=== PATIENT | female | born 1955 | race Caucasian/White ===

== ENCOUNTER → 2021-09-24 08:51 | Outpatient (CLI) | payer MEDICARE, SELFPAY ==
--- NOTE | 2021-09-24 | DI.MG.S_ITS ---
BILATERAL DIGITAL SCREENING MAMMOGRAM 3D/2D WITH CAD: 09/24/2021 CLINICAL: Routine screening. Personal history of right breast cancer. Comparison is made to exams dated: 11/04/2018 mammogram - [facility], 09/17/2016 mammogram, and 10/18/2014 mammogram - [facility]. There are scattered fibroglandular elements in both breasts. Current study was also evaluated with a Computer Aided Detection (CAD) system. There are benign calcifications in both breasts. There also are benign post operative findings in the right breast. No significant masses, calcifications, or other findings are seen in either breast. There has been no significant interval change. IMPRESSION: BENIGN There is no mammographic evidence of malignancy. A 1 year screening mammogram is recommended. This exam was interpreted at Station ID: [id number]. NOTE: For mammograms, a report in lay terms will be sent to the patient. Approximately 15% of breast malignancies will not be visualized mammographically. In the management of a palpable breast mass, a negative mammogram must not discourage biopsy of a clinically suspicious lesion. Electronically Signed By: Osman Yang acr/penrad:09/24/2021 10:15:22 letter sent: Normal Exam ACR BI-RADS Category 2: Benign Finding(s) 3342F
== END ==
PROVIDERS: Family Provider Family Medicine; PCP Family Medicine; Referring Provider Family Medicine; Visit Provider Family Medicine
DX: Z12.31 Encounter for screening mammogram for malignant neoplasm of breast (principal); Z85.3 Personal history of malignant neoplasm of breast
CPT/HCPCS: 77063; 77067

== ENCOUNTER 2021-11-21 13:57 | Observation (INO) | payer MEDICARE, SELFPAY ==
[2021-11-21] VITALS (7 sets, daily range): BP systolic 148–181; BP diastolic 49–72; PULSE 69–79; RESP 13–19; TEMP 36.9–37.1; O2SAT 94–100; BMI 23.3
--- NOTE | 2021-11-21 14:22 | DI.CT.S_ITS ---
PROCEDURE: CT HEAD/BRAIN WO CON INDICATIONS: neuro symptoms, dizzy, diplopia, gaze disturbance, NOT TPA TECHNIQUE: Noncontrast 4.5 mm thick angled axial sections acquired from the foramen magnum to the vertex, with coronal and sagittal reformats. For radiation dose reduction, the following was used: automated exposure control, adjustment of mA and/or kV according to patient size. COMPARISON: [facility], CT, CT ANGIO HEAD AND NECK, 11/21/2021, 14:33. FINDINGS: Image quality: There is artifact associated with the metallic hardware. Mild streak artifact can be seen through the skull base. CSF spaces: Basal cisterns are patent. No extra-axial fluid collections. The ventricles are symmetric in size and shape. Brain: Coils are seen along the left aspect of the left aspect of the anterior communicating artery. No intracranial bleeds or masses. There is cerebral volume loss for age, with resultant ventricular and sulcal prominence. There are periventricular and deep white matter chronic small vessel ischemic changes. There is intracranial internal carotid artery atherosclerosis. Skull and face: Calvarium and visualized facial bones appear intact, without suspicious lesions. Sinuses: Visualized sinuses and mastoids are clear. IMPRESSION: No acute intracranial hemorrhage is seen. No acute intracranial process is seen. Coils are seen along region of the left aspect of the anterior communicating artery. Note: Case discussed by telephone with Dr. Jain at 2:05 p.m. [place] time on November 21, 2021. Dictated by: Eduardo Sue M.D. on 11/21/2021 at 14:02 Approved by: Eduardo Sue M.D. on 11/21/2021 at 14:11
--- NOTE | 2021-11-21 14:23 | DI.CT.S_ITS ---
PROCEDURE: CT ANGIO HEAD AND NECK INDICATIONS: stroke symptoms TECHNIQUE: Noncontrast images were performed earlier in the day and not repeated. After the administration of intravenous contrast, 1 mm thick sections acquired from the aortic arch through the [place]. Post-contrast 4.5 mm thick sections then re-acquired from the foramen magnum to the vertex. 3-dimensional yaffxme-jfeqnfsro-xtqiobbimc (MIP) and/or volume rendering reformats were acquired of the central intracranial vasculature and neck separately. COMPARISON: [facility], CT, CT HEAD/BRAIN WO CON, 11/21/2021, 14:33. FINDINGS: Image quality: Excellent. BRAIN: CSF spaces: Ventricles are normal in size and shape. Basal cisterns are patent. No extra-axial fluid collections. Brain: No midline shift. No intracranial bleeds or masses. [place]-white matter interface appears intact. Skull and face: Calvarium and facial bones appear intact, without suspicious lesions. Orbits appear normal. Sinuses: Sinuses and mastoids are clear. HEAD CT ANGIOGRAPHY: Anterior circulation: Intracranial internal carotid arteries are normal in size and flow. There is a hypoplastic right A1 segment, with a corresponding robust left A1 segment. This is considered to be a normal developmental variant of the [place], of typically no clinical consequence. The flow within the paired anterior cerebral arteries is otherwise normal and symmetric. The flow within the middle cerebral arteries is normal and symmetric. The anterior communicating artery is seen. Coils are seen along the left aspect of the anterior communicating artery. No recurrent aneurysm can be seen. No new aneurysms are seen. Posterior circulation: Visualized portions of the vertebral arteries demonstrate normal caliber, and join to form a normal appearing basilar artery. Flow within the posterior cerebral arteries is normal and symmetric. No aneurysms are seen. NECK CT ANGIOGRAPHY: Carotid system: The great vessels demonstrate a conventional anatomy as they arise from the aortic arch. The origins of the common carotid arteries appear patent. The common carotid arteries demonstrate normal caliber and courses. Prominent atherosclerotic calcification can be seen throughout. Prominent focal calcification can be seen involving the carotid bifurcation regions, with 80-90% narrowing on the left and 70 80% narrowing on the right. The more distal internal carotid arteries demonstrate normal course and caliber. Posterior circulation: The origins of the vertebral arteries both appear widely patent. The more superior extracranial portions of both vertebral arteries also demonstrate normal courses and calibers. They join to form a normal appearing basilar artery. Soft tissues: Visualized neck soft tissues demonstrate no suspicious abnormalities. Likely scarring can be seen at the lung apices. Bones: No suspicious bony lesions. Visualized cervical spine appears normally aligned. At least moderate cervical spine degenerative change can be seen. IMPRESSION: Dense atherosclerotic calcification with significant narrowing can be seen involving the proximal internal carotid arteries, with 80-90% narrowing on the left and 70-80% narrowing on the right. Vascular surgery/interventional radiology consultation is recommended. 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 No new aneurysm is detected. 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 Note: Case discussed by telephone with Dr. Jain at 2:05 p.m. [place] time on November 21, 2021. Any quantitative measurements of stenosis were performed using NASCET criteria. Dictated by: Eduardo Sue M.D. on 11/21/2021 at 14:11 Approved by: Eduardo Sue M.D. on 11/21/2021 at 14:14
--- NOTE | 2021-11-21 14:33 | ED.NEUROSD ---
HPI - Neuro Symptoms/Deficit General Chief Complaint: Neuro Symptoms/Deficit Stated Complaint: Needs neurological exam- sent from [facility] Time Seen by Provider: 11/21/21 14:03 Source: patient Mode of arrival: Wheelchair History of Present Illness HPI Narrative: 65F nonsmoker with history of hypertension and hyperlipidemia presents with family from her primary care provider's office for neurologic symptoms upon waking today. She went to bed in her normal state of health and woke up at 8 3 this morning and noticed that her right eye was not working correctly and she sees double. She has a history of PTSD and relates her chronic gait disturbance to this but states she is much more dizzy and having more difficulty ambulating than normal. She states this is more than just double vision. She denies any recent trauma or head injury. She has no neck pain. She denies fever or chills. She denies any other obvious focal neurologic symptoms such as numbness, tingling or weakness. She had an aneurysm clipped years ago. On Anticoagulants: No Related Data Previous Rx's Medication Instructions Recorded ibuprofen 600 mg tablet 600 mg PO Q6HP PRN #60 tab 12/17/16 losartan 50 mg tablet (Cozaar) 50 mg PO Q DAY #90 tab 12/23/16 sertraline 100 mg tablet 100 mg PO QDAY #90 tab 02/11/17 propranolol 10 mg tablet 10 mg PO BID #180 tab 02/26/17 atorvastatin 40 mg tablet (Lipitor) 40 mg PO HS #90 tab 03/05/17 omeprazole 20 mg tablet,delayed 20 mg PO QDAY #90 tab 03/19/17 release ibandronate 150 mg tablet (Boniva) 150 mg PO Q MONTH #6 tab 04/03/17 alprazolam 0.25 mg tablet 0.25 mg PO QDAYP PRN #28 tab 04/07/17 prednisone 20 mg tablet 20 mg PO QDAY #10 tab 04/11/17 prednisone 5 mg tablets in a dose 0 PO QDAY #28 tab 04/21/17 pack spironolactone 25 mg tablet 0 PO SEE INSTRUCTIONS #120 tab 06/20/17 Allergies Allergy/AdvReac Type Severity Reaction Status Date / Time meperidine [MEPERIDINE] Allergy Mild RASH Verified 11/21/21 14:16 lisinopril [LISINOPRIL] AdvReac Mild ough Verified 11/21/21 14:16 Review of Systems Review of Systems Narrative: GENERAL: Denies chills, fatigue, malaise, fever, sweats. HEENT: Denies sinus pain, ear pain, sore throat, difficulty swallowing, dizziness. RESPIRATORY: Denies dyspnea, cough, wheezing, hemoptysis, sputum. CARDIOVASCULAR: Denies chest pain, palpitations, orthopnea, edema, GASTROINTESTINAL: Denies nausea, vomiting, abdominal pain, diarrhea, constipation, melena. : Denies dysuria, frequency, incontinence, hematuria, urinary retention. MUSCULOSKELETAL: denies weakness, joint pain, or bony pain SKIN: Denies rash, skin lesions, or other NEUROLOGIC: See HPI PSYCHIATRIC: No concerning psychosocial issues. 12 point review of systems is negative except for those stated above Hematologic/Lymphatic On Anticoagulants: No Patient History Social History Smoking Status: Unknown if ever smoked Smoking Status: Unknown if ever smoked alcohol intake frequency: holidays/special occasions only Substance Use Type: does not use Exam Narrative Exam Narrative: GENERAL: [65 year old patient appears stated age. Well-developed patient, in mild distress. HEAD: Atraumatic. Normocephalic. EYES: Pupils equal round and reactive. Extraocular motions intact. Patient has ptosis of the right upper lid, patient unable toscleral icterus. No injection or drainage. ENT: Nose without bleeding, purulent drainage. Throat without erythema, tonsillar hypertrophy or exudate. Airway patent. NECK: Trachea midline. Non tender CARDIOVASCULAR: Regular rate and rhythm without murmurs, gallops, or rubs. RESPIRATORY: Clear to auscultation. Breath sounds equal bilaterally. No wheezes, rales, or rhonchi. GASTROINTESTINAL: Abdomen soft, non-tender, nondistended. EXTREMITIES: No edema or joint tenderness. BACK: Nontender without deformity or crepitance. No flank tenderness. NEURO: AOx3. SKIN: No rash or erythema of visible areas Initial Vital Signs Initial Vital Signs: Vital Signs Temperature 98.7 F 11/21/21 14:10 Pulse Rate 79 11/21/21 14:10 Respiratory Rate 14 11/21/21 14:10 Blood Pressure 181/72 H 11/21/21 14:10 Pulse Oximetry 99 11/21/21 14:10 Scores NIH Stroke Scale Level of Conciousness: Alert, keenly responsive Ask month/age: Answers both questions correctly. Open/close eyes, close hand: Performs both tasks correctly Best gaze horizontal: Forced deviation or total gaze paresis not overcome Visual judd: No visual loss Facial palsy: Normal symetrical movement Left arm drift: No drift for full 10 sec Right arm drift: No drift for full 10 sec Left leg drift: No drift for full 5 sec Right leg drift: No drift for full 5 sec Limb ataxia: Absent Sensory on face/arms/legs: Normal, no sensory loss Best language: No aphasia, normal Dysarthria: Normal Extinction or inattention: No abnormality Total NIH Stroke scale score: 2 Course Orders Ordered: ED Orders 11/21/21 14:22 CT head/brain wo con Stat EKG-12 Lead Stat 11/21/21 14:23 CT angio head and neck Stat 11/21/21 14:30 Urine Drug Screen, Rapid Stat Urine Microscopic Stat 11/21/21 14:40 COVID19 -Nasal swab/Pre-Proc Stat 11/21/21 15:15 CRP [C-Reactive Protein Quant] Stat Complete Blood Count AUTO DIFF Stat Comprehensive Metabolic Panel Stat ESR [Erythrocyte Sedimentation Rate] Stat Troponin & CK Cardiac Panel Stat Sodium Chloride (Normal Saline 0.9%) 1,000 mls @ 150 mls/hr IV CONT CORNEL Last Admin: 11/21/21 14:45 Dose: 150 mls/hr Documented by: ADELSO Discontinued Medications Aspirin (Aspirin 81 Mg Chew Tab) 324 mg PO NOW ONE Stop: 11/21/21 15:37 Last Admin: 11/21/21 15:41 Dose: 324 mg Documented by: ADELSO Consultations Consultation #1: discussed with Telestroke, no indication for any intervention. Appropriate for admission here with typical stroke evaluation. Consultation #2: hospitalist happy to accept Vital Signs Vital signs: Vital Signs - 8 hr 11/21/21 14:10 11/21/21 14:13 11/21/21 14:14 Temperature 98.7 F Pulse Rate 79 69 Respiratory Rate 14 Blood Pressure 181/72 H 181/72 H Pulse Oximetry 99 94 99 11/21/21 14:30 11/21/21 15:00 Temperature Pulse Rate 71 76 Respiratory Rate 19 13 Blood Pressure Pulse Oximetry 100 100 MDM - Neuro Symptoms/Deficit Lab Data Result diagrams: 11/21/21 15:15 11/21/21 15:15 Labs: Lab Results 11/21/21 11/21/21 11/21/21 Range/Units 14:30 14:30 14:40 WBC (4.5-11.0) X10^3/uL RBC (4.0-5.2) X10^6/uL Hgb (12.0-16.0) g/dL Hct (36-46) % MCV (80-100) fL MCH (26-34) PG MCHC (30-36) % RDW (11.6-14.8) % Plt Count (150-400) X10^3/uL Neut % (Auto) (50-75) % Lymph % (Auto) (25-40) % [place] % (Auto) (3-14) % Eos % (Auto) (2-4) % Baso % (Auto) (0-2) % Neut # (Auto) (3531-2178) /uL Lymph # (Auto) (7450-1123) /uL [place] # (Auto) (0-900) /uL Eos # (Auto) (0-450) /uL Baso # (Auto) (0-100) /uL Sodium (137-145) mmol/L Potassium (3.4-5.1) mmol/L Chloride (98-107) mmol/L Carbon Dioxide (22-32) mmol/L BUN (7-17) mg/dL Creatinine (0.52-1.04) mg/dL Estimated GFR (>60) mL/min BUN/Creatinine Ratio (6-22) Glucose (80-110) mg/dL Calcium (8.4-10.2) mg/dL Total Bilirubin (0.2-1.3) mg/dL AST (14-36) IU/L ALT (<35) IU/L Alkaline Phosphatase (38-126) U/L Total Creatine Kinase (30-135) U/L CK-MB (CK-2) CK-MB (CK-2) Rel Index Troponin I (0.01-0.034) ng/mL C-Reactive Protein (<1.0) mg/dL Total Protein (6.3-8.2) g/dL Albumin (3.5-5.0) g/dL Globulin (1.7-4.1) g/dL Albumin/Globulin Ratio (1.0-2.8) Urine RBC None seen (0-5/HPF) Urine WBC 1-5/hpf (0-5/HPF) Ur Squamous Epith Cells >30 /hpf H (0-5/HPF) Urine Bacteria Many (>30) H (None) Ur Culture Indicated? Cult not indicated U Opiates 300ng/mL cut Negative (Negative) Ur Oxycodone Screen Negative (Negative) Urine Methadone Screen Negative (Negative) Ur Barbiturates Screen Negative (Negative) U Tricyclic Antidepress Negative (Negative) Ur Phencyclidine Scrn Negative (Negative) Ur Amphetamines Screen Negative (Negative) U Methamphetamines Scrn Negative (Negative) Ur MDMA Scrn (Ecstasy) Negative (Negative) U Benzodiazepines Scrn Negative (Negative) Urine Cocaine Screen Negative (Negative) U Marijuana (THC) Screen Negative (Negative) SARS-CoV-2 (PCR) Negative (Negative) 11/21/21 11/21/21 11/21/21 Range/Units 15:15 15:15 15:15 WBC 4.9 (4.5-11.0) X10^3/uL RBC 2.73 L (4.0-5.2) X10^6/uL Hgb 9.5 L (12.0-16.0) g/dL Hct 27.8 L (36-46) % MCV 101.8 H (80-100) fL MCH 34.7 H (26-34) PG MCHC 34.1 (30-36) % RDW 12.3 (11.6-14.8) % Plt Count 181 (150-400) X10^3/uL Neut % (Auto) 78.0 H (50-75) % Lymph % (Auto) 10.9 L (25-40) % [place] % (Auto) 8.7 (3-14) % Eos % (Auto) 1.9 L (2-4) % Baso % (Auto) 0.5 (0-2) % Neut # (Auto) 3800 (9508-7680) /uL Lymph # (Auto) 500 L (0284-2421) /uL [place] # (Auto) 400 (0-900) /uL Eos # (Auto) 100 (0-450) /uL Baso # (Auto) 0 (0-100) /uL Sodium 131 L (137-145) mmol/L Potassium 5.4 H (3.4-5.1) mmol/L Chloride 98 (98-107) mmol/L Carbon Dioxide 24 (22-32) mmol/L BUN 34 H (7-17) mg/dL Creatinine 1.50 H (0.52-1.04) mg/dL Estimated GFR 34.6 L (>60) mL/min BUN/Creatinine Ratio 22.7 H (6-22) Glucose 113 H (80-110) mg/dL Calcium 9.9 (8.4-10.2) mg/dL Total Bilirubin 0.4 (0.2-1.3) mg/dL AST 35 (14-36) IU/L ALT 17 (<35) IU/L Alkaline Phosphatase 102 (38-126) U/L Total Creatine Kinase 62 (30-135) U/L CK-MB (CK-2) TNP CK-MB (CK-2) Rel Index TNP Troponin I < 0.012 (0.01-0.034) ng/mL C-Reactive Protein < 0.5 (<1.0) mg/dL Total Protein 7.7 (6.3-8.2) g/dL Albumin 4.6 (3.5-5.0) g/dL Globulin 3.1 (1.7-4.1) g/dL Albumin/Globulin Ratio 1.5 (1.0-2.8) Urine RBC (0-5/HPF) Urine WBC (0-5/HPF) Ur Squamous Epith Cells (0-5/HPF) Urine Bacteria (None) Ur Culture Indicated? U Opiates 300ng/mL cut (Negative) Ur Oxycodone Screen (Negative) Urine Methadone Screen (Negative) Ur Barbiturates Screen (Negative) U Tricyclic Antidepress (Negative) Ur Phencyclidine Scrn (Negative) Ur Amphetamines Screen (Negative) U Methamphetamines Scrn (Negative) Ur MDMA Scrn (Ecstasy) (Negative) U Benzodiazepines Scrn (Negative) Urine Cocaine Screen (Negative) U Marijuana (THC) Screen (Negative) SARS-CoV-2 (PCR) (Negative) Point of Care Testing Glucose POC 106 Urine Dip Bedside Urine Glucose Negative Bedside Urine Bilirubin - Negative Bedside Urine Ketone - Negative Urine Specific [place] 1.020 Bedside Urine Occult Blood - Negative Bedside Urine pH 5.5 Bedside Urine Protein - Negative Bedside Urine Urobilinogen - Negative Bedside Urine Nitrite - Negative Bedside Urine Leukocytes +/- [address] scan - head: Radiologist's Impression: [address] [address] [address] Scan Report Signed Patient: Jackie Wayne MR#: [id number] : 1955 Acct:[id number] Age/Sex: 65 / F Date of Service: 11/21/21 Loc: ED Accession Number: [id number] ?? Procedure: CT head/brain wo con Ordering Provider: Crispin Jain D.O. PROCEDURE:? CT HEAD/BRAIN WO CON ? INDICATIONS:? neuro symptoms, dizzy, diplopia, gaze disturbance, NOT TPA ? TECHNIQUE:? Noncontrast 4.5 mm thick angled axial sections acquired from the foramen magnum to the vertex, with coronal and sagittal reformats.? For radiation dose reduction, the following was used:? automated exposure control, adjustment of mA and/or kV according to patient size.? ? COMPARISON:? [facility], CT, CT ANGIO HEAD AND NECK, 11/21/2021, 14:33. ? FINDINGS:? Image quality:? There is artifact associated with the metallic hardware. ? Mild streak artifact can be seen through the skull base. ? CSF spaces:? Basal cisterns are patent.? No extra-axial fluid collections.? The ventricles are symmetric in size and shape.? ? Brain:? Coils are seen along the left aspect of the left aspect of the anterior communicating artery. ? No intracranial bleeds or masses.? There is cerebral volume loss for age, with resultant ventricular and sulcal prominence.? There are periventricular and deep white matter chronic small vessel ischemic changes.? There is intracranial internal carotid artery atherosclerosis.? ? Skull and face:? Calvarium and visualized facial bones appear intact, without suspicious lesions.? ? Sinuses:? Visualized sinuses and mastoids are clear.? ? ? IMPRESSION:? No acute intracranial hemorrhage is seen.? ? No acute intracranial process is seen.? ? Coils are seen along region of the left aspect of the anterior communicating artery. ? ? Note: Case discussed by telephone with Dr. Jain at 2:05 p.m. [place] time on November 21, 2021.? ? ? Dictated by: Eduardo Sue M.D. on 11/21/2021 at 14:02 ? ? Approved by: Eduardo Sue M.D. on 11/21/2021 at 14:11 ? Launch?Image [address] [address] [address] Scan Report Signed Patient: Jackie Wayne MR#: [id number] : 1955 Acct:[id number] Age/Sex: 65 / F Date of Service: 11/21/21 Loc: ED Accession Number: [id number] ?? Procedure: CT angio head and neck Ordering Provider: Crispin Jain D.O. PROCEDURE:? CT ANGIO HEAD AND NECK ? INDICATIONS:? stroke symptoms ? TECHNIQUE:? Noncontrast images were performed earlier in the day and not repeated.? ? After the administration of intravenous contrast, 1 mm thick sections acquired from the aortic arch through the [place] of [place].? Post-contrast 4.5 mm thick sections then re-acquired from the foramen magnum to the vertex.? 3-dimensional vqgjpco-lvzzhweoh-whzaclzxrs (MIP) and/or volume rendering reformats were acquired of the central intracranial vasculature and neck separately. ? COMPARISON:? [facility], CT, CT HEAD/BRAIN WO CON, 11/21/2021, 14:33. ? FINDINGS:? Image quality:? Excellent.? ? BRAIN:? CSF spaces:? Ventricles are normal in size and shape.? Basal cisterns are patent.? No extra-axial fluid collections.? ? Brain:? No midline shift.? No intracranial bleeds or masses.? Ramsey-white matter interface appears intact.? ? Skull and face:? Calvarium and facial bones appear intact, without suspicious lesions.? Orbits appear normal.? ? Sinuses:? Sinuses and mastoids are clear.? ? HEAD CT ANGIOGRAPHY:? Anterior circulation:? Intracranial internal carotid arteries are normal in size and flow. There is a hypoplastic right A1 segment, with a corresponding robust left A1 segment.? This is considered to be a normal developmental variant of the [place], of typically no clinical consequence.? ? The flow within the paired anterior cerebral arteries is otherwise normal and symmetric.? The flow within the middle cerebral arteries is normal and symmetric.? The anterior communicating artery is seen.? Coils are seen along the left aspect of the anterior communicating artery.? No recurrent aneurysm can be seen.? No new aneurysms are seen.? ? Posterior circulation:? Visualized portions of the vertebral arteries demonstrate normal caliber, and join to form a normal appearing basilar artery.? Flow within the posterior cerebral arteries is normal and symmetric.? No aneurysms are seen.? ? NECK CT ANGIOGRAPHY:? Carotid system:? The great vessels demonstrate a conventional anatomy as they arise from the aortic arch.? The origins of the common carotid arteries appear patent.? The common carotid arteries demonstrate normal caliber and courses.? ? Prominent atherosclerotic calcification can be seen throughout.? Prominent focal calcification can be seen involving the carotid bifurcation regions, with 80-90% narrowing on the left and 70 80% narrowing on the right. The more distal internal carotid arteries demonstrate normal course and caliber.? ? Posterior circulation:? The origins of the vertebral arteries both appear widely patent.? The more superior extracranial portions of both vertebral arteries also demonstrate normal courses and calibers.? They join to form a normal appearing basilar artery.? ? Soft tissues:? Visualized neck soft tissues demonstrate no suspicious abnormalities.? Likely scarring can be seen at the lung apices. ? Bones:? No suspicious bony lesions.? Visualized cervical spine appears normally aligned.? At least moderate cervical spine degenerative change can be seen. ? ? IMPRESSION:? Dense atherosclerotic calcification with significant narrowing can be seen involving the proximal internal carotid arteries, with 80-90% narrowing on the left and 70-80% narrowing on the right. ? Vascular surgery/interventional radiology consultation is recommended. ? 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 ? No new aneurysm is detected. ? 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 ? Note: Case discussed by telephone with Dr. Jain at 2:05 p.m. [place] time on November 21, 2021. ? ? Any quantitative measurements of stenosis were performed using NASCET criteria.? ? ? Dictated by: Eduardo Sue M.D. on 11/21/2021 at 14:11 ? ? Approved by: Eduardo Sue M.D. on 11/21/2021 at 14:14 ? MDM Narrative Medical decision making narrative: #[id number]: Stroke & Stroke Rehabilitation: Thrombolytic Therapy [] The patient, who arrived at the hospital within 2 hours of time last known well, was diagnosed with subacute or acute ischemic stroke. IV t-PA was initiated within 3 hours of time last known well. [SATISFIES MIPS PERFORMANCE] [] The patient was diagnosed with subacute or acute ischemic stroke. IV t-PA was not initiated within 3 hours of last known well due to [select]: [MIPS PERFORMANCE EXCEPTION/EXCLUSION] [x] Patient arrived more than 2 hours after last known well time, or the time last known well is unknown, no indication for TPA [] Patient has a medical contra-indication or reason for not administering [] (ex. neurologist does not believe t-PA is appropriate, active internal bleeding, serious head trauma, acute current or history of intracranial hemorrhage, uncontrollable hypertension, seizure at onset of stroke, CVA in last 3 months, Intracranial or intraspinal surgery in last 3 months, bleeding disorder, thrombocytopenia < 100,000, early radiographic ischemic changes on head CT, INR > 1.7, intracranial neoplasm, AVM, or aneurysm, patient in stroke trial, patient admitted for elective carotid intervention) []Patient or family declined IV t-PA [] The patient, who arrived at the hospital within 2 hours of time last known well, was diagnosed with subacute or acute ischemic stroke. IV t-PA was not initiated within 3 hours of time last known well. [DOES NOT SATISFY MIPS PERFORMANCE] Discharge Plan Departure Patient Disposition: Admitted as Observation Clinical Impression: Stroke, Cranial nerve III palsy Admit Date/Time: 11/21/21 15:43 Admit Provider: Davey Hoffman
[2021-11-21 14:41] LABS: UR Morphine/Opiate cutoff 300 Negative (Negative); Ur Creatinine Normal (Normal); Ur Specific Gravity Normal (Normal); Urine Amphetamines Negative (Negative); Urine Barbiturates Negative (Negative); Urine Benzodiazepines Negative (Negative); Urine Cocaine Negative (Negative); Urine MDMA Negative (Negative); Urine Methadone Negative (Negative); Urine Methamphetamines Negative (Negative); Urine Oxycodone Negative (Negative); Urine Phencyclidine Negative (Negative); Urine Tetrahydrocannabinol Negative (Negative); Urine Tricyclic Antidepressant Negative (Negative); Urine pH Normal (Normal)
[2021-11-21] MEDS: SODIUM CHLORIDE 0.9% 1,000 ML 150 ML IV (14:45)
[2021-11-21 14:48] LABS: Bacteria Urine Many (>30); Culture Indicated Urine Cult Not Indicated; RBC Urine None Seen (0-5/HPF); Squamous Epithelial Cell Urine >30 /HPF (0-5/HPF); WBC Urine 1-5/HPF (0-5/HPF)
[2021-11-21 15:25] LABS: COVID19 -Nasal RAPID Negative (Negative)
[2021-11-21 15:30] LABS: Alanine Aminotransferase 17 IU/L (<35); Albumin 4.6 g/dL (3.5-5.0); Albumin Globulin Ratio 1.5 (1.0-2.8); Alkaline Phosphatase 102 U/L (38-126); Aspartate Aminotransferase 35 IU/L (14-36); BUN Creatinine Ratio 22.7 (6-22); Bilirubin Total 0.4 mg/dL (0.2-1.3); Blood Urea Nitrogen 34 mg/dL (7-17); Calcium 9.9 mg/dL (8.4-10.2); Carbon Dioxide 24 mmol/L (22-32); Chloride 98 mmol/L (98-107); Creatine Kinase 62 U/L (30-135); Estimated Glomerular Filt Rate 34.6 mL/min (>60); Globulin 3.1 g/dL (1.7-4.1); Glucose 113 mg/dL (80-110); HEMOLYSIS < 15 (0-50); Sodium 131 mmol/L (137-145); Total Protein 7.7 g/dL (6.3-8.2)
[2021-11-21 15:31] LABS: Potassium 5.4 mmol/L (3.4-5.1)
--- NOTE | 2021-11-21 15:34 | PC.NURSE ---
Pt's R-eye has gaze palsy, noted in NIH exam, Dr. Xie at bedside. NIH score 1.
[2021-11-21 15:41] LABS: Troponin I < 0.012 ng/mL (0.01-0.034)
[2021-11-21] MEDS: ASPIRIN 81 MG CHEW TAB 324 MG PO (15:41)
[2021-11-21 15:43] LABS: Add Manual Diff / Slide Review NO; Basophils Absolute Auto 0 /uL (0-100); Basophils Percent Auto 0.5 % (0-2); Eosinophils Absolute Auto 100 /uL (0-450); Eosinophils Percent Auto 1.9 % (2-4); Hematocrit 27.8 % (36-46); Hemoglobin 9.5 g/dL (12.0-16.0); Lymphocytes Absolute Auto 500 /uL (1100-4500); Lymphocytes Percent Auto 10.9 % (25-40); Mean Corpuscular HGB Conc 34.1 % (30-36); Mean Corpuscular Hemoglobin 34.7 PG (26-34); Mean Corpuscular Volume 101.8 fL (80-100); Monocytes Absolute Auto 400 /uL (0-900); Monocytes Percent Auto 8.7 % (3-14); Neutrophils Absolute Auto 3800 /uL (1500-7000); Platelet Count 181 X10^3/uL (150-400); Red Blood Cell Count 2.73 X10^6/uL (4.0-5.2); Red Cell Distribution Width 12.3 % (11.6-14.8); White Blood Cell Count 4.9 X10^3/uL (4.5-11.0)
--- NOTE | 2021-11-21 15:44 | PC.NURSE ---
Pt states she went to bed last night at 9pm, awoke at 0830 and while in bed she could tell something was not right. She states her right eye is fuzzy and doesn't look right. NIH stroke scale = 1 for gaze palsy.
[2021-11-21 15:45] LABS: C-Reactive Protein Quant < 0.5 mg/dL (<1.0)
[2021-11-21 16:08] LABS: Erythrocyte Sedimentation Rate 28 MM/HR (0-20)
--- NOTE | 2021-11-21 18:59 | PC.NURSE ---
Addendum entered by Erica Doran R.N. 11/21/21 19:03: NIH stroke scale a 1. Patient is comfortable. Original Note: Assess- Patient admitted for r/0 cva. She has some vision issues to the r.eye. She is having a hard time tracking to the left when putting finger in front of her nose and shifting each way. She has a symmetrical smile, is able to read words, and lift both her arms and legs. She denies pain. in talking to patient.
--- NOTE | 2021-11-21 19:02 | P.HP_ITS ---
History of Present Illness History of Present Illness Date Patient Seen: 11/21/21 Time Patient Seen: 19:02 Chief complaint: Needs neurological exam- sent from [facility] Narrative: This is a 65-year-old female with a past medical history of left-sided cerebral aneurysm status post coiling approximately 8 years ago, hypertension, PTSD who initially presented to her primary care provider on [place] this morning for new onset of blurry vision this morning, as well as an inability to move her right eye medially. She woke up with this phenomenon this morning with last known normal before she went to sleep. She Denies any recent headache, numbness, tingling. She has noticed some memory issues over the past couple of years as well as some worsening in balance as well over this time but she has been much less active. She also states that she has intentionally lost about 40 lb over the past 2 years. She denies any dark stools, hematemesis, or coffee-ground emesis. She denies any recent fever, chills, slurred speech, or facial droop. In the emergency room, the patient was mildly hypertensive, but the remainder of her vital signs were unremarkable. She had a CT noncontrast of her head which did not show any bleeding and a CT angiogram of her head and neck which did show bilateral carotid stenosis which will require outpatient follow-up, as well as her prior left-sided aneurysm coils but no new aneurysm was able to be identified. Given her prior brain coils, patient is unable to undergo an MRI unless further records can be found according to radiology department. Laboratory evaluation was notable for a mild anemia with a hemoglobin of 9.5, MCV is elevated at 101.8. ESR is just above normal at 28. She had a mild elevation in her creatinine at 1.5, sodium was 131 and potassium was 5.4. The remainder of her chemistries were unremarkable. Troponin was negative. CRP was negative. Urinalysis was contaminated but minimal WBCs were seen. Urine drug screen was negative. COVID-19 testing was negative. Patient was admitted for further management of isolated cranial nerve 3 palsy, likely secondary to acute ischemia. Patient History Medical History (Updated 11/21/21 @ 19:35 by Davey Hoffman DO) Cerebral aneurysm Malignant neoplasm of breast (female), unspecified site (06/25/02) Unspecified essential hypertension (06/25/02) Surgical History (Updated 11/21/21 @ 19:35 by Davey Hoffman DO) H/O bilateral oophorectomy History of lumpectomy of right breast S/P coil embolization of cerebral aneurysm Family & Social History Family History (Updated 11/21/21 @ 19:03 by Davey Hoffman DO) Brother Cancer Mother Cerebral aneurysm Social History: household members spouse Prior Living Arrangements House Safety & Behavioral: Feels Safe in Current Yes Environment Been Physically Hurt or No Threatened By a Person Suicidal Ideation Description None Suicide Plan Description No Plan Tobacco & Substance use: Smoking Status Never smoker alcohol intake current alcohol intake frequency 0-2 drinks per day Substance Use Type does not use Meds Home Medications and Allergies Home Medications Medication Instructions Recorded Confirmed Type ibuprofen 600 mg tablet 600 mg PO Q6HP PRN #60 tab 12/17/16 11/21/21 Rx losartan 50 mg tablet (Cozaar) 50 mg PO Q DAY #90 tab 12/23/16 11/21/21 Rx sertraline 100 mg tablet 100 mg PO QDAY #90 tab 02/11/17 11/21/21 Rx propranolol 10 mg tablet 10 mg PO BID #180 tab 02/26/17 11/21/21 Rx atorvastatin 40 mg tablet (Lipitor) 40 mg PO HS #90 tab 03/05/17 11/21/21 Rx omeprazole 20 mg tablet,delayed 20 mg PO QDAY #90 tab 03/19/17 11/21/21 Rx release alprazolam 0.25 mg tablet 0.25 mg PO QDAYP PRN #28 tab 04/07/17 11/21/21 Rx spironolactone 25 mg tablet 0 PO SEE INSTRUCTIONS #120 tab 06/20/17 Rx Allergies Allergy/AdvReac Type Severity Reaction Status Date / Time meperidine [MEPERIDINE] Allergy Mild RASH Verified 11/21/21 14:16 lisinopril [LISINOPRIL] AdvReac Mild ough Verified 11/21/21 14:16 Review of Systems Review of Systems Narrative: All other systems reviewed with the patient and are negative unless otherwise stated. Exam Vital Signs (past 8 hours): - 11/21/21 14:10 11/21/21 14:13 11/21/21 14:14 Temperature 98.7 F Pulse Rate 79 69 Respiratory Rate 14 Blood Pressure 181/72 H 181/72 H Pulse Oximetry 99 94 99 02/09/22 14:30 11/21/21 15:00 Temperature Pulse Rate 71 76 Respiratory Rate 19 13 Blood Pressure Pulse Oximetry 100 100 Oxygen Delivery Method Room Air Narrative Exam Narrative: GENERAL APPEARANCE: Well developed, well nourished, in no acute distress. SKIN: Inspection of the skin reveals no rashes, ulcerations or petechiae. HEENT: Normocephalic atraumatic, extraocular muscles are intact, oropharynx is clear and mucous membranes are moist, neck is supple without adenopathy NECK: Supple and symmetric. There was no thyroid enlargement, and no tenderness, or masses were felt. CHEST: Normal AP diameter and normal contour without any kyphoscoliosis. LUNGS: Auscultation of the lungs revealed no wheezes, rhonchi, or rales. CARDIOVASCULAR: There was a regular rate and rhythm without any murmurs, gallops, rubs. Peripheral pulses were 2+ and symmetric. ABDOMEN: Soft and nontender with normal bowel sounds. No ascites was noted. MUSCULOSKELETAL: There was no tenderness or effusions noted. Muscle strength and tone were normal. EXTREMITIES: No cyanosis, clubbing or edema. NEUROLOGIC: Alert and oriented x 3. Normal affect. Isolated CN 3 palsy on the R, PERRLA (pupilar sparing), normal strength and sensation bilateral extremities. Possible slight ataxia but heel to chaparro equal bilaterally. Gait not assessed. Objective ECG Impression: NSR with significant artifact but no overt signs of ischemia. Labs Result Diagrams: 11/21/21 15:15 11/21/21 15:15 Labs: Laboratory Results - last 24 hr 11/21/21 11/21/21 11/21/21 14:30 14:30 14:40 WBC RBC Hgb Hct MCV MCH MCHC RDW Plt Count Neut % (Auto) Lymph % (Auto) Calloway % (Auto) Eos % (Auto) Baso % (Auto) Neut # (Auto) Lymph # (Auto) Calloway # (Auto) Eos # (Auto) Baso # (Auto) ESR Sodium Potassium Chloride Carbon Dioxide BUN Creatinine Estimated GFR BUN/Creatinine Ratio Glucose Calcium Total Bilirubin AST ALT Alkaline Phosphatase Total Creatine Kinase CK-MB (CK-2) CK-MB (CK-2) Rel Index Troponin I C-Reactive Protein Total Protein Albumin Globulin Albumin/Globulin Ratio Urine RBC None seen Urine WBC 1-5/hpf Ur Squamous Epith Cells >30 /hpf H Urine Bacteria Many (>30) H Ur Culture Indicated? Cult not indicated U Opiates 300ng/mL cut Negative Ur Oxycodone Screen Negative Urine Methadone Screen Negative Ur Barbiturates Screen Negative U Tricyclic Antidepress Negative Ur Phencyclidine Scrn Negative Ur Amphetamines Screen Negative U Methamphetamines Scrn Negative Ur MDMA Scrn (Ecstasy) Negative U Benzodiazepines Scrn Negative Urine Cocaine Screen Negative U Marijuana (THC) Screen Negative SARS-CoV-2 (PCR) Negative 11/21/21 11/21/21 11/21/21 15:15 15:15 15:15 WBC 4.9 RBC 2.73 L Hgb 9.5 L Hct 27.8 L MCV 101.8 H MCH 34.7 H MCHC 34.1 RDW 12.3 Plt Count 181 Neut % (Auto) 78.0 H Lymph % (Auto) 10.9 L Calloway % (Auto) 8.7 Eos % (Auto) 1.9 L Baso % (Auto) 0.5 Neut # (Auto) 3800 Lymph # (Auto) 500 L Calloway # (Auto) 400 Eos # (Auto) 100 Baso # (Auto) 0 ESR 28 H Sodium 131 L Potassium 5.4 H Chloride 98 Carbon Dioxide 24 BUN 34 H Creatinine 1.50 H Estimated GFR 34.6 L BUN/Creatinine Ratio 22.7 H Glucose 113 H Calcium 9.9 Total Bilirubin 0.4 AST 35 ALT 17 Alkaline Phosphatase 102 Total Creatine Kinase 62 CK-MB (CK-2) TNP CK-MB (CK-2) Rel Index TNP Troponin I < 0.012 C-Reactive Protein Total Protein 7.7 Albumin 4.6 Globulin 3.1 Albumin/Globulin Ratio 1.5 Urine RBC Urine WBC Ur Squamous Epith Cells Urine Bacteria Ur Culture Indicated? U Opiates 300ng/mL cut Ur Oxycodone Screen Urine Methadone Screen Ur Barbiturates Screen U Tricyclic Antidepress Ur Phencyclidine Scrn Ur Amphetamines Screen U Methamphetamines Scrn Ur MDMA Scrn (Ecstasy) U Benzodiazepines Scrn Urine Cocaine Screen U Marijuana (THC) Screen SARS-CoV-2 (PCR) 11/21/21 15:15 WBC RBC Hgb Hct MCV MCH MCHC RDW Plt Count Neut % (Auto) Lymph % (Auto) Calloway % (Auto) Eos % (Auto) Baso % (Auto) Neut # (Auto) Lymph # (Auto) Calloway # (Auto) Eos # (Auto) Baso # (Auto) ESR Sodium Potassium Chloride Carbon Dioxide BUN Creatinine Estimated GFR BUN/Creatinine Ratio Glucose Calcium Total Bilirubin AST ALT Alkaline Phosphatase Total Creatine Kinase CK-MB (CK-2) CK-MB (CK-2) Rel Index Troponin I C-Reactive Protein < 0.5 Total Protein Albumin Globulin Albumin/Globulin Ratio Urine RBC Urine WBC Ur Squamous Epith Cells Urine Bacteria Ur Culture Indicated? U Opiates 300ng/mL cut Ur Oxycodone Screen Urine Methadone Screen Ur Barbiturates Screen U Tricyclic Antidepress Ur Phencyclidine Scrn Ur Amphetamines Screen U Methamphetamines Scrn Ur MDMA Scrn (Ecstasy) U Benzodiazepines Scrn Urine Cocaine Screen U Marijuana (THC) Screen SARS-CoV-2 (PCR) Assessment & Plan Assessment & Plan narrative: This is a 65-year-old female with a past medical history of left-sided cerebral aneurysm status post coiling approximately 8 years ago, hypertension, PTSD admitted for an isolated CN 3 palsy likely due to acute CVA. 1. CVA, acute, present on admission - isolated CN 3 palsy with pupil sparing is most likely CVA. Given history of aneurysm though cannot completely rule out that though imaging is reassuring. - monitor overnight for neurological changes - start ASA and increase statin therapy. - resume home BP medications but allow for some permissive HTN. - PT/ OT consultation in the AM. - ideally would do MRI to rule out cavernous sinus etiologies or confirm ischemic CVA, however unable to currently given prior cerebral coils per radiology without records. If unable to do as inpatient here, would recommend rapid follow up with prior neurosurgeon for possible further advanced imaging at tertiary care center as an outpatient. 2. history of L cerebral aneurysm s/p coiling - no current treatment necessary. will try to get records in AM from [facility] 8 years ago to see about possible MRI. 3. HTN, chronic - resume home medications in AM, allow some permissive HTN today in setting of probable CVA. 4. PTSD - continue home medications including ativan PO at night instead of alprazolam at home. - continue sertraline Code: Full, surrogate is patient's spouseDonavon DVT: lovenox daily Dispo: Admit as observation, suspect discharge home tomorrow if neurological symptoms stable. I have utilized all available immediate resources to obtain, update, or review the patient's current medications. Time Spent With Patient Critical Care time: I spent a total of [] minutes of critical care time on this patient's care today; this time is exclusive of procedural time. Quality MIPS - Admit I confirm the patient?s Advance Care Plan is present, Code status is documented, Surrogate decision maker is in patient?s record [If Yes, STOP here]: Yes
[2021-11-21] MEDS: ATORVASTATIN 20 MG TABLET 80 MG PO (21:18)
[2021-11-21] MEDS: PROPRANOLOL 10 MG TABLET PO (21:19)
[2021-11-21] MEDS: ACETAMINOPHEN 325 MG TABLET 650 MG PO (21:19)
[2021-11-21] MEDS: LORazepam 0.5 MG TABLET PO (21:19)
[2021-11-22 01:00] VITALS: O2SAT 95
[2021-11-22 01:57] VITALS: BP 144/49; PULSE 62; RESP 19; TEMP 36.1; O2SAT 98
[2021-11-22 05:00] VITALS: BP 111/43; PULSE 62; TEMP 36.9; O2SAT 95; O2SAT 96
[2021-11-22 06:19] LABS: Add Manual Diff / Slide Review NO; Basophils Absolute Auto 0 /uL (0-100); Basophils Percent Auto 0.9 % (0-2); Eosinophils Absolute Auto 200 /uL (0-450); Eosinophils Percent Auto 6.5 % (2-4); Hematocrit 26.5 % (36-46); Hemoglobin 8.9 g/dL (12.0-16.0); Lymphocytes Absolute Auto 1000 /uL (1100-4500); Lymphocytes Percent Auto 25.7 % (25-40); Mean Corpuscular HGB Conc 33.6 % (30-36); Mean Corpuscular Hemoglobin 34.5 PG (26-34); Mean Corpuscular Volume 102.6 fL (80-100); Monocytes Absolute Auto 500 /uL (0-900); Monocytes Percent Auto 12.3 % (3-14); Neutrophils Absolute Auto 2000 /uL (1500-7000); Neutrophils Percent Auto 54.6 % (50-75); Platelet Count 163 X10^3/uL (150-400); Red Blood Cell Count 2.58 X10^6/uL (4.0-5.2); Red Cell Distribution Width 12.6 % (11.6-14.8); White Blood Cell Count 3.7 X10^3/uL (4.5-11.0)
[2021-11-22 06:33] LABS: BUN Creatinine Ratio 23.4 (6-22); Blood Urea Nitrogen 29 mg/dL (7-17); Calcium 9.8 mg/dL (8.4-10.2); Carbon Dioxide 25 mmol/L (22-32); Chloride 101 mmol/L (98-107); Estimated Glomerular Filt Rate 43.1 mL/min (>60); Glucose 99 mg/dL (80-110); HEMOLYSIS < 15 (0-50); Potassium 4.3 mmol/L (3.4-5.1); Sodium 131 mmol/L (137-145)
[2021-11-22 06:36] LABS: Hemoglobin A1C% w Est Avg Glu 5.2 % (4.0-6.0)
[2021-11-22 07:10] LABS: TSH w/ Reflex to FT4 3.01 uIU/mL (0.47-4.68)
[2021-11-22 07:30] VITALS: BP 134/52; PULSE 65; RESP 16; TEMP 37.1; O2SAT 98
--- NOTE | 2021-11-22 09:03 | PC.NURSE ---
Patients NIH scale 0. Patients r.eye is tracking to the left and to the right. Speech is clear, she denies numbness or tingling, and chest pain. Patient is steady on her feet. She may go home later today.
[2021-11-22] MEDS: ENOXAPARIN 40 MG/0.4 ML SYRINGE SUBCUT (09:21)
[2021-11-22] MEDS: SERTRALINE 50 MG TABLET 100 MG PO (09:21)
[2021-11-22] MEDS: ASPIRIN EC 81 MG TABLET PO (09:21)
--- NOTE | 2021-11-22 10:15 | OT.IP.EVAL ---
Past Medical History (Last Updated 11/21/21 @ 19:35 by Davey Hoffman DO) Cerebral aneurysm H/O bilateral oophorectomy History of lumpectomy of right breast Malignant neoplasm of breast (female), unspecified site (06/25/02) S/P coil embolization of cerebral aneurysm Unspecified essential hypertension (06/25/02) Surgical History (Last Updated 11/21/21 @ 19:35 by Davey Hoffman DO) H/O bilateral oophorectomy History of lumpectomy of right breast S/P coil embolization of cerebral aneurysm Occupational Therapy Inpatient Evaluation/Re-Eval M1 PT/OT-IP Prior Functional Status Start: 11/22/21 11:55 Freq: NEEDED Status: Active Protocol: Document 11/22/21 12:20 [facility] (Rec: 11/22/21 12:44 [facility] [id number]) Medical Review Prior Functional Status Medical History Reviewed Yes Communication able to make needs known Mobility and Gait spouse in room and provided info stated that pt is modified independent with all mobilities without AD indoors but pt furniture cruise; uses 1 walking stick for outdoor mobility Activities of Daily Living and IADL's Pt able to do all her ADL's, and assist with IADL needs prior. Prior Functional Level (Other details) pt stated that she had aneurysm in 2004. per EMR pt has h/o aneurysm clippings Social History Household Members spouse Living Arrangements House Number of Floors (Floors) One Floor Number of Stairs To Enter/Railing? no steps to enter Home Environment Standard Height Toilet,Walk in Shower,Tub/Shower Home Equipment Hand Held Shower Additional Social History Comment pt has a walking stick M2 OT-IP Current Condition Start: 11/22/21 12:19 Freq: Status: Active Protocol: Document 11/22/21 12:20 [facility] (Rec: 11/22/21 12:44 [facility] [id number]) Occupational Therapy Current Condition Current Condition Evaluation Date 11/22/21 Treatment Diagnosis CVA vs CN 3 palsy Diagnosis Onset Date 11/21/21 M3 OT- IP Subjective and Pain Start: 11/22/21 12:19 Freq: Status: Active Protocol: Document 11/22/21 12:20 [facility] (Rec: 11/22/21 12:44 [facility] [id number]) OT- Subjective Occupational Therapy Visit Type Type Initial Evaluation Visit Start Time 09:12 Visit Stop Time 10:15 Total Visit Minutes 63 Occupational Therapy Visit Comments Patient Comments Pt agreed to get up for OT eval and pt's in the room. Patient/Caregiver Goals TO go home OT Pain Assessment Pain When Pain Assessed At Rest Pain Present Pain Present Denied Pain M4 OT- IP ADL's Start: 11/22/21 12:19 Freq: Status: Active Protocol: Document 11/22/21 12:20 [facility] (Rec: 11/22/21 12:44 [facility] [id number]) OT [id number] Comments OT Self-Feeding Comments not at meal time OT ADL-Grooming General Evaluation Grooming Ability Standby Assistance Areas Needing Assistance Retrieving/Set-up of Grooming Items Comments OT Grooming Comments Pt having double vision and needing assist for set-up. OT ADL-Oral Care General Eval Oral Care Ability Independent OT ADL-Dressing General Eval Lower Body Dressing Ability Standby Assistance Comments OT Dressing Comments Pt able to patricia/doff her socks while seated. OT ADL-Toileting Comments OT Toileting Comments Pt not having to use the toilet. Pt is very unsteady on her feet and aware to be there to provide assist at all times due to decrease balance and double vision. OT ADL-Bathing Comments OT Bathing Comments Pt would benefit from a shower chair for safety and to assist. M5 OT- IP IADL's Start: 11/22/21 12:19 Freq: Status: Active Protocol: Document 11/22/21 12:20 [facility] (Rec: 11/22/21 12:44 [facility] [id number]) OT-Instrumental Activities of Daily Living Home Safety Awareness Awareness of Need for Assistance at Home Good Awareness Ability to Problem Solve Emergency Able to Problem Solve Situations Medication Management Medication Management Comments Due to her blurred vision would be beneficial for her to assist. Money Management Money Management Comments Due to her blurred vision would be beneficial for her to assist. Meal Preparation Meal Preparation Comments Due to her blurred vision and decreased dynamic balance would be beneficial for her to assist. Pulp Mill Team Leader Pulp Mill Team Leader Comments Due to her blurred vision and dynamic balance pt would be beneficial for her to assist. M6 OT- IP Functional Cognition Start: 11/22/21 12:19 Freq: Status: Active Protocol: Document 11/22/21 12:20 [facility] (Rec: 11/22/21 12:44 [facility] [id number]) Cognitive Factors Limiting Selfcare Function Cognitive Ability Level of Alertness Alert Patient Orientation Name,Age,Birthday,Month,Date, Year,Day of Week,Place, Situation Attention Span Ability Capable of Focused Attention, Capable of Sustained Attention Ability to Follow Commands Able to Follow One Step Commands Cognitive Comments Cognitive Assessment Comments Per pt has difficulty with numbers and therefore had trouble to follow [place] making Part B and needing MAX vc to complete. Able to place tape on the right lens to try to assist pt to have her eye look more medially through her reading glasses. OT- Vision and Hearing OT- Hearing Assessment OT- Hearing Assessment WFL OT- Vision Assessment Visual Acuity Glasses For Reading Visual Attentiveness Impaired Occular Pursuits Impaired Horizontal Visual Convergence Impaired Visual Martinez Impaired Diplopia Present Vision Assessment Comments Pt seeing double as right eye tends to gaze upward and outward and having trouble coordinating with left eye while seeing. Able to place tape on the right lens of her reading glasses and pt states appears to help so that she is not seeing double. Also trial of tape of clear glasses and noted was safer while walking. Suggested pt to see an neuro - working second hand. M7 OT- IP Mobility and Balance Start: 11/22/21 12:19 Freq: Status: Active Protocol: Document 11/22/21 12:20 [facility] (Rec: 11/22/21 12:44 [facility] [id number]) OT- Bed Mobility Assessment Supine to Sit Supine to Sit Assist Independent Sit to Supine Sit to Supine Assist Independent OT-Transfer Assessment Sit to and From Stand Sit to and from Stand Contact Guard Assistance Transfers Transfer Ability Contact Guard Assistance, Minimal Assistance Technique Transfer Destination Bed,Chair Transfer Technique Stand Step Pivot Devices Transfer Assistive Devices None,Gait Belt,Front Wheeled Walker Comments Mobility Comments Pt MARIALUISA without a device and CGA with FWW, however did much better when glasses were taped to help prevent from pt seeing double. OT- Balance Assessment Sitting Balance and Reactions Static Sitting Balance Ability Normal Dynamic Sitting Balance Ability Good Standing Balance and Reactions Static Standing Balance Ability Fair Dynamic Standing Balance Ability Poor M8 OT- IP Objective Assessments Start: 11/22/21 12:19 Freq: Status: Active Protocol: Document 11/22/21 12:20 [facility] (Rec: 11/22/21 12:44 [facility] [id number]) OT Gross Range of Motion Upper Extremity Range of Motion Assessment Within Functional Limits OT Strength Comments Strength Comments BUE 4/5 OT- Coordination Assessment Upper Extremity Finger to Nose Test Left UE Impaired Comments Coordination Comments Left hand slightly off for finger to nose. Noted slight tremor with her right hand and head. OT-Muscle Tone Assessment Muscle Tone WNL Yes OT Sensation Assessment Comments Summary Comments Intact, pt able to patricia/doff her glass with her eyes closes . M9 OT- IP Assessment and Plan Start: 11/22/21 12:19 Freq: Status: Active Protocol: Document 11/22/21 12:20 [facility] (Rec: 11/22/21 12:44 [facility] [id number]) OT Summary Assessment and Plan Potential Rehabilitation Potential Excellent Analytic Complexity at Evaluation Moderate Summary OT Impairments Balance,Functional Cognition, Functional Mobility,Grooming, Dressing,Toileting,Bathing, Toilet Transfers,Shower Transfers,Activity Tolerance Progress Towards Goals Progressing Toward Goals Assessment Summary Pt MOD complexity and main barriers are decreased dynamic balance and having new onset of blurred vision. Pt has a supportive who will be home to assist with her needs. Suggested pt to see a neuro-opthamologist for her eyes. Able to trial tape on her reading glasses to help pt from not seeing double. Pt would benefit from outpt therapy. Goals Self-Feeding Goal Independent Grooming Goal Independent Dressing Goal Independent Toileting Goal Independent Bathing Goal Independent Toilet Transfer Goal Independent Shower Transfer Goal Independent Days to Meet Goals 10 Frequency of Treatment Frequency Of Treatment Once a Day Treatment Plan OT Treatment Plan ADL Training,Functional Cognition Training,Functional Mobility,Vision Retraining, Patient/Family Education, Discharge Planning Other Treatment Recommendations and Next shower if still here Treatment Focus Discharge Recommendations OT Discharge Recommendations Home with 05/05 Assist Available,Outpatient PT Home Equipment Needs shower chair, FWW Transportation Needs at Discharge Private Vehicle
--- NOTE | 2021-11-22 10:17 | PT.IIE ---
Medical History (Last Updated 11/21/21 @ 19:35 by Davey Hoffman DO) Cerebral aneurysm Malignant neoplasm of breast (female), unspecified site (06/25/02) Unspecified essential hypertension (06/25/02) Physical Therapy Inpatient Evaluation/Re-Eval M1 PT/OT-IP Prior Functional Status Start: 11/22/21 11:55 Freq: NEEDED Status: Active Protocol: Document 11/22/21 10:17 AB (Rec: 11/22/21 12:12 AB [id number]) Medical Review Prior Functional Status Medical History Reviewed Yes Communication able to make needs known Mobility and Gait spouse in room and provided info stated that pt is modified independent with all mobilities without AD indoors but pt furniture cruise; uses 1 walking stick for outdoor mobility Prior Functional Level (Other details) pt stated that she had aneurysm in 2004. per EMR pt has h/o aneurysm clippings Social History Household Members spouse Living Arrangements House Number of Floors (Floors) One Floor Number of Stairs To Enter/Railing? no steps to enter Home Environment Standard Height Toilet,Walk in Shower,Tub/Shower Home Equipment Hand Held Shower Additional Social History Comment pt has a walking stick M2 PT-IP Current Condition Start: 11/22/21 11:55 Freq: NEEDED Status: Active Protocol: Document 11/22/21 10:17 AB (Rec: 11/22/21 12:12 AB [email or web address]) Physical Therapy Current Condition Current Condition Evaluation Date 11/22/21 Treatment Diagnosis CN III palsy vs CVA; difficulty in walking Onset Date 11/21/21 M3 PT-IP Subjective Start: 11/22/21 11:55 Freq: NEEDED Status: Active Protocol: Document 11/22/21 10:17 AB (Rec: 11/22/21 12:12 AB [email or web address]) Subjective Physical Therapy Visit Type Type Initial Evaluation Visit Start Time 10:17 Visit Stop Time 11:15 Total Visit Minutes 58 Number of PARKING GARAGE MANAGER Visits 0 Physical Therapy Visit Comments Patient Comments agreed to do PT Therapy Pain Assessment Pain Present Pain Present Denied Pain M4 PT-IP Mobility and Gait Start: 11/22/21 11:55 Freq: NEEDED Status: Active Protocol: Document 11/22/21 10:17 AB (Rec: 11/22/21 12:12 AB [email or web address]) PT-Bed Mobility Assessment Supine to Sit Supine to Sit Standby Assistance Sit to Supine Sit to Supine Standby Assistance PT-Transfer Assessment Sit to and From Stand Sit to and from Stand Contact Guard Assistance,1 Person Assistance,Use of Upper Extremities Equipment Transfer Assistive Device None,Gait Belt Orthotic/Prosthetic Devices or Brace: No Comments Mobility Comments pt with h/o aneurysm with clippings and has memory issues since then per pt. spouse in room and provided more infor regarding pt's mobility PLOF and home set up. BP in supine: 120/44. pt stated that she feels a little lightheaded. completed supine to sit SBA. able to sit on EOB SBA. BP checked: 97/37. pt sat on EOB for 3 more minutes and BP checked again: 131/51. pt completed sit to stand CGA. BP checedk: 108/37. pt tolerated 3 more minutes of standing and BP checked again in standin /41. pt (+) slight tremor on RUE/head/trunk. pt ambulated in room without AD ~ 20 ft min A and cues. pt tends to reach for the table/wall for support. presents with wide based ataxic gait with decrease BLE elevation and step length. educated pt on safety and increase awareness of COB and weight shifting. pt ambulated again in room without AD min A and cues . Assessed ambulation using FWW and completed CGA 20 ft. presents with steadier gait. informed pt and spouse regarding use of FWW for home use. spouse stated that he will buy one for pt and does not want to go through her insurance for it. Pt presents with hesistation to use FWW. Assessed ambulation using SPC since pt usually uses her walking stick for outdoor mobiltiy. pt required CGA to min A using SPC 25 ft and needs cues for proper use. increase assistance of min A for turning. informed pt regarding safety and FWW recommendation and pt agreed. also informed regarding further PT upon d/c. pt and spouse understood. Gait Assessment Gait Gait Assistance Required: Contact Guard Assist,Minimum Assistance,1 Person Assist Distance (Feet) 25 Able to Maintain Weight Bearing Status Yes During Gait Assistive Devices Assistive Device None,Gait Belt,Straight Cane, Front Wheeled Walker Orthotic/Prosthetic Devices or Brace: No Gait Deviations General Gait Pattern Ataxic,Decreased Stride Length ,Decreased Feet Clearance,Step -to Gait,Wide Based Gait Factors Limiting Gait Function Factors Limiting Gait Function Decreased Activity Tolerance, Decreased Strength,Poor Balance,Poor Safety Awareness PT-Balance Assessment Sitting Balance and Reactions Static Sitting Balance Ability Good Dynamic Sitting Balance Ability Good Standing Balance and Reactions Static Standing Balance Ability Fair Dynamic Standing Balance Ability Poor Device Used without AD M5 PT-IP Objective Assessments Start: 11/22/21 11:55 Freq: NEEDED Status: Active Protocol: Document 11/22/21 10:17 AB (Rec: 11/22/21 12:12 AB [id number]) Orientation Orientation/Cognition Level of Alertness Alert Orientation Name Safety Awareness Decreased Safety Awareness Memory Description Short Term Impaired Gross Range of Motion Lower Extremity ROM Assessment Within Functional Limits Strength Lower Extremity Strength Assessment Right Impaired Hip 3+/5 Knee 3+/5 Sensation Assessment Sensation Gross Sensation WNL Muscle Tone Muscle Tone WNL Yes M6 PT-IP Treatment Start: 11/22/21 11:55 Freq: NEEDED Status: Active Protocol: Document 11/22/21 10:17 AB (Rec: 11/22/21 12:12 AB [id number]) Physical Therapy Treatment Education Education Provided Safety M7 PT-IP Assessment and Plan Start: 11/22/21 11:55 Freq: NEEDED Status: Active Protocol: Document 11/22/21 10:17 AB (Rec: 11/22/21 12:12 AB [id number]) PT Summary Assessment and Plan Potential Rehabilitation Potential Good Status of Condition at Evaluation Evolving Summary Impairments Pain,ROM,Strength,Balance, Coordination,Sensation,Tone, Cognition,Bed Mobility, Transfers,Gait,Activity Tolerance Assessment Summary pt requiring min A with ambulation without AD and presents with very unsteady gait. Assessed ambulation using SPC and FWW. Recommending use of FWW for mobility for safety. pt and spouse agreed. pt will also benefit from outpt PT. Goals Bed Mobility Goal Independent Transfer Goal Independent,Front Wheeled Walker Gait Goal Independent,Front Wheel Walker Gait Distance 200 Other Goals improve ambulation using SPC/ without AD SBA 200 ft Days to Meet Goals 10 Frequency of Treatment Frequency Of Treatment Once a Day Treatment Plan Physical Therapy Treatment Plan Bed Mobility Training,Transfer Training,Gait Training, Therapeutic Exercise,Balance Retraining,Discharge Planning, Hot or Cold Pack,Neuromuscular Re-ed,Coordination Retraining ,Manual Therapy Recommendations To Nursing Amount of Assist Needed 1 Person Assist Discharge Recommendations PT Discharge Recommendations Home with Assistance, Outpatient PT Transportation Needs at Discharge Private Vehicle
[2021-11-22 11:00] VITALS: BP 133/40; PULSE 67; RESP 17; TEMP 37.1; O2SAT 96
--- NOTE | 2021-11-22 12:04 | PM.DS.1 ---
History of Present Illness History of Present Illness Date Patient Seen: 11/22/21 Time Patient Seen: 12:04 Chief complaint: Needs neurological exam- sent from [place] Narrative: This is a 65-year-old female with a past medical history of left-sided cerebral aneurysm status post coiling approximately 8 years ago, hypertension, PTSD who initially presented to her primary care provider on [place] this morning for new onset of blurry vision this morning, as well as an inability to move her right eye medially. She woke up with this phenomenon this morning with last known normal before she went to sleep. She Denies any recent headache, numbness, tingling. She has noticed some memory issues over the past couple of years as well as some worsening in balance as well over this time but she has been much less active. She also states that she has intentionally lost about 40 lb over the past 2 years. She denies any dark stools, hematemesis, or coffee-ground emesis. She denies any recent fever, chills, slurred speech, or facial droop. In the emergency room, the patient was mildly hypertensive, but the remainder of her vital signs were unremarkable. She had a CT noncontrast of her head which did not show any bleeding and a CT angiogram of her head and neck which did show bilateral carotid stenosis which will require outpatient follow-up, as well as her prior left-sided aneurysm coils but no new aneurysm was able to be identified. Given her prior brain coils, patient is unable to undergo an MRI unless further records can be found according to radiology department. Laboratory evaluation was notable for a mild anemia with a hemoglobin of 9.5, MCV is elevated at 101.8. ESR is just above normal at 28. She had a mild elevation in her creatinine at 1.5, sodium was 131 and potassium was 5.4. The remainder of her chemistries were unremarkable. Troponin was negative. CRP was negative. Urinalysis was contaminated but minimal WBCs were seen. Urine drug screen was negative. COVID-19 testing was negative. Patient was admitted for further management of isolated cranial nerve 3 palsy, likely secondary to acute ischemia. Discharge Providers Provider Date of admission: 11/21/21 15:43 Discharge Date: 11/22/21 Primary care physician: Paxton Ivy MD Consults: 11/21/21 17:16 Consult to Occupational Therapy Evaluate & Treat Comment: Physician Instructions: Evaluate and treat 11/21/21 19:51 Consult to Physical Therapy Evaluate & Treat Comment: Physician Instructions: Evaluate and Treat Discharge provider: Davey Hoffman DO Summary Hospital Course Discharge Diagnosis: 1. CVA, acute, present on admission 2. history of L cerebral aneurysm s/p coiling 3. HTN, chronic 4.? PTSD Hospital Course: This is a 65-year-old female with a past medical history of left-sided cerebral aneurysm status post coiling approximately 8 years ago, hypertension, PTSD admitted for an isolated CN 3 palsy likely due to acute CVA. Records were requested from [facility] but did not arrive and MRI was unable to be performed. PT and OT consultations were obtained. She was started on aspirin and her home statin was increased for probable ischemic CVA. I recommend that she follow up with PCP or her neurosurgeon in [place] in the next few weeks to determine if MRI imaging is obtainable elsewhere or needed. The patient did have a CT without contrast and CT angiogram so new aneurysm is thought to be highly unlikely. Given pupilar sparing on exam this also likely indicates ischemic sources, though other etiologies cannot be entirely excluded. No changes were necessary to her home BP medications as her BP was controlled after admission. She was discharged home after no further progression of neurological symptoms was seen during observation. Exam Vital Signs (past 8 hours): - 11/22/21 05:00 11/22/21 07:30 11/22/21 11:00 Temperature 98.4 F 98.7 F 98.7 F Pulse Rate 62 65 67 Respiratory Rate 16 17 Blood Pressure 111/43 L 134/52 L 133/40 L Pulse Oximetry 96 98 96 Oxygen Delivery Method Room Air Oxygen Flow Rate 0 Narrative Exam Narrative: GENERAL APPEARANCE: Well developed, well nourished, in no acute distress. SKIN: Inspection of the skin reveals no rashes, ulcerations or petechiae. HEENT:? Normocephalic atraumatic, extraocular muscles are intact, oropharynx is clear and mucous membranes are moist, neck is supple without adenopathy NECK: Supple and symmetric. There was no thyroid enlargement, and no tenderness, or masses were felt. CHEST: Normal AP diameter and normal contour without any kyphoscoliosis. LUNGS: Auscultation of the lungs revealed no wheezes, rhonchi, or rales. CARDIOVASCULAR: There was a regular rate and rhythm without any murmurs, gallops, rubs. Peripheral pulses were 2+ and symmetric. ABDOMEN: Soft and nontender with normal bowel sounds. No ascites was noted. MUSCULOSKELETAL: There was no tenderness or effusions noted. Muscle strength and tone were normal. EXTREMITIES: No cyanosis, clubbing or edema. NEUROLOGIC: Alert and oriented x 3. Normal affect. Isolated CN 3 palsy on the R, PERRLA (pupilar sparing), normal strength and sensation bilateral extremities. Possible slight ataxia but heel to chaparro equal bilaterally. Gait not assessed. Objective Labs Result Diagrams: 11/22/21 05:27 11/22/21 05:27 Labs: Laboratory Results - last 24 hr 11/21/21 11/21/21 11/21/21 14:30 14:30 14:40 WBC RBC Hgb Hct MCV MCH MCHC RDW Plt Count Neut % (Auto) Lymph % (Auto) [place] % (Auto) Eos % (Auto) Baso % (Auto) Neut # (Auto) Lymph # (Auto) [place] # (Auto) Eos # (Auto) Baso # (Auto) ESR Sodium Potassium Chloride Carbon Dioxide BUN Creatinine Estimated GFR BUN/Creatinine Ratio Glucose Hemoglobin A1c Calcium Total Bilirubin AST ALT Alkaline Phosphatase Total Creatine Kinase CK-MB (CK-2) CK-MB (CK-2) Rel Index Troponin I C-Reactive Protein Total Protein Albumin Globulin Albumin/Globulin Ratio TSH Urine RBC None seen Urine WBC 1-5/hpf Ur Squamous Epith Cells >30 /hpf H Urine Bacteria Many (>30) H Ur Culture Indicated? Cult not indicated U Opiates 300ng/mL cut Negative Ur Oxycodone Screen Negative Urine Methadone Screen Negative Ur Barbiturates Screen Negative U Tricyclic Antidepress Negative Ur Phencyclidine Scrn Negative Ur Amphetamines Screen Negative U Methamphetamines Scrn Negative Ur MDMA Scrn (Ecstasy) Negative U Benzodiazepines Scrn Negative Urine Cocaine Screen Negative U Marijuana (THC) Screen Negative SARS-CoV-2 (PCR) Negative 11/21/21 11/21/21 11/21/21 15:15 15:15 15:15 WBC 4.9 RBC 2.73 L Hgb 9.5 L Hct 27.8 L MCV 101.8 H MCH 34.7 H MCHC 34.1 RDW 12.3 Plt Count 181 Neut % (Auto) 78.0 H Lymph % (Auto) 10.9 L [place] % (Auto) 8.7 Eos % (Auto) 1.9 L Baso % (Auto) 0.5 Neut # (Auto) 3800 Lymph # (Auto) 500 L [place] # (Auto) 400 Eos # (Auto) 100 Baso # (Auto) 0 ESR 28 H Sodium 131 L Potassium 5.4 H Chloride 98 Carbon Dioxide 24 BUN 34 H Creatinine 1.50 H Estimated GFR 34.6 L BUN/Creatinine Ratio 22.7 H Glucose 113 H Hemoglobin A1c Calcium 9.9 Total Bilirubin 0.4 AST 35 ALT 17 Alkaline Phosphatase 102 Total Creatine Kinase 62 CK-MB (CK-2) TNP CK-MB (CK-2) Rel Index TNP Troponin I < 0.012 C-Reactive Protein Total Protein 7.7 Albumin 4.6 Globulin 3.1 Albumin/Globulin Ratio 1.5 TSH Urine RBC Urine WBC Ur Squamous Epith Cells Urine Bacteria Ur Culture Indicated? U Opiates 300ng/mL cut Ur Oxycodone Screen Urine Methadone Screen Ur Barbiturates Screen U Tricyclic Antidepress Ur Phencyclidine Scrn Ur Amphetamines Screen U Methamphetamines Scrn Ur MDMA Scrn (Ecstasy) U Benzodiazepines Scrn Urine Cocaine Screen U Marijuana (THC) Screen SARS-CoV-2 (PCR) 11/21/21 11/22/21 11/22/21 15:15 05:27 05:27 WBC 3.7 L RBC 2.58 L Hgb 8.9 L Hct 26.5 L MCV 102.6 H MCH 34.5 H MCHC 33.6 RDW 12.6 Plt Count 163 Neut % (Auto) 54.6 D Lymph % (Auto) 25.7 [place] % (Auto) 12.3 Eos % (Auto) 6.5 H Baso % (Auto) 0.9 Neut # (Auto) 2000 Lymph # (Auto) 1000 L [place] # (Auto) 500 Eos # (Auto) 200 Baso # (Auto) 0 ESR Sodium 131 L Potassium 4.3 Chloride 101 Carbon Dioxide 25 BUN 29 H Creatinine 1.24 H Estimated GFR 43.1 L BUN/Creatinine Ratio 23.4 H Glucose 99 Hemoglobin A1c Calcium 9.8 Total Bilirubin AST ALT Alkaline Phosphatase Total Creatine Kinase CK-MB (CK-2) CK-MB (CK-2) Rel Index Troponin I C-Reactive Protein < 0.5 Total Protein Albumin Globulin Albumin/Globulin Ratio TSH Urine RBC Urine WBC Ur Squamous Epith Cells Urine Bacteria Ur Culture Indicated? U Opiates 300ng/mL cut Ur Oxycodone Screen Urine Methadone Screen Ur Barbiturates Screen U Tricyclic Antidepress Ur Phencyclidine Scrn Ur Amphetamines Screen U Methamphetamines Scrn Ur MDMA Scrn (Ecstasy) U Benzodiazepines Scrn Urine Cocaine Screen U Marijuana (THC) Screen SARS-CoV-2 (PCR) 11/22/21 11/22/21 05:27 05:27 WBC RBC Hgb Hct MCV MCH MCHC RDW Plt Count Neut % (Auto) Lymph % (Auto) [place] % (Auto) Eos % (Auto) Baso % (Auto) Neut # (Auto) Lymph # (Auto) [place] # (Auto) Eos # (Auto) Baso # (Auto) ESR Sodium Potassium Chloride Carbon Dioxide BUN Creatinine Estimated GFR BUN/Creatinine Ratio Glucose Hemoglobin A1c 5.2 Calcium Total Bilirubin AST ALT Alkaline Phosphatase Total Creatine Kinase CK-MB (CK-2) CK-MB (CK-2) Rel Index Troponin I C-Reactive Protein Total Protein Albumin Globulin Albumin/Globulin Ratio TSH 3.01 Urine RBC Urine WBC Ur Squamous Epith Cells Urine Bacteria Ur Culture Indicated? U Opiates 300ng/mL cut Ur Oxycodone Screen Urine Methadone Screen Ur Barbiturates Screen U Tricyclic Antidepress Ur Phencyclidine Scrn Ur Amphetamines Screen U Methamphetamines Scrn Ur MDMA Scrn (Ecstasy) U Benzodiazepines Scrn Urine Cocaine Screen U Marijuana (THC) Screen SARS-CoV-2 (PCR) [facility] Medical History (Updated 11/21/21 @ 19:35 by Davey Hoffman DO) Cerebral aneurysm Malignant neoplasm of breast (female), unspecified site (06/25/02) Unspecified essential hypertension (06/25/02) Surgical History (Updated 11/21/21 @ 19:35 by Davey Hoffman DO) H/O bilateral oophorectomy History of lumpectomy of right breast S/P coil embolization of cerebral aneurysm Family History (Updated 11/21/21 @ 19:03 by Davey Hoffman DO) Brother Cancer Mother Cerebral aneurysm Social History household members: spouse Smoking Status: Never smoker alcohol intake: current Discharge Plan Discharge Plan Patient Disposition: Home Provider Discharge Comment: You were admitted to the hospital with double vision due to a probable stroke causing a 3rd cranial nerve deficit. We were unable to do MRI due to your prior brain coils. I would recommend follow up with your PCP to see about obtaining an MRI as an outpatient if able given your coils for further evaluation. For now continue aspirin and statin. Discharge orders & Medications Prescriptions: New atorvastatin 80 mg tablet 80 mg PO BEDTIME 30 Days Qty: 30 0RF aspirin 81 mg Tablet,Delayed Release (Dr/Ec) 81 mg PO DAILY 30 Days Qty: 30 0RF Continued ibuprofen 600 MG tablet 600 mg PO Q6HP PRNQty: 60 0RF losartan [Cozaar] 50 MG tablet 50 mg PO Q DAY Qty: 90 1RF sertraline 100 MG tablet 100 mg PO QDAY Qty: 90 1RF propranolol 10 MG tablet 10 mg PO BID Qty: 180 1RF omeprazole 20 MG tablet,delayed release (DR/EC) 20 mg PO QDAY Qty: 90 1RF alprazolam 0.25 MG tablet 0.25 mg PO QDAYP PRNQty: 28 0RF spironolactone 25 MG tablet 0 PO SEE INSTRUCTIONS Qty: 120 0RF Discontinued atorvastatin [Lipitor] 40 MG tablet 40 mg PO HS Qty: 90 0RF Follow up/Referrals: Paxton Ivy MD [Primary Care Provider] - Diet/Activity/Treatments Diet: Diet as Tolerated Activity: As tolerated Visit Report/Discharge Packet Instructions: Ischemic Stroke, Coronary Artery Disease, DI for Stroke-Ischemic Discharge Data Primary Care Provider: Paxton Ivy Attending Provider: Davey Hoffman
[2021-11-22 13:42] VITALS: O2SAT 99
== END 2021-11-22 14:15 | disposition home or self-care (01) ==
LOC: ED 14:03 → AC 15:44
PROVIDERS: Admitting Provider Internal Medicine; Emergency Provider Emergency Medicine; Family Provider Family Medicine; PCP Family Medicine; Referring Provider Emergency Medicine; Visit Provider Internal Medicine
DX: H53.2 Diplopia (principal); R29.702 NIHSS score 2; I10 Essential (primary) hypertension; E78.5 Hyperlipidemia, unspecified; D64.9 Anemia, unspecified; F43.10 Post-traumatic stress disorder, unspecified; Z20.822 Contact with and (suspected) exposure to COVID-19
CPT/HCPCS: 36415; 70450; 70496; 70498; 80048; 80053; 80305; 81003; 81015; 82550; 82962; 83036; 84443; 84484; 85025; 85651; 86140; 87635; 93005; 93010; 94760; 96360; 96361; 96372; 97116; 97162; 97166; 97530; 99284; 99285; C9803; G0378; J1650; Q9967

== ENCOUNTER → 2021-12-25 12:46 | Outpatient (CLI) | payer MEDICARE, SELFPAY ==
[2021-11-21 16:54] VITALS: BMI 23.3
--- NOTE | 2021-12-25 | DI.CT.S_ITS ---
PROCEDURE: CT FACIAL BONES WO CON INDICATIONS: Asymptomatic menopausal state;Osteonecrosis of jaw TECHNIQUE: Noncontrast 2.5 mm thick axial images acquired from the mandible through the frontal sinuses, with coronal and sagittal reformatting. For radiation dose reduction, the following was used: automated exposure control, adjustment of mA and/or kV according to patient size. COMPARISON: [facility], CT, CT HEAD/BRAIN WO CON, 11/21/2021, 14:33. FINDINGS: Image quality: Excellent. Bones and teeth: In this patient with this given history, scrutiny is given to osteonecrosis of the mandible. No findings osteonecrosis of the mandible can be seen. One of the implant screws along the anterior maxilla on the left appears somewhat anteriorly located, which is best seen on series 5, image 46. No abnormal lucency can be seen surrounding other screws or tooth roots. Orbital swann are intact. Sinus swann show no fracture or deformity. Nasal bones and septum are intact. Zygomatic arches are intact. Pterygoid plates are intact. Visualized portions of the skull base and auditory canals are intact. At least moderate cervical spine degenerative change can be seen. Sinuses: Paranasal sinuses are aerated, without fluid levels, mucosal thickening, or mucoceles. Mastoid air cells are aerated. Soft tissues: No edema, masses, or fluid collections. No enlarged lymph nodes. No soft tissue lacerations or debris. Coils are seen along the left anterior communicating artery region. Vascular: Visualized vascular structures appear normal in the absence of contrast. Bony vascular foramina and canals are intact. IMPRESSION: No significant abnormality can be seen of the mandible. Incidental note is made of: Intracranial coils Cervical spine degenerative change Dictated by: Eduardo Sue M.D. on 12/25/2021 at 12:40 Approved by: Eduardo Sue M.D. on 12/25/2021 at 12:44
== END ==
PROVIDERS: Family Provider Family Medicine; PCP Family Medicine; Referring Provider Family Medicine; Visit Provider Family Medicine
DX: M87.9 Osteonecrosis, unspecified (principal); M85.851 Other specified disorders of bone density and structure, right thigh; M85.852 Other specified disorders of bone density and structure, left thigh; Z78.0 Asymptomatic menopausal state
CPT/HCPCS: 70486; 77080

== ENCOUNTER → 2022-04-23 08:36 | Outpatient (CLI) | payer MEDICARE, SELFPAY ==
[2021-11-21 16:54] VITALS: BMI 23.3
--- NOTE | 2022-04-23 09:07 | DI.ECHO.S_ITS ---
Interpretation Summary The patient was in sinus rhythm with heart rates between 60-65 bpm during the exam. Hypertensive during examination unless diabetic. The left ventricle is normal in size and wall thickness. The ejection fraction is estimated to be 60-65%. The left atrium is moderately dilated. There is mild mitral regurgitation. There is mild tricuspid regurgitation. The right ventricular systolic pressure is estimated to be at least 31 mmHg based on an estimated right atrial pressure of 3 mm Hg. No prior study for comparison. Procedure: A two-dimensional transthoracic echocardiogram with color flow and Doppler was performed. The study quality was technically adequate. A saline contrast injection was performed to assess for cardiac shunting. There is no prior echocardiogram noted for this patient. The patient was in sinus rhythm with heart rates between 60-65 bpm during the exam. Hypertensive during examination unless diabetic. Left Ventricle: The left ventricle is normal in size and wall thickness. The ejection fraction is estimated to be 60-65%. Diastolic parameters suggest probable normal left ventricular diastolic function and normal filling pressures. Right Ventricle: The right ventricle is normal in size and function. Atria: The left atrium is moderately dilated. Right atrial size is normal. There is no Doppler evidence for an interatrial shunt. Injection of contrast documented no interatrial shunt. Mitral Valve: The mitral valve is normal in structure and function. There is mild mitral regurgitation. Aortic Valve: The aortic valve is not well visualized. The aortic valve opens well. There is no aortic valve stenosis. No aortic regurgitation is present. Tricuspid Valve: The tricuspid valve leaflets are thin and pliable. There is mild tricuspid regurgitation. The right ventricular systolic pressure is estimated to be at least 31 mmHg based on an estimated right atrial pressure of 3 mm Hg. Pulmonic Valve: The pulmonic valve is not well visualized. There is no pulmonic valvular regurgitation. Great Vessels: The aortic root is normal size. The ascending aorta could not be visualized. The IVC is of normal diameter and collapses greater than 50% with a sniff. This suggests a low right atrial pressure of 3 mm Hg. Pericardium/ Pleura There is no pericardial effusion. There is no pleural effusion. MMode/2D Measurements & Calculations LVIDd: 4.9 cm LVOT diam: 2.0 cm LVIDs: 3.3 cm Ao root diam: 3.0 cm FS: 33.1 % EPSS: 0.91 cm IVSd: 0.83 cm LVPWd: 0.66 cm LV barros. diameter/BSA (cm/m^2): 2.8 LV sys. diameter/BSA (cm/m^2): 1.9 LA A2 area: 24.3 cm2 RA long axis: 4.9 cm LA A4 area: 21.3 cm2 RA area: 17.0 cm2 LA length (vol): 5.9 cm RA vol: 49.8 ml LA vol: 74.4 ml RA : 28.4 ml/m2 LA vol index: 42.4 ml/m2 IVC diam: 1.3 cm RVD1 (basal): 3.4 cm RVD2 (mid): 2.9 cm TAPSE: 2.7 cm Doppler Measurements & Calculations Ao V2 max: 163.2 cm/sec LVOT Max Shade: 109.1 cm/sec Ao V2 mean: 107.0 cm/sec LV V1 max P.8 mmHg Ao max P.7 mmHg LV V1 VTI: 26.5 cm Ao mean P.2 mmHg ENRIQUETA(I,D): 2.4 cm2 Ao V2 VTI: 35.6 cm ENRIQUETA(V,D): 2.2 cm2 sev ratio: 0.74 ENRIQUETA indexed to BSA (cm^2/m^2): 1.4 MV E max shade: 91.5 cm/sec TR max shade: 264.2 cm/sec MV A max shade: 32.5 cm/sec TR max P.9 mmHg MV E/A: 2.8 PA V2 max: 95.1 cm/sec Med Peak E' Shade: 9.8 cm/sec PA V2 mean: 68.5 cm/sec E/E' med: 9.3 PA mean P.1 mmHg Lat Peak E' Shade: 11.1 cm/sec PA Accel Time: 0.09 sec E/E' lat: 8.3 E/e' average: 8.8 MV dec time: 0.21 sec SV(LVOT): 85.4 ml Reading Physician:FLACA
== END ==
PROVIDERS: Family Provider Family Medicine; PCP Nurse Practitioner Family; Referring Provider Nurse Practitioner Family; Visit Provider Nurse Practitioner Family
DX: I10 Essential (primary) hypertension (principal); Z86.73 Personal history of transient ischemic attack (TIA), and cerebral infarction without residual deficits; I08.2 Rheumatic disorders of both aortic and tricuspid valves
CPT/HCPCS: 93306

== ENCOUNTER → 2022-11-08 10:02 | Outpatient (CLI) | payer MEDICARE, SELFPAY ==
[2021-11-21 16:54] VITALS: BMI 23.3
--- NOTE | 2022-11-08 | DI.MG.S_ITS ---
BILATERAL DIGITAL SCREENING MAMMOGRAM 3D/2D WITH CAD: 11/08/2022 CLINICAL: Routine screening. Personal history of right breast cancer. Comparison is made to exams dated: 09/24/2021 mammogram - [facility], 11/04/2018 mammogram - [facility], and 09/17/2016 mammogram - [facility]. There are scattered areas of fibroglandular density in both breasts (category b / 25%-50% glandular tissue). Current study was also evaluated with a Computer Aided Detection (CAD) system. There are benign calcifications in both breasts. There also are benign post operative findings in the right breast. No significant masses, calcifications, or other findings are seen in either breast. There has been no significant interval change. IMPRESSION: BENIGN There is no mammographic evidence of malignancy. A 1 year screening mammogram is recommended. This exam was interpreted at Station ID: [id number]. NOTE: For mammograms, a report in lay terms will be sent to the patient. Approximately 15% of breast malignancies will not be visualized mammographically. In the management of a palpable breast mass, a negative mammogram must not discourage biopsy of a clinically suspicious lesion. Electronically Signed By: Chinedu norman/melissa:11/08/2022 13:54:42 letter sent: Normal Exam ACR BI-RADS Category 2: Benign Finding(s) 3342F
== END ==
PROVIDERS: Family Provider Family Medicine; PCP Nurse Practitioner Family; Referring Provider Nurse Practitioner Family; Visit Provider Nurse Practitioner Family
DX: Z12.31 Encounter for screening mammogram for malignant neoplasm of breast (principal); Z85.3 Personal history of malignant neoplasm of breast
CPT/HCPCS: 77063; 77067

== ENCOUNTER 2023-09-12 17:58 | Emergency (ER) | payer MEDICARE, SELFPAY ==
[2021-11-21 16:54] VITALS: BMI 23.3
[2023-09-12 18:02] VITALS: BP 153/67; PULSE 72; RESP 18; TEMP 36.6; O2SAT 99; BMI 24.5
--- NOTE | 2023-09-12 18:13 | DI.CT.S_ITS ---
PROCEDURE: CT FACIAL BONES WO CON INDICATIONS: fall on thinners, + facial trauma TECHNIQUE: Noncontrast 2.5 mm thick axial images acquired from the mandible through the frontal sinuses, with coronal and sagittal reformatting. For radiation dose reduction, the following was used: automated exposure control, adjustment of mA and/or kV according to patient size. COMPARISON: [facility], CT, CT FACIAL BONES WO CON, 12/25/2021, 13:21. FINDINGS: Image quality: Excellent. Bones and teeth: Orbital swann are intact. Sinus swann show no fracture or deformity. Nasal bones and septum are intact. Visualized portions of the mandible demonstrate no fractures or subluxation. Zygomatic arches are intact. Pterygoid plates are intact. Visualized portions of the skull base and auditory canals are intact. Sinuses: Paranasal sinuses are aerated, without fluid levels, mucosal thickening, or mucoceles. Mastoid air cells are aerated. Soft tissues: No edema, masses, or fluid collections. No enlarged lymph nodes. No soft tissue lacerations or debris. Vascular: Visualized vascular structures appear normal in the absence of contrast. Bony vascular foramina and canals are intact. IMPRESSION: No displaced facial bone fracture or mandibular fracture. Dictated by: Ace Gamino M.D. on 09/12/2023 at 18:52 Approved by: Ace Gamino M.D. on 09/12/2023 at 18:54
--- NOTE | 2023-09-12 18:13 | DI.CT.S_ITS ---
PROCEDURE: CT HEAD/BRAIN WO CON INDICATIONS: fall on thinners, + facial trauma TECHNIQUE: Noncontrast 4.5 mm thick angled axial sections acquired from the foramen magnum to the vertex, with coronal and sagittal reformats. For radiation dose reduction, the following was used: automated exposure control, adjustment of mA and/or kV according to patient size. COMPARISON: [facility], CT, CT HEAD/BRAIN WO CON, 11/21/2021, 14:33. FINDINGS: Image quality: Excellent. CSF spaces: Basal cisterns are patent. No extra-axial fluid collections. The ventricles are symmetric in size and shape. Remote cerebral aneurysm coiling, likely the anterior communicating artery on the left. Brain: No intracranial bleeds or masses. There is cerebral volume loss for age, with resultant ventricular and sulcal prominence. There are moderate periventricular and deep white matter chronic small vessel ischemic changes. There is intracranial internal carotid artery atherosclerosis. Skull and face: Subgaleal hematoma, right frontal region. Calvarium and visualized facial bones appear intact, without suspicious lesions. Sinuses: Visualized sinuses and mastoids are clear. IMPRESSION: 1. No acute intracranial pathology. 2. Age-related volume loss and moderate small vessel ischemic change. 3. Remote aneurysm coiling. 4. Subgaleal hematoma. Dictated by: Ace Gamino M.D. on 09/12/2023 at 18:50 Approved by: Ace Gamino M.D. on 09/12/2023 at 18:52
--- NOTE | 2023-09-12 18:13 | DI.RAD.S_ITS ---
PROCEDURE: XR CHEST 1V INDICATIONS: chest pain TECHNIQUE: One view of the chest was acquired. COMPARISON: [facility], CHEST 2 VIEW, 03/07/2010, 13:23. FINDINGS: Surgical changes and devices: Right lumpectomy and right axillary node resection Lungs and pleura: Lungs are clear. No pleural effusions or pneumothorax. Mediastinum: Mediastinal contours appear normal. Heart size is normal. Bones and chest wall: No suspicious bony lesions. Overlying soft tissues appear unremarkable. IMPRESSION: No evidence acute pulmonary process. Dictated by: Ace Gamino M.D. on 09/12/2023 at 18:55 Approved by: Ace Gamino M.D. on 09/12/2023 at 18:56
--- NOTE | 2023-09-12 18:13 | DI.CT.S_ITS ---
PROCEDURE: CT CERVICAL SPINE WO CON INDICATIONS: fall on thinners, + facial trauma TECHNIQUE: Noncontrast 3 mm thick sections acquired from the skull base to the T4 level. Sagittal and coronal reformats were then constructed. For radiation dose reduction, the following was used: automated exposure control, adjustment of mA and/or kV according to patient size. COMPARISON: None. FINDINGS: Image quality: Excellent. Bones: No fractures or dislocations. Visualized superior ribs are intact. Severe cervical spondylitic change. Multilevel disc height loss and uncovertebral joint hypertrophy. Multilevel facet arthropathy. Soft tissues: Prevertebral soft tissues are normal in thickness. No paravertebral hematomas. No apical pneumothoraces. IMPRESSION: No acute cervical fracture or dislocation. Cervical spondylosis. Dictated by: Ace Gamino M.D. on 09/12/2023 at 18:54 Approved by: Ace Gamino M.D. on 09/12/2023 at 18:55
--- NOTE | 2023-09-12 18:21 | ED_ITS ---
HPI - Fall General Chief Complaint: Fall Stated Complaint: GLF, Face plant. Blood thinners, Time Seen by Provider: 09/12/23 18:03 Source: patient and family Mode of arrival: Ambulatory Limitations: no limitations History of Present Illness HPI Narrative: 67-year-old female with prior history of stroke on Eliquis and aspirin daily as well as prior coiling for aneurysm. Patient states on Friday, 4 days ago she stood up got lightheaded woke up on the floor. Her states he was present she was out for just a 2nd or 2 and then regained consciousness. They state she had a hematoma on her upper forehead which over the last several days has continued to move down words over her cheek and below her eye. They states there was no bruising of her facial region a accept for the upper forehead before. Patient denies any headache, she states she is some aches but no neck or back pain. No chest pain, chronic shortness of breath but no new changes. No cough cold or congestion. She states she gets nauseated frequently secondary taking her morning medications. She states she is chronic diarrhea, no black or bloody stools. No abdominal back or flank pain. She denies any numbness, tingling or weakness. Patient states because the bruising was continuing to spread they came to the emergency department to be evaluated. Patient has not had any more episodes but they note that she is on several medications that tend to make her dizzy. She has had prior coiling of her aneurysm but no other surgeries. Denies any drug allergies. No tobacco, 2 or 3 alcoholic drinks nightly, no illicit. They live on [address]. She is currently without a primary care physician. Related Data Previous Rx's Medication Instructions Recorded ibuprofen 600 mg tablet 600 mg PO Q6HP PRN #60 tabs 12/17/16 losartan 50 mg tablet (Cozaar) 50 mg PO Q DAY #90 tabs 12/23/16 sertraline 100 mg tablet 100 mg PO QDAY #90 tabs 02/11/17 propranolol 10 mg tablet 10 mg PO BID #180 tabs 02/26/17 omeprazole 20 mg tablet,delayed 20 mg PO QDAY #90 tabs 03/19/17 release alprazolam 0.25 mg tablet 0.25 mg PO QDAYP PRN #28 tabs 06/26/17 spironolactone 25 mg tablet 0 PO SEE INSTRUCTIONS #120 tabs 06/20/17 Allergies Allergy/AdvReac Type Severity Reaction Status Date / Time meperidine [MEPERIDINE] Allergy Mild RASH Verified 09/12/23 18:02 lisinopril [LISINOPRIL] AdvReac Mild ough Verified 09/12/23 18:02 Review of Systems Review of Systems ROS Unobtainable: All systems reviewed & are unremarkable except as noted in HPI and below Patient History Medical History Cerebral aneurysm Unspecified essential hypertension (06/25/02) Malignant neoplasm of breast (female), unspecified site (06/25/02) Surgical History H/O bilateral oophorectomy History of lumpectomy of right breast S/P coil embolization of cerebral aneurysm Family History Brother Cancer Mother Cerebral aneurysm Social History household members: spouse Smoking Status: Never smoker alcohol intake: current Smoking Status: Never smoker alcohol intake frequency: 0-2 drinks per day Substance Use Type: does not use Exam Narrative Exam Narrative: GEN: Patient appears in mild distress. HEAD: Patient has a hematoma in the forehead with bruising tracking down below the right eye and just below the left eye., no raccoon/Rodriguez sign. NECK: Nontender, painless range of motion, trachea midline Negative Nexus criteria, there is no midline line tenderness, distracting injury, altered mental status, neuro deficit, recent EtOH. EYES: PERRLA, EOMI ENT: External inspection normal, trachea is midline, TM's are normal no hemotypanum, Nares are clear, no septal hematoma, no dental or oral injury, airway is normal and with normal occlusion, No bony tenderness RESP: Chest is nontender and has symmetric movement, no ecchymosis, breath sounds are normal no crackles, wheezes or rales CVS: Heart sounds are normal, no murmur noted, No JVD. ABG/GI: Nontender, soft, normal bowel sounds, no distention, no organomegaly, pelvic rock is negative NEURO: Oriented AOx3, neuro is grossly intact, sensation and motor is normal all 4 extremities moving, cranial nerves II through XII are intact, GCS is 15 PSYCH: Normal mood and affect SKIN: Intact, warm and dry, no crepitus and without decubitus BACK: No CVA tenderness, no vertebral tenderness, no step-off's, no crepitus EXT: Atraumatic, hips are nontender, no pedal edema, normal color and temperature, normal range of motion of extremities with normal tendon exam, 2+ pulses in all four extremities Initial Vital Signs Initial Vital Signs: Vital Signs Temperature 97.8 F 09/12/23 18:02 Pulse Rate 72 09/12/23 18:02 Respiratory Rate 18 09/12/23 18:02 Blood Pressure 153/67 H 09/12/23 18:02 Pulse Oximetry 99 09/12/23 18:02 Oxygen Delivery Method Room Air 09/12/23 18:[address] [address] Head Rule Patient on blood thinners: Yes Age greater or equal to 65 years: Yes GCS [place] coma scale eye opening: Spontaneous [place] coma scale verbal response: Orientated [place] coma scale motor response: Obey commands [place] coma scale total score: 15 Nexus Score for C-Spine Focal Neurologic deficit present: No Midline spinal tenderness present: No Altered level of conciousness present: No Intoxication present: No Distracting Injury Present: No Nexus Criteria for C-spine: 0 Course Orders Ordered: ED Orders 09/12/23 18:13 CT cervical spine wo con Stat CT facial bones wo con Stat CT head/brain wo con Stat XR chest 1V Stat EKG-12 Lead Stat 09/12/23 18:38 Complete Blood Count AUTO DIFF Stat Comprehensive Metabolic Panel Stat Lipase Stat Magnesium Stat PTT Partial Thromboplastin [place] Stat Prothrombin Time INR Stat Troponin & CK Cardiac Panel Stat Vital Signs Vital signs: Vital Signs - 8 hr 09/12/23 18:02 09/12/23 18:45 09/12/23 18:47 Temperature 97.8 F Pulse Rate 72 74 Respiratory Rate 18 Blood Pressure 153/67 H 154/67 H Pulse Oximetry 99 Oxygen Delivery Method Room Air 09/12/23 18:47 09/12/23 19:00 09/12/23 19:00 Temperature Pulse Rate 74 75 Respiratory Rate 32 H Blood Pressure 160/66 H Pulse Oximetry 100 100 Oxygen Delivery Method 09/12/23 19:30 09/12/23 19:30 Temperature Pulse Rate 77 Respiratory Rate 22 Blood Pressure 135/65 Pulse Oximetry 97 Oxygen Delivery Method Room Air MDM - Fall Lab Data 09/12/23 18:38 09/12/23 18:38 Labs: Lab Results 09/12/23 Range/Units 18:38 WBC 6.2 (4.5-11.0) X10^3/uL RBC 2.95 L (4.0-5.2) X10^6/uL Hgb 10.6 L (12.0-16.0) g/dL Hct 30.8 L (36-46) % MCV 104.4 H (80-100) fL MCH 35.9 H (26-34) PG MCHC 34.4 (30-36) % RDW 13.7 (11.6-14.8) % Plt Count 240 (150-400) X10^3/uL Neut % (Auto) 78.5 H (50-75) % Lymph % (Auto) 10.8 L (25-40) % [place] % (Auto) 8.9 (3-14) % Eos % (Auto) 1.2 L (2-4) % Baso % (Auto) 0.6 (0-2) % Neut # (Auto) 4900 (4315-8288) /uL Lymph # (Auto) 700 L (5528-3971) /uL [place] # (Auto) 600 (0-900) /uL Eos # (Auto) 100 (0-450) /uL Baso # (Auto) 0 (0-100) /uL PT 12.7 H (9.4-12.5) SECONDS INR 1.1 (0.9-1.3) APTT 31 (25.1-36.5) SECONDS Sodium 133 L (137-145) mmol/L Potassium 4.7 (3.4-5.1) mmol/L Chloride 101 (98-107) mmol/L Carbon Dioxide 17 L (22-32) mmol/L BUN 28 H (7-17) mg/dL Creatinine 1.16 H (0.52-1.04) mg/dL Estimated GFR 51 L (>60) mL/min BUN/Creatinine Ratio 24.1 H (6-22) Glucose 93 (80-110) mg/dL Calcium 10.0 (8.4-10.2) mg/dL Magnesium 1.6 (1.6-2.3) mg/dL Total Bilirubin 0.6 (0.2-1.3) mg/dL AST 36 (14-36) IU/L ALT 25 (<35) IU/L Alkaline Phosphatase 57 (38-126) U/L Total Creatine Kinase 80 (30-135) U/L Troponin I < 0.012 (0.01-0.034) ng/mL Total Protein 7.7 (6.3-8.2) g/dL Albumin 4.6 (3.5-5.0) g/dL Globulin 3.1 (1.7-4.1) g/dL Albumin/Globulin Ratio 1.5 (1.0-2.8) Lipase 66 (23-300) U/L Imaging Data CT scan - head: Radiologist's Impression: [address] [address] [address] Scan Report Signed Patient: Jackie Wayne MR#: [id number] : 1955 Acct:[id number] Age/Sex: 67 / F Date of Service: 09/12/23 Loc: ED Accession Number: [id number] Procedure: CT head/brain wo con Ordering Provider: Shayy Araiza D.O. PROCEDURE: CT HEAD/BRAIN WO CON INDICATIONS: fall on thinners, + facial trauma TECHNIQUE: Noncontrast 4.5 mm thick angled axial sections acquired from the foramen magnum to the vertex, with coronal and sagittal reformats. For radiation dose reduction, the following was used: automated exposure control, adjustment of mA and/or kV according to patient size. COMPARISON: [facility], CT, CT HEAD/BRAIN WO CON, 11/21/2021, 14:33. FINDINGS: Image quality: Excellent. CSF spaces: Basal cisterns are patent. No extra-axial fluid collections. The ventricles are symmetric in size and shape. Remote cerebral aneurysm coiling, likely the anterior communicating artery on the left. Brain: No intracranial bleeds or masses. There is cerebral volume loss for age, with resultant ventricular and sulcal prominence. There are moderate periventricular and deep white matter chronic small vessel ischemic changes. There is intracranial internal carotid artery atherosclerosis. Skull and face: Subgaleal hematoma, right frontal region. Calvarium and visualized facial bones appear intact, without suspicious lesions. Sinuses: Visualized sinuses and mastoids are clear. IMPRESSION: 1. No acute intracranial pathology. 2. Age-related volume loss and moderate small vessel ischemic change. 3. Remote aneurysm coiling. 4. Subgaleal hematoma. Dictated by: Ace Gamino M.D. on 09/12/2023 at 18:50 Approved by: Ace Gamino M.D. on 09/12/2023 at 18:52 CT - cervical spine: Radiologist's Impression: [place] [address] CT Scan Report Signed Patient: Jackie Wayne MR#: [id number] : 1955 Acct:[id number] Age/Sex: 67 / F Date of Service: 09/12/23 Loc: ED Accession Number: [id number] Procedure: CT cervical spine wo con Ordering Provider: Shayy Araiza D.O. PROCEDURE: CT CERVICAL SPINE WO CON INDICATIONS: fall on thinners, + facial trauma TECHNIQUE: Noncontrast 3 mm thick sections acquired from the skull base to the T4 level. Sagittal and coronal reformats were then constructed. For radiation dose reduction, the following was used: automated exposure control, adjustment of mA and/or kV according to patient size. COMPARISON: None. FINDINGS: Image quality: Excellent. Bones: No fractures or dislocations. Visualized superior ribs are intact. Severe cervical spondylitic change. Multilevel disc height loss and uncovertebral joint hypertrophy. Multilevel facet arthropathy. Soft tissues: Prevertebral soft tissues are normal in thickness. No paravertebral hematomas. No apical pneumothoraces. IMPRESSION: No acute cervical fracture or dislocation. Cervical spondylosis. Dictated by: Ace Gamino M.D. on 09/12/2023 at 18:54 Approved by: Ace Gamino M.D. on 09/12/2023 at 18:[address]: Radiologist's Impression: Close Head CT (Signed) Ace Gamino - 09/12/[address] (Signed) Ace Gamino - 09/12/23 Chest X-Ray (Signed) Ace Gamino - 09/12/[address] (Signed) Ace Gamino - 09/12/23 Mammogram Screening (Signed) Chinedu Villasenor - 11/08/22 Echocardiogram Ultrasound (Signed) Gaurav Vergara - 04/23/22 DEXA Result 12/25/21 DEXA Result 12/25/[address] (Signed) Eduardo Sue - 12/25/21 Bone Densitometry 12/25/21 Telemetry Strips 11/21/21 Head/Neck CTA (Signed) Eduardo Sue - 11/21/[address] (Signed) Eduardo Sue - 11/21/21 Mammogram Screening (Signed) Osman Yang - 09/24/21 Launch?[facility] [address] [address] [address] Scan Report Signed Patient: Jackie Wayne MR#: [id number] : 1955 Acct:[id number] Age/Sex: 67 / F Date of Service: 09/12/23 Loc: ED Accession Number: [id number] Procedure: CT facial bones wo con Ordering Provider: Shayy Araiza D.O. PROCEDURE: CT FACIAL BONES WO CON INDICATIONS: fall on thinners, + facial trauma TECHNIQUE: Noncontrast 2.5 mm thick axial images acquired from the mandible through the frontal sinuses, with coronal and sagittal reformatting. For radiation dose reduction, the following was used: automated exposure control, adjustment of mA and/or kV according to patient size. COMPARISON: [facility], CT, CT FACIAL BONES WO CON, 12/25/2021, 13:21. FINDINGS: Image quality: Excellent. Bones and teeth: Orbital swann are intact. Sinus swann show no fracture or deformity. Nasal bones and septum are intact. Visualized portions of the mandible demonstrate no fractures or subluxation. Zygomatic arches are intact. Pterygoid plates are intact. Visualized portions of the skull base and auditory canals are intact. Sinuses: Paranasal sinuses are aerated, without fluid levels, mucosal thickening, or mucoceles. Mastoid air cells are aerated. Soft tissues: No edema, masses, or fluid collections. No enlarged lymph nodes. No soft tissue lacerations or debris. Vascular: Visualized vascular structures appear normal in the absence of contrast. Bony vascular foramina and canals are intact. IMPRESSION: No displaced facial bone fracture or mandibular fracture. Dictated by: Ace Gamino M.D. on 09/12/2023 at 18:52 Approved by: Ace Gamino M.D. on 09/12/2023 at 18:54 Chest x-ray: Radiologist's Impression: Close Head CT (Signed) StevensonAce - 09/12/[address] (Signed) StevensonAce - 09/12/23 Chest X-Ray (Signed) StevensonAce - 09/12/[address] (Signed) StevensonAce - 09/12/23 Mammogram Screening (Signed) Chinedu Villasenor - 11/08/22 Echocardiogram Ultrasound (Signed) KvngangelikaGaurav - 04/23/22 DEXA Result 12/25/21 DEXA Result 12/25/[address] (Signed) Eduardo Sue - 12/25/21 Bone Densitometry 12/25/21 Telemetry Strips 11/21/21 Head/Neck CTA (Signed) Eduardo Sue - 11/21/[address] (Signed) Eduardo Sue - 11/21/21 Mammogram Screening (Signed) Osman Yang - 09/24/21 [place] [address] XRay Report Signed Patient: Jackie Wayne MR#: [id number] : 1955 Acct:[id number] Age/Sex: 67 / F Date of Service: 09/12/23 Loc: ED Accession Number: [id number] Procedure: XR chest 1V Ordering Provider: Shayy Araiza D.O. PROCEDURE: XR CHEST 1V INDICATIONS: chest pain TECHNIQUE: One view of the chest was acquired. COMPARISON: [facility], CHEST 2 VIEW, 03/07/2010, 13:23. FINDINGS: Surgical changes and devices: Right lumpectomy and right axillary node resection Lungs and pleura: Lungs are clear. No pleural effusions or pneumothorax. Mediastinum: Mediastinal contours appear normal. Heart size is normal. Bones and chest wall: No suspicious bony lesions. Overlying soft tissues appear unremarkable. IMPRESSION: No evidence acute pulmonary process. Dictated by: Ace Gamino M.D. on 09/12/2023 at 18:55 Approved by: Ace Gamino M.D. on 09/12/2023 at 18:56 ECG Data Attestation: I personally reviewed and interpreted this ECG as follows: Prior ECG tracings: available for review Interpretation: Rhythm rate of 71 LA 184. No acute ST elevation or depression. Patient has prior from 11/21/2021, appears fairly similar. Depression in V4 5 that was not present although very mild 1 mm depression on old. MDM Narrative Medical decision making narrative: 67-year-old female who had what sounds like a syncopal episode moving from seated to standing 4 days ago. Patient has had is on Eliquis. Did have loss of bladder control when the episode happened. No seizure activity was witnessed. It was witnessed and was a couple seconds. Patient states she does get dizzy when she goes from seated to standing frequently. She has not had any other persistent symptoms, no additional episodes, no acute neurologic changes. Head CT shows subgaleal hematoma but no other acute changes. C-spine CT is negative for acute change Facial bone CT is negative for acute change Chest x-ray no acute change noted. Labs show white count 6.2 hemoglobin is 10.6 improved from last year in 2021 at 8.9 with normal platelets. Sodium is 133 creatinine 1.16 also improved from November 2021 1.24, CO2 of 17 but potassium is appropriate with normal LFTs negative troponin. INR is 1.1. Discharge Plan Departure Patient Disposition: Home Clinical Impression: Hemorrhage, subgaleal Activity Restrictions/Additional Instructions: Please follow-up for recheck as needed. You have a subgaleal hematoma, this is a bruise or a blood collection that has likely stopped bleeding but if you have persistent bruising that is spreading I would stop your blood thinner for 2-3 days. And then restart after this. Please return for increasing bruising, severe headachesm, new neck pain, chest pain, shortness of breath, recurrent episodes of passing out, new swelling of her extremities or other new or concerning changes. Prescriptions: No Action ibuprofen 600 MG tablet 600 mg PO Q6HP PRNQty: 60 0RF losartan [Cozaar] 50 MG tablet 50 mg PO Q DAY Qty: 90 1RF sertraline 100 MG tablet 100 mg PO QDAY Qty: 90 1RF propranolol 10 MG tablet 10 mg PO BID Qty: 180 1RF omeprazole 20 MG tablet,delayed release (DR/EC) 20 mg PO QDAY Qty: 90 1RF alprazolam 0.25 MG tablet 0.25 mg PO QDAYP PRNQty: 28 0RF spironolactone 25 MG tablet 0 PO SEE INSTRUCTIONS Qty: 120 0RF Referrals: Yasmin Cartwright ARNP [Primary Care Provider] - Stand Alone Forms: Patient Portal/API
--- NOTE | 2023-09-12 18:44 | PC.NURSE ---
Pt arrived to the ED today with significant other from [facility]. Pt fell on friday because she stood up too fast then felt dizzy and fainted. Pt and partner report pt LOC for a few seconds. Right side of pt's face is swollen and significant dark-reddish purple bruising noted. Pt pupils are equal and reactive. Pt a&ox4. 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 Pt denies any n/v, confusion, dizziness or changes in mental status following the fall and at this time. pt complains of 6/10 pain in her head that she describes as dull throbbing. Pt takes blood thinner.
[2023-09-12 18:45] VITALS: PULSE 74
[2023-09-12 18:47] VITALS: BP 154/67; PULSE 74; O2SAT 100
[2023-09-12 18:59] LABS: Add Manual Diff / Slide Review NO; Basophils Absolute Auto 0 /uL (0-100); Basophils Percent Auto 0.6 % (0-2); Eosinophils Absolute Auto 100 /uL (0-450); Eosinophils Percent Auto 1.2 % (2-4); Hematocrit 30.8 % (36-46); Hemoglobin 10.6 g/dL (12.0-16.0); Lymphocytes Absolute Auto 700 /uL (1100-4500); Lymphocytes Percent Auto 10.8 % (25-40); Mean Corpuscular HGB Conc 34.4 % (30-36); Mean Corpuscular Hemoglobin 35.9 PG (26-34); Mean Corpuscular Volume 104.4 fL (80-100); Monocytes Absolute Auto 600 /uL (0-900); Monocytes Percent Auto 8.9 % (3-14); Neutrophils Absolute Auto 4900 /uL (1500-7000); Neutrophils Percent Auto 78.5 % (50-75); Platelet Count 240 X10^3/uL (150-400); Red Blood Cell Count 2.95 X10^6/uL (4.0-5.2); Red Cell Distribution Width 13.7 % (11.6-14.8); White Blood Cell Count 6.2 X10^3/uL (4.5-11.0)
[2023-09-12 19:00] VITALS: BP 160/66; PULSE 75; RESP 32; O2SAT 100
[2023-09-12 19:10] LABS: INR 1.1 (0.9-1.3); Prothrombin Time 12.7 SECONDS (9.4-12.5)
[2023-09-12 19:13] LABS: PTT Partial Thromboplastin Tim 31 SECONDS (25.1-36.5)
[2023-09-12 19:27] LABS: Alanine Aminotransferase 25 IU/L (<35); Albumin 4.6 g/dL (3.5-5.0); Albumin Globulin Ratio 1.5 (1.0-2.8); Alkaline Phosphatase 57 U/L (38-126); Aspartate Aminotransferase 36 IU/L (14-36); BUN Creatinine Ratio 24.1 (6-22); Bilirubin Total 0.6 mg/dL (0.2-1.3); Blood Urea Nitrogen 28 mg/dL (7-17); Carbon Dioxide 17 mmol/L (22-32); Chloride 101 mmol/L (98-107); Creatine Kinase 80 U/L (30-135); Estimated Glomerular Filt Rate 51 mL/min (>60); Globulin 3.1 g/dL (1.7-4.1); Glucose 93 mg/dL (80-110); HEMOLYSIS < 15 (0-50); Lipase 66 U/L (23-300); Magnesium 1.6 mg/dL (1.6-2.3); Potassium 4.7 mmol/L (3.4-5.1); Sodium 133 mmol/L (137-145); Total Protein 7.7 g/dL (6.3-8.2)
[2023-09-12 19:30] VITALS: BP 135/65; PULSE 77; RESP 22; O2SAT 97
[2023-09-12 19:39] LABS: Troponin I < 0.012 ng/mL (0.01-0.034)
== END 2023-09-12 19:56 | disposition home or self-care (01) ==
PROVIDERS: Emergency Provider Emergency Medicine; Family Provider Family Medicine; PCP Nurse Practitioner Family
DX: S00.83XA Contusion of other part of head, initial encounter (principal); W18.30XA Fall on same level, unspecified, initial encounter; Z79.01 Long term (current) use of anticoagulants; R94.31 Abnormal electrocardiogram [ECG] [EKG]
CPT/HCPCS: 36415; 70450; 70486; 71045; 72125; 80053; 82550; 83690; 83735; 84484; 85025; 85610; 85730; 93005; 99284

== ENCOUNTER 2024-07-09 15:50 | Emergency (ER) | payer MEDICARE, SELFPAY ==
[2021-11-21 16:54] VITALS: BMI 23.3
[2024-07-09] VITALS (30 sets, daily range): BP systolic 129–189; BP diastolic 56–77; PULSE 64–74; RESP 14–40; TEMP 36.9; O2SAT 93–100; BMI 24.2
--- NOTE | 2024-07-09 16:08 | DI.RAD.S_ITS ---
PROCEDURE: XR ANKLE LT MIN 3V INDICATIONS: Left ankle injury TECHNIQUE: 3 views of the ankle were acquired. COMPARISON: None. FINDINGS: Bones: Acute oblique fracture through distal fibular shaft/lateral malleolus is seen extending to lateral ankle mortise with lateral and posterior displacement of the fractured fragment. There is also acute slightly displaced fracture involving posterior malleolus. There is complete disruption of ankle mortise with lateral subluxation of the talar dome in relation to distal tibia. Subtle linear lucency involving medial malleolus is also seen, a subtle nondisplaced fracture cannot be excluded. Soft tissues: Marked soft tissue swelling around ankle joint is seen. IMPRESSION: Finding is concerning for displaced trimalleolar fracture of left ankle with disruption of ankle mortise, lateral subluxation of talar dome in relation to distal tibia and diffuse ankle soft tissue swelling. Dictated by: Elpidio Jeff M.D. on 07/09/2024 at 16:48 Approved by: Elpidio Jeff M.D. on 07/09/2024 at 16:51
--- NOTE | 2024-07-09 16:08 | DI.RAD.S_ITS ---
PROCEDURE: XR TIBIA FIBULA LT 2V INDICATIONS: Left ankle injury TECHNIQUE: 2 views of the tibia and fibula were acquired. COMPARISON: Ankle and foot radiograph from the same day. FINDINGS: Bones: Displaced fracture involving distal fibular shaft is seen. . Earlier described possible nondisplaced or minimally displaced posterior malleolus fracture and medial malleolus fracture are not definitely seen on the current study. No proximal to mid lower leg fracture or dislocation. Soft tissues: No suspicious soft tissue calcifications or masses. IMPRESSION: No proximal to mid lower leg fracture or dislocation. Please correlate with ankle radiograph findings. Dictated by: Elpidio Jeff M.D. on 07/09/2024 at 16:52 Approved by: Elpidio Jeff M.D. on 07/09/2024 at 16:54
--- NOTE | 2024-07-09 16:08 | DI.RAD.S_ITS ---
PROCEDURE: XR FOOT LT 2V INDICATIONS: Left ankle injury TECHNIQUE: 3 views of the foot were acquired. COMPARISON: None. FINDINGS: Bones: No acute fracture or dislocation is seen in midfoot and forefoot. Likely trimalleolar fracture of left ankle is seen. There is diffuse osteopenia. Midfoot and forefoot joint osteoarthritic changes also noted. No suspicious bony lesions. Soft tissues: No abnormal soft tissue calcifications. IMPRESSION: No acute fracture or dislocation is seen in midfoot and forefoot. Please correlate with ankle radiograph findings for evaluation of hindfoot. Dictated by: Elpidio Jeff M.D. on 07/09/2024 at 16:51 Approved by: Elpidio Jeff M.D. on 07/09/2024 at 16:52
--- NOTE | 2024-07-09 17:24 | ED_ITS ---
HPI - Extremity Injury (Lower) General Chief Complaint: Extremity Injury, Lower Stated Complaint: Fall,ankle injury Time Seen by Provider: 07/09/24 17:24 Source: patient and EMS Mode of arrival: EMS History of Present Illness HPI Narrative: Patient 68-year-old female history of frequent falls chronic gait disturbance presenting today with left ankle pain after ground level fall. She reports that she was on the toilet trying to get up and frequently needs help. Between her and her she stumbled and fell landing on her left. She did not hit her head or lose consciousness. She has no significant pelvic or hip pain. No neck pain no rib pain. Not on antiplatelet or anticoagulation medication. She previously fell and broke her right humerus she reports she was in a cast she is right-handed falls frequently and basically laid in bed for 3 months. Related Data Previous Rx's Medication Instructions Recorded ibuprofen 600 mg tablet 600 mg PO Q6HP PRN #60 tabs 12/17/16 losartan 50 mg tablet (Cozaar) 50 mg PO Q DAY #90 tabs 12/23/16 sertraline 100 mg tablet 100 mg PO QDAY #90 tabs 02/11/17 propranolol 10 mg tablet 10 mg PO BID #180 tabs 02/26/17 omeprazole 20 mg tablet,delayed 20 mg PO QDAY #90 tabs 03/19/17 release alprazolam 0.25 mg tablet 0.25 mg PO QDAYP PRN #28 tabs 04/07/17 spironolactone 25 mg tablet 0 PO SEE INSTRUCTIONS #120 tabs 06/20/17 oxycodone 5 mg tablet 5 mg PO Q6H PRN pain #20 tabs 07/09/24 Allergies Allergy/AdvReac Type Severity Reaction Status Date / Time meperidine [MEPERIDINE] Allergy Mild RASH Verified 09/12/23 18:02 lisinopril [LISINOPRIL] AdvReac Mild ough Verified 09/12/23 18:02 Patient History Medical History Cerebral aneurysm Unspecified essential hypertension (06/25/02) Malignant neoplasm of breast (female), unspecified site (06/25/02) Surgical History H/O bilateral oophorectomy History of lumpectomy of right breast S/P coil embolization of cerebral aneurysm Family History Brother Cancer Mother Cerebral aneurysm Social History household members: spouse Smoking Status: Never smoker alcohol intake: current Smoking Status: Never smoker alcohol intake frequency: 0-2 drinks per day Alcohol type: wine Substance Use Type: does not use Exam Initial Vital Signs Initial Vital Signs: Vital Signs Pulse Rate 69 07/09/24 15:55 Pulse Oximetry 98 07/09/24 15:55 GENERAL: Alert very pleasant 68-year-old female and in no acute distress. HEENT: Head atraumatic,EOMI, pupils reactive, face symmetric, moist mucous membranes CARDIOVASCULAR: Regular rate and rhythm without murmurs, rubs or gallops. RESPIRATORY: Breath sounds equal bilaterally, no wheezes rales or rhonchi. ABDOMEN: Soft, nontender. Normoactive bowel sounds all 4 quadrants. No guarding or rebound. EXTREMITIES: Normal range of motion, no clubbing or edema. Neurovascularly intact Left lower extremity distal pedal pulse present ankle deformity knee stable no significant fibular head tenderness Pelvis is stable NEUROLOGICAL: Alert and oriented x4.Normal gait and speech. SKIN: Warm, dry, no laceration, no petechiae, no rashes or lesions. Procedures Orthopedic Fracture Reduction Fracture #1: Time Out Performed: Yes Side: left Fracture Reduction Location: tibia and fibula Analgesia: procedural sedation Technique: direct manipulation Post-reduction neuro exam: intact Post-reduction vascular exam: intact Splint Applied: Yes Patient Tolerated Procedure: Well Procedural Sedation Time out performed: Yes Indication: fracture/dislocation reduction ASA Class: II Mallampati Airway Classification: Class II IV Propofol dose (mg): 50 Intraservice time/total sedation time (min): 13 ED Sedation Level: Moderate (Concious) Patient Tolerated Procedure: Well and No complications Complications: none Course Orders Ordered: Discontinued Medications Morphine Sulfate (Morphine 4 Mg/Ml Inj) 4 mg IV NOW ONE Stop: 07/09/24 17:32 Last Admin: 07/09/24 17:37 Dose: 4 mg Documented By: [facility] Ondansetron HCl (Ondansetron 4 Mg/2 Ml Inj) 4 mg IV NOW ONE Stop: 07/09/24 17:33 Last Admin: 07/09/24 17:37 Dose: 4 mg Documented By: [facility] Oxycodone/Acetaminophen (Oxycodone/Acetaminophen 5/325 Tablet) 1 tab PO NOW ONE Stop: 07/09/24 18:53 Last Admin: 07/09/24 19:01 Dose: 1 tab Documented By: [facility] Oxycodone/Acetaminophen (Oxycodone/Apap 5/325 Prepack) 1 bottle MISC DIRECTED ONE Stop: 07/09/24 18:53 Last Admin: 07/09/24 19:01 Dose: 1 bottle Documented By: [facility] Propofol (Propofol 200 Mg/20 Ml Vial) 70 mg 1 mg/kg (70 mg) IV NOW ONE Stop: 07/09/24 17:53 Last Admin: 07/09/24 18:11 Dose: 50 mg Documented By: [facility] Vital Signs Vital signs: Vital Signs - 8 hr 07/09/24 15:55 07/09/24 16:02 07/09/24 16:04 Temperature 98.4 F Pulse Rate 69 71 Respiratory Rate 18 Blood Pressure 158/70 H Pulse Oximetry 98 98 Oxygen Delivery Method Room Air 07/09/24 16:04 07/09/24 16:30 07/09/24 16:31 Temperature Pulse Rate 66 66 Respiratory Rate 24 24 Blood Pressure 160/69 H Pulse Oximetry 98 97 Oxygen Delivery Method 07/09/24 16:31 07/09/24 17:00 07/09/24 17:30 Temperature Pulse Rate 64 70 72 Respiratory Rate 23 22 26 H Blood Pressure Pulse Oximetry 99 93 93 Oxygen Delivery Method 07/09/24 17:44 07/09/24 17:44 07/09/24 17:45 Temperature Pulse Rate 71 67 Respiratory Rate 30 H 19 Blood Pressure 189/77 H Pulse Oximetry 99 99 Oxygen Delivery Method 07/09/24 17:50 07/09/24 17:55 07/09/24 18:00 Temperature Pulse Rate 67 65 68 Respiratory Rate 36 H 29 H 31 H Blood Pressure Pulse Oximetry 100 99 99 Oxygen Delivery Method 07/09/24 18:01 07/09/24 18:01 07/09/24 18:05 Temperature Pulse Rate 66 65 Respiratory Rate 34 H 36 H Blood Pressure 170/65 H Pulse Oximetry 100 99 Oxygen Delivery Method 07/09/24 18:07 07/09/24 18:10 07/09/24 18:13 Temperature Pulse Rate 68 71 69 Respiratory Rate 21 30 H 25 H Blood Pressure 170/65 H Pulse Oximetry 99 100 95 Oxygen Delivery Method 07/09/24 18:13 07/09/24 18:15 07/09/24 18:15 Temperature Pulse Rate 71 Respiratory Rate 32 H Blood Pressure 143/56 H 130/61 Pulse Oximetry 94 Oxygen Delivery Method 07/09/24 18:16 07/09/24 18:20 07/09/24 18:20 Temperature Pulse Rate 67 72 73 Respiratory Rate 21 22 29 H Blood Pressure 130/61 129/59 L Pulse Oximetry 99 99 99 Oxygen Delivery Method 07/09/24 18:20 Temperature Pulse Rate Respiratory Rate Blood Pressure 129/59 L Pulse Oximetry Oxygen Delivery Method MDM - Extremity Injury (Lower) Lab Data Labs: Point of Care Testing Test Results Not applicable Imaging Data Extremity x-ray #1: Radiologist's Impression: INDICATIONS: Left ankle injury TECHNIQUE: 3 views of the ankle were acquired. COMPARISON: None. FINDINGS: Bones: Acute oblique fracture through distal fibular shaft/lateral malleolus is seen extending to lateral ankle mortise with lateral and posterior displacement of the fractured fragment. There is also acute slightly displaced fracture involving posterior malleolus. There is complete disruption of ankle mortise with lateral subluxation of the talar dome in relation to distal tibia. Subtle linear lucency involving medial malleolus is also seen, a subtle nondisplaced fracture cannot be excluded. Soft tissues: Marked soft tissue swelling around ankle joint is seen. IMPRESSION: Finding is concerning for displaced trimalleolar fracture of left ankle with disruption of ankle mortise, lateral subluxation of talar dome in relation to distal tibia and diffuse ankle soft tissue swelling. Dictated by: Elpidio Jeff M.D. on 07/09/2024 at 16:48 Extremity x-ray #2: Radiologist's Impression: PROCEDURE: XR FOOT LT 2V INDICATIONS: Left ankle injury TECHNIQUE: 3 views of the foot were acquired. COMPARISON: None. FINDINGS: Bones: No acute fracture or dislocation is seen in midfoot and forefoot. Likely trimalleolar fracture of left ankle is seen. There is diffuse osteopenia. Midfoot and forefoot joint osteoarthritic changes also noted. No suspicious bony lesions. Soft tissues: No abnormal soft tissue calcifications. IMPRESSION: No acute fracture or dislocation is seen in midfoot and forefoot. Please correlate with ankle radiograph findings for evaluation of hindfoot. Dictated by: Elpidio Jeff M.D. on 07/09/2024 at 16:51 Approved by: Elpidio Jeff M.D. on 07/09/2024 at 16:52 Extremity x-ray #3: Radiologist's Impression: PROCEDURE: XR TIBIA FIBULA LT 2V INDICATIONS: Left ankle injury TECHNIQUE: 2 views of the tibia and fibula were acquired. COMPARISON: Ankle and foot radiograph from the same day. FINDINGS: Bones: Displaced fracture involving distal fibular shaft is seen. . Earlier described possible nondisplaced or minimally displaced posterior malleolus fracture and medial malleolus fracture are not definitely seen on the current study. No proximal to mid lower leg fracture or dislocation. Soft tissues: No suspicious soft tissue calcifications or masses. IMPRESSION: No proximal to mid lower leg fracture or dislocation. Please correlate with ankle radiograph findings. Dictated by: Elpidio Jeff M.D. on 07/09/2024 at 16:52 CT LE: Radiologist's Impression: PROCEDURE: CT LE LT W CON INDICATIONS: ankle fracture TECHNIQUE: Noncontrast 3-mm axial sections acquired from the distal tibial shaft to the talar dome, with coronal and sagittal reformats.. COMPARISON: [facility], , XR ANKLE LT MIN 3V, 07/09/2024, 16:23. FINDINGS: Image quality: Diagnostic Bones: Moderately displaced lateral malleolus fracture with comminution, extending from and above the level of the syndesmosis. Mildly displaced posterior malleolus fracture. Mildly displaced and comminuted medial malleolus fracture. Small volume fragments also seen at the level of the syndesmosis. There is widening of the medial gutter. Background mild degenerative changes. Prominent osteophytes from the dorsal talus. Soft tissues: There is diffuse soft tissue swelling. Some of the medial fracture fragments slightly displaced the flexor tendons at the tarsal tunnel. IMPRESSION: Trimalleolar fractures, syndesmotic avulsion fractures, and widening of the medial mortise representing unstable ankle trauma. Dictated by: Chinedu Villasenor M.D. on 07/09/2024 at 19:41 MDM Narrative Medical decision making narrative: Patient 68-year-old female who has frequent falls presents today after mechanical fall in the bathroom and left ankle pain. She does have a left ankle fracture x-rays have been reviewed concern for trimalleolar fracture. Mild dislocation noted on the x-ray but neurovascularly intact. She required procedure sedation for splinting. Patient sedated splint placed. A CT was taken afterwards which does show trimalleolar fracture and widening of the mortise. 1830 Dr. Fiore updated on patient's symptoms test results have reviewed x-rays herself agrees with outpatient follow-up will need surgery. Has been at bedside patient reports that they have wheelchair and all things at home. They understand that she will need surgery. She has previously been established with Orthopedics at [facility] they may choose to go there. They understand that she will need surgery they understand no weight-bearing elevate and ice. Also given return precautions Patient says that she has previously had oxycodone for her prior fracture and that worked well. Discharge Plan Departure Patient Disposition: Home Clinical Impression: Ankle fracture, left Instructions: Ankle Fracture Activity Restrictions/Additional Instructions: *You have been diagnosed with left ankle fracture *What to do: You will need surgery. Not emergently today but likely next week. You will need to call orthopedics to schedule follow-up appointment. No weight-bearing Elevate and ice as often as possible *Continue to take medications as directed Oxycodone 5 mg every 6 hours only if needed for severe pain Tylenol 1000 mg every 6 hours if needed for [id number] pain *Follow up with your primary care provider in 2-3 days or call [phone] *Return to ER if you should have increasing pain inability to move toes, or any new, worsening or concerning symptoms CONTROLLED SUBSTANCE DISCHARGE (Narcotoic/benzodiazepine/Flexeril/Phenergan) 1. You have been prescribed narcotic medications, it does have acetaminophen/Tylenol/paracetamol in it, DO NOT TAKE MORE THAN 4,00mg in 24 hours of Tylenol. TRAMADOL DOES NOT CONTAIN TYLENOL 2. Please understand that we cannot provide further refills of narcotics, benzodiazepines or controlled substances through the ED and her pain management will need to be through your provider. 3. While on these medications you cannot drive or operate heavy machinery. 4. You cannot sign legal documents or perform any duties such as this. 5. As long as you're taking opiate pain medications he should also be taking a stool softener such as Colace, Dulcolax, MiraLAX or prune juice, to help avoid constipation. Prescriptions: New oxycodone 5 mg tablet 5 mg PO Q6H PRN (Reason: pain) Qty: 20 0RF No Action ibuprofen 600 MG tablet 600 mg PO Q6HP PRNQty: 60 0RF losartan [Cozaar] 50 MG tablet 50 mg PO Q DAY Qty: 90 1RF sertraline 100 MG tablet 100 mg PO QDAY Qty: 90 1RF propranolol 10 MG tablet 10 mg PO BID Qty: 180 1RF omeprazole 20 MG tablet,delayed release (DR/EC) 20 mg PO QDAY Qty: 90 1RF alprazolam 0.25 MG tablet 0.25 mg PO QDAYP PRNQty: 28 0RF spironolactone 25 MG tablet 0 PO SEE INSTRUCTIONS Qty: 120 0RF Referrals: [facility] [Provider Group] Yasmin Cartwright ARNP [Primary Care Provider] - Stand Alone Forms: Patient Portal/API
[2024-07-09] MEDS: ONDANSETRON 4 MG/2 ML INJ IV (17:37)
[2024-07-09] MEDS: MORPHINE 4 MG/ML INJ IV (17:37)
[2024-07-09] MEDS: propofoL 200 MG/20 ML VIAL 70 MG IV (18:11)
--- NOTE | 2024-07-09 18:17 | DI.CT.S_ITS ---
PROCEDURE: CT LE LT W CON INDICATIONS: ankle fracture TECHNIQUE: Noncontrast 3-mm axial sections acquired from the distal tibial shaft to the talar dome, with coronal and sagittal reformats.. COMPARISON: [facility], CR, XR ANKLE LT MIN 3V, 07/09/2024, 16:23. FINDINGS: Image quality: Diagnostic Bones: Moderately displaced lateral malleolus fracture with comminution, extending from and above the level of the syndesmosis. Mildly displaced posterior malleolus fracture. Mildly displaced and comminuted medial malleolus fracture. Small volume fragments also seen at the level of the syndesmosis. There is widening of the medial gutter. Background mild degenerative changes. Prominent osteophytes from the dorsal talus. Soft tissues: There is diffuse soft tissue swelling. Some of the medial fracture fragments slightly displaced the flexor tendons at the tarsal tunnel. IMPRESSION: Trimalleolar fractures, syndesmotic avulsion fractures, and widening of the medial mortise representing unstable ankle trauma. Dictated by: Chinedu Villasenor M.D. on 07/09/2024 at 19:41 Approved by: Chinedu Villasenor M.D. on 07/09/2024 at 19:44
[2024-07-09] MEDS: OXYCODONE/APAP 5/325 PREPACK 1 BOTTLE MISC (19:01)
[2024-07-09] MEDS: OXYCODONE/ACETAMINOPHEN 5/325 TABLET 1 TAB PO (19:01)
== END 2024-07-09 19:35 | disposition home or self-care (01) ==
PROVIDERS: Emergency Provider Emergency Medicine; Family Provider Family Medicine; PCP Nurse Practitioner Family
DX: S82.52XA Displaced fracture of medial malleolus of left tibia, initial encounter for closed fracture (principal); W18.30XA Fall on same level, unspecified, initial encounter; Z91.81 History of falling
CPT/HCPCS: 27752; 36415; 73590; 73610; 73620; 73700; 96374; 96375; 99152; 99284; 99285; J2270; J2405; J2704

== ENCOUNTER 2024-07-14 15:32 | Inpatient (IN) | payer MEDICARE, SELFPAY ==
[2021-11-21 16:54] VITALS: BMI 23.3
[2024-07-13] VITALS (10 sets, daily range): BP systolic 113–167; BP diastolic 42–62; PULSE 66–75; RESP 12–20; TEMP 35.4–36.6; O2SAT 92–100; BMI 24.2
--- NOTE | 2024-07-13 15:40 | P.OP_ITS ---
Operative Date/Time/Diagnoses Date of procedure: 07/13/24 Time of procedure: 16:00 Pre-op diagnosis: Comminuted left ankle fracture trimalleolar Post-op diagnosis: same Procedure & Clinicians Procedure: ORIF left ankle, small fragment Arthrex Same procedure as scheduled: Yes Indications: This is a 68-year-old female who fell and noted the acute onset of severe left ankle pain. She is a limited ambulator and does spend a lot of time in a wheelchair. She was seen in the emergency room and noted to have a displaced left ankle fracture. She was brought the operating room for open reduction internal fixation. Surgeon: Kayli Fiore Click Yes if Unassisted: Yes Anesthesia Type: General Operative Notes Findings: Comminuted left ankle fracture, acceptable reduction, soft bone, significant s oft tissue injury medial deltoid repaired with a suture anchor Closure Type: primary Specimen(s): none sent Prosthetic devices, grafts, tissues, transplants, or devices: Arthrex lateral locking plate, suture anchor medial deltoid repair Estimated Blood Loss (mL): 100 Blood products transfused: none Tourniquet time (min): 70 Procedure in detail: Patient was brought to the operating room. She underwent a general anesthesia. Time-out was performed. She was given IV antibiotics. Her left lower extremity was prepped draped standard sterile fashion. The leg was meticulously cleaned. Lateral skin incision was made after elevating the tourniquet to 250 mmHg. Dissection was carried out through skin and subcutaneous tissues. Lateral cutaneous nerve was identified and it was directly overlying the fibula and plate crossing in the region of the most proximal holes. Dissection was carried out meticulously through the subcutaneous tissues in the nerve was carefully protected throughout the procedure. She had fairly soft bone. The fracture was comminuted. The fracture was meticulously reduced using several reduction clamps and being very cautious with the bone because it was quite soft. Acceptable overall alignment was achieved. A lateral plate was selected with a plan for multiple locking screws distally combination of locking and nonlocking proximally. Fracture was held in a carefully reduced position and the plate was placed without difficulty. I also placed a interfragmentary compression screw outside of the plate. Good quality reduction was achieved. Acceptable fixation was achieved. The wound was meticulously irrigated with normal saline and the ankle joint was meticulously irrigated with normal saline cleaning debris and free fragments from the ankle joint. When I stressed her syndesmosis there was no significant gapping through the syndesmosis. Fracture was relatively distal. There was though some residual medial laxity and I felt that it was worthwhile to open the medial side of her ankle. Medial incision was made. Dissection was carried out through skin and subcutaneous tissues. The saphenous vessels carefully protected. There was a degloving injury of the deltoid ligament was stripping of the entire soft tissue sleeve off of the medial malleolus and anterior medial capsule. It was carefully repaired back with a suture anchor with multiple strands of FiberWire. There was clear improved stability of the medial joint after repair. The wounds were irrigated with normal saline. Marcaine was injected and the wounds were closed with interrupted Vicryl and skin david. Patient was placed in a bulky Lopez dressing. She tolerated the procedure well and was transferred to recovery room in satisfactory condition. Complications: none Post-operative Condition: stable Disposition: Acute Care Plan for aftercare: 50 lb weight-bearing Max on the left lower extremity. Discharge to home when safe. Plan for out of bed to wheelchair transfers at home. Follow up in 2 weeks.
--- NOTE | 2024-07-13 15:40 | PM.PREOP ---
Pre-operative Note Interval Note History & Physical reviewed/Exam performed by Physician: Yes Changes to H&P: No
[2024-07-13] MEDS: LACTATED RINGERS 1,000 ML 42 ML IV ×2 (15:42→16:52)
[2024-07-13] MEDS: ACETAMINOPHEN 325 MG TABLET 975 MG PO (15:44)
[2024-07-13] MEDS: CEFAZOLIN 2 GM/100 ML PREMIX 100 ML IV (15:51)
--- NOTE | 2024-07-13 16:19 | SUR.OPER ---
Supine on padded OR bed, head on pillow, arms secured on padded arm boards at <90 degrees abduction, legs uncrossed, bump under left hip, safety belt at abdomen, tape over blanket over lower right leg.
[2024-07-13] MEDS: BUPIVACAINE 0.5% (PF) 30 ML VIAL INJ (16:24)
--- NOTE | 2024-07-13 18:26 | PC.NURSE ---
Patient arrived from PACU at 1800 alert, OX3. VSS, afebrile on RA. She has L foot in cast, wrapped in JONNY wrap, able to wiggle toes +CMS. Patient denies pain currently. She is settled in to room 219, at bedside.She is oriented to room and unit routine, admission assessment completed, postop VS started, continuous pulse ox. SCD to R LE, IVF running. She has a purewick in place. Frequent rounding and continuous monitoring.
[2024-07-13] MEDS: OXYCODONE IR 5 MG TABLET PO (19:31)
[2024-07-13] MEDS: DOCUSATE 100 MG CAPSULE PO (20:20)
[2024-07-13] MEDS: ALPRAZolam 0.25 MG TABLET PO (20:20)
[2024-07-13] MEDS: ASPIRIN EC 81 MG TABLET PO (20:20)
[2024-07-13] MEDS: PROPRANOLOL 10 MG TABLET PO (20:20)
[2024-07-14] MEDS: CEFAZOLIN 2 GM/100 ML PREMIX 100 ML IV ×2 (00:55→09:19)
[2024-07-14 04:28] VITALS: BP 136/62; PULSE 81; RESP 18; TEMP 35.9; O2SAT 99
[2024-07-14] MEDS: PANTOPRAZOLE DR 20 MG TABLET PO (05:34)
[2024-07-14] MEDS: ACETAMINOPHEN 325 MG TABLET 650 MG PO ×3 (05:34→21:20)
[2024-07-14 06:00] LABS: Add Manual Diff / Slide Review NO; Basophils Absolute Auto 0 /uL (0-100); Basophils Percent Auto 0.1 % (0-2); Eosinophils Absolute Auto 0 /uL (0-450); Hematocrit 24.6 % (36-46); Hemoglobin 8.5 g/dL (12.0-16.0); Lymphocytes Absolute Auto 200 /uL (1100-4500); Lymphocytes Percent Auto 2.1 % (25-40); Mean Corpuscular HGB Conc 34.4 % (30-36); Mean Corpuscular Hemoglobin 37.3 PG (26-34); Mean Corpuscular Volume 108.6 fL (80-100); Monocytes Absolute Auto 100 /uL (0-900); Monocytes Percent Auto 1.8 % (3-14); Neutrophils Absolute Auto 7100 /uL (1500-7000); Platelet Count 219 X10^3/uL (150-400); Red Blood Cell Count 2.27 X10^6/uL (4.0-5.2); Red Cell Distribution Width 12.8 % (11.6-14.8); White Blood Cell Count 7.4 X10^3/uL (4.5-11.0)
[2024-07-14 06:02] LABS: BUN Creatinine Ratio 25.6 (6-22); Blood Urea Nitrogen 23 mg/dL (7-17); Calcium 8.4 mg/dL (8.4-10.2); Carbon Dioxide 20 mmol/L (22-32); Chloride 96 mmol/L (98-107); Estimated Glomerular Filt Rate > 60 mL/min (>60); Glucose 314 mg/dL (80-110); HEMOLYSIS < 15 (0-50); Potassium 4.6 mmol/L (3.4-5.1); Sodium 125 mmol/L (137-145)
[2024-07-14 08:00] VITALS: BP 120/55; PULSE 76; RESP 15; TEMP 36.3; O2SAT 97
--- NOTE | 2024-07-14 08:49 | P.PN_ITS ---
Subjective Subjective Interval history: Jackie is a pleasant 68-year-old female who is POD#1 s/p left ankle ORIF for a comminuted trimalleolar left ankle fracture by Dr. Fiore. This morning she reports she is doing well overall, pain is mild-moderate and well controlled w/ her current pain regiment. She is very anxious to get out of bed and work with PT on practicing transfers as she is afraid she may fall again. She has a purewick in place d/t her limited mobility so far. Patient lives at home with her on [address]. No other family or support on [place]. We discussed home vs SNF given patients difficulty mobilizing and hx of frequent falls even prior to sx in additional to limited support on [place]. Denies fever, chills, chest pain, SOB, nausea, vomiting. Exam Vital Signs (past 8 hours): - 07/14/24 04:28 Temperature 96.7 F L Pulse Rate 81 Respiratory Rate 18 Blood Pressure 136/62 Pulse Oximetry 99 Oxygen Flow Rate 0 Oxygen Delivery Method Room Air Oxygen Flow Rate 0 Narrative Exam Narrative: Patient lying comfortably in bed during our interview today. No acute distress. AOx3. Wiggles all toes. Gross sensation intact throughout bilateral lower extremities. Calves soft and non-tender bilaterally. SCDs are on and functioning. Brisk capillary refill. Post-surgical dressing and splint are in place w/ good alignment and w/o any drainage through the dressing. Objective Labs 07/14/24 05:30 07/14/24 05:30 Labs: Laboratory Results - last 24 hr 07/14/24 05:30 WBC 7.4 RBC 2.27 L Hgb 8.5 L Hct 24.6 L MCV 108.6 H MCH 37.3 H MCHC 34.4 RDW 12.8 Plt Count 219 Neut % (Auto) 96.0 H Lymph % (Auto) 2.1 L [place] % (Auto) 1.8 L Eos % (Auto) 0.0 L Baso % (Auto) 0.1 Neut # (Auto) 7100 H Lymph # (Auto) 200 L [place] # (Auto) 100 Eos # (Auto) 0 Baso # (Auto) 0 Sodium 125 L Potassium 4.6 Chloride 96 L Carbon Dioxide 20 L BUN 23 H Creatinine 0.90 Estimated GFR > 60 BUN/Creatinine Ratio 25.6 H Glucose 314 H Calcium 8.4 PFSH Medical History Cerebral aneurysm Unspecified essential hypertension (06/25/02) Malignant neoplasm of breast (female), unspecified site (06/25/02) Surgical History H/O bilateral oophorectomy History of lumpectomy of right breast S/P coil embolization of cerebral aneurysm Family History Brother Cancer Mother Cerebral aneurysm Social History household members: spouse Smoking Status: Never smoker alcohol intake: current Assessment & Plan Post-op Postoperative Procedures: Procedures Operation Date: 07/13/24 13:45 Actual Procedure Side Surgeon p ORIF, fracture, ankle, trimalleolar, without posterior lip fixation Left Kayli Fiore MD Postoperative plan narrative: 1) Discharge to home vs SNF pending patients progress w/ PT in the next day or two. 2) Continue multimodal pain management with ice to the ankle for additional pain control. 3) ASA b.i.d. for DVT prophylaxis. 4) May work w/ PT on mobility. 50 lb weight-bearing Max on the left lower extremity. Plan for out of bed to wheelchair transfers at home. 5) Keep dressing intact, clean, dry until 2 week postop appointment. No soaking the incision site in pools or tubs. No topical ointments or creams to the incision site. 6) Follow up at [facility] orthopedics in 2 weeks for a postop appointment and wound check. All patient's questions were answered, they demonstrates understanding and are in agreement with the plan. Call our office if any questions or concerns arise. Quality VTE Deep Vein Thrombosis/Pulmonary Embolism Present on Admission: No
[2024-07-14] MEDS: AMLODIPINE 5 MG TABLET PO (09:18)
[2024-07-14 09:19] VITALS: BP 120/55; PULSE 76
[2024-07-14] MEDS: LOSARTAN 50 MG TABLET PO (09:19)
[2024-07-14] MEDS: SERTRALINE 50 MG TABLET 100 MG PO (09:19)
[2024-07-14] MEDS: DOCUSATE 100 MG CAPSULE PO (09:19)
[2024-07-14] MEDS: PROPRANOLOL 10 MG TABLET PO (09:19)
[2024-07-14] MEDS: ASPIRIN EC 81 MG TABLET PO ×2 (09:19→21:20)
[2024-07-14] MEDS: ATORVASTATIN 20 MG TABLET 80 MG PO (09:19)
[2024-07-14] MEDS: polyethylene glycoL 3350 17 GM POWD.PACK PO (09:19)
[2024-07-14] MEDS: OXYCODONE IR 5 MG TABLET PO ×4 (09:20→21:20)
--- NOTE | 2024-07-14 10:45 | PT.IIE ---
Current Diagnoses Displaced trimalleolar fracture of left lower leg, initial encounter for closed fracture (07/13/24) Surgery Performed Operation Date: 07/13/24 13:45 Actual Procedures p ORIF, fracture, ankle, trimalleolar, without posterior lip fixation(Left) - Kayli Fiore MD Surgical History (Last Reviewed 07/09/24 @ 17:36 by Charis Campuzano DO) H/O bilateral oophorectomy History of lumpectomy of right breast S/P coil embolization of cerebral aneurysm Medical History (Last Reviewed 07/09/24 @ 17:36 by Charis Campuzano DO) Cerebral aneurysm Malignant neoplasm of breast (female), unspecified site (06/25/02) Unspecified essential hypertension (06/25/02) Physical Therapy Inpatient Evaluation/Re-Eval M1 PT/OT-IP Prior Functional Status Start: 07/14/24 12:54 Freq: NEEDED Status: Active Protocol: Document 07/14/24 10:45 AB (Rec: 07/14/24 13:11 AB [id number]) Medical Review Prior Functional Status Medical History Reviewed Yes Communication able to make needs known Mobility and Gait pt stated that since ankle fx, she was mostly on the w/c and spouse picks her up to transfer; pt stated that spouse cannot assist her: stated that she fell one time when he was assist her prior to ankle fx: pt was modified independent with ambulation : pt stated that she pushes a w/c to ambulate Activities of Daily Living and IADL's per OT note: Due to RUE humerus fracture 4-5 months ago, pt's assist her with most ADL needs, and mainly just doing transfers from wc to bed. Social History Household Members spouse Living Arrangements House Number of Floors (Floors) One Floor Number of Stairs To Enter/Railing? no steps to enter Home Environment High Toilet,Walk in Shower Home Equipment Manual Wheelchair,Hand Held Shower,Grab Bars Near Toilet, Grab Bars In Shower Additional Social History Comment pt stated that she has just been doing sponge bathing since ankle fx M2 PT-IP Current Condition Start: 07/14/24 12:54 Freq: NEEDED Status: Active Protocol: Document 07/14/24 10:45 AB (Rec: 07/14/24 13:11 AB [id number]) Physical Therapy Current Condition Current Condition Evaluation Date 07/14/24 Treatment Diagnosis s/p ankle ORIF; difficulty in walking Onset Date 07/13/24 M3 PT-IP Subjective Start: 07/14/24 12:54 Freq: NEEDED Status: Active Protocol: Document 07/14/24 10:45 AB (Rec: 07/14/24 13:11 AB [id number]) Subjective Physical Therapy Visit Type Type Initial Evaluation Visit Start Time 10:45 Visit Stop Time 11:25 Number of GAME DESIGNER/CREATIVE DIRECTOR Visits 0 Physical Therapy Visit Comments Patient Comments agreeable to do PT; stated that she has PTSD and is afraid of falling M4 PT-IP Mobility and Gait Start: 07/14/24 12:54 Freq: NEEDED Status: Active Protocol: Document 07/14/24 10:45 AB (Rec: 07/14/24 13:11 AB [id number]) PT-Bed Mobility Assessment Rolling Level of Assist Maximal Assistance Supine to Sit Supine to Sit Maximum Assistance,2 Person Assistance,Head of Bed Elevated,Bedrails Scooting Scooting to Edge of Bed Maximum Assistance PT-Transfer Assessment Sit to and From Stand Sit to and from Stand Maximum Assistance,2 Person Assistance,Use of Upper Extremities Equipment Transfer Assistive Device Gait Belt,Sliding Board Orthotic/Prosthetic Devices or Brace: No Transfers Transfer Destination Chair Transfer Technique Lateral Scoot Transfer Ability Level of Assist Maximum Assistance,Total Assistance,2 Person Assistance ,Use of Upper Extremities Comments Mobility Comments pt supine in bed and agreeable to do PT. obtained PLOF and home set up from pt. pt needing to be cleaned up. assisted NAC. pt able to roll L<>R max A and cues and used bed rail. pt completed supine to sit max A x 1-2 and max cues. increase posterior trunk leaning with intial sitting. adjusted pt to EOB and able to sit CGA and cues. educated pt on 50# weight bearing restriction on LLE. pt completed sit<>stand x 2 attempts and pt unable to stand. pt also unable fo maintain TTWB 50#max on LLE. assisted pt with slide board transfer max Ax 2 to total A x 2 and max cues. positioned pt on the chair. call light and table placed within reach. Gait Assessment Comments Gait Comments unable at this time PT-Balance Assessment Sitting Balance and Reactions Static Sitting Balance Ability Good Dynamic Sitting Balance Ability Fair M5 PT-IP Objective Assessments Start: 07/14/24 12:54 Freq: NEEDED Status: Active Protocol: Document 07/14/24 10:45 AB (Rec: 07/14/24 13:11 AB [id number]) Orientation Orientation/Cognition Level of Alertness Alert Orientation Name,Age,Situation Safety Awareness Decreased Safety Awareness Memory Description Short Term Impaired Gross Range of Motion Lower Extremity ROM Assessment Left Impaired Impairments L ankle on a cast Strength Lower Extremity Strength Assessment Bilaterally Impaired Comments Strength Comments RLE: 3+/5 LLE: 3-/5 Sensation Assessment Sensation Gross Sensation WNL Muscle Tone Muscle Tone WNL Yes M6 PT-IP Treatment Start: 07/14/24 12:54 Freq: NEEDED Status: Active Protocol: Document 07/14/24 10:45 AB (Rec: 07/14/24 13:11 AB [id number]) Physical Therapy Treatment Education Education Provided Weight Bearing Status,Safety M7 PT-IP Assessment and Plan Start: 07/14/24 12:54 Freq: NEEDED Status: Active Protocol: Document 07/14/24 10:45 AB (Rec: 07/14/24 13:11 AB [id number]) PT Summary Assessment and Plan Potential Rehabilitation Potential Fair Status of Condition at Evaluation Evolving Summary Impairments Pain,ROM,Strength,Balance, Coordination,Sensation,Tone, Cognition,Bed Mobility, Transfers,Gait,Activity Tolerance Assessment Summary pt is a 68 y/o F s/p L ankle ORIF. pt with 50# weight bearing restriction on LLE. pt needing max A x 2 to total A x 2 for mobilities and unable to maintain weight bearing precaution. pt will require SNF rehab to improve overall strength and function. will continue to assess. Goals Bed Mobility Goal Minimal Assistance Transfer Goal Minimal Assistance,Front Wheeled Walker Gait Goal Minimal Assistance,Front Wheel Walker Gait Distance 20 Other Goals improve bed mobility, transfers, ambulation using fWW 50 ft CGA Days to Meet Goals 10 Frequency of Treatment Frequency Of Treatment Once a Day Treatment Plan Physical Therapy Treatment Plan Bed Mobility Training,Transfer Training,Gait Training, Therapeutic Exercise,Balance Retraining,Post Op Education, Discharge Planning,Hot or Cold Pack,Neuromuscular Re-ed, Coordination Retraining,Manual Therapy Weight Bearing Status Weight Bearing Status Touch Down Weight Bearing Allowed Weight Bearing Amount (enter % LLE: TTWB: 50# max or #) (%) Recommendations To Nursing Amount of Assist Needed Mechanical Lift Discharge Recommendations PT Discharge Recommendations SNF Rehab Transportation Needs at Discharge Wheelchair/Cabulance,Stretcher /Ambulance
--- NOTE | 2024-07-14 11:40 | OT.IP.EVAL ---
Current Diagnoses Displaced trimalleolar fracture of left lower leg, initial encounter for closed fracture (07/13/24) Surgery Performed Operation Date: 07/13/24 13:45 Actual Procedures p ORIF, fracture, ankle, trimalleolar, without posterior lip fixation(Left) - Kayli Fiore MD Past Medical History (Last Reviewed 07/09/24 @ 17:36 by Charis Campuzano DO) Cerebral aneurysm Malignant neoplasm of breast (female), unspecified site (06/25/02) Unspecified essential hypertension (06/25/02) Surgical History (Last Reviewed 07/09/24 @ 17:36 by Charis Campuzano DO) H/O bilateral oophorectomy History of lumpectomy of right breast S/P coil embolization of cerebral aneurysm Occupational Therapy Inpatient Evaluation/Re-Eval M1 PT/OT-IP Prior Functional Status Start: 07/14/24 12:37 Freq: NEEDED Status: Active Protocol: Document 07/14/24 12:37 [facility] (Rec: 07/14/24 12:51 [facility] [id number]) Medical Review Prior Functional Status Communication Independent Mobility and Gait Per pt's prior to falling had been able to get up and transfer on her own. Activities of Daily Living and IADL's Due to RUE humerus fracture 4- 5 months ago, pt's assist her with most ADL needs , and mainly just doing transfers from wc to bed. Social History Household Members spouse Living Arrangements House Number of Floors (Floors) One Floor Number of Stairs To Enter/Railing? NO steps to enter. Home Environment Standard Height Toilet,Walk in Shower Home Equipment Grab Bars Near Toilet M2 OT-IP Current Condition Start: 07/14/24 12:37 Freq: Status: Active Protocol: Document 07/14/24 12:37 [facility] (Rec: 07/14/24 12:51 [facility] [id number]) Occupational Therapy Current Condition Current Condition Evaluation Date 07/14/24 Treatment Diagnosis FAll s/p Left ankle ORIF Diagnosis Onset Date 07/13/24 M3 OT- IP Subjective and Pain Start: 07/14/24 12:37 Freq: Status: Active Protocol: Document 07/14/24 12:37 [facility] (Rec: 07/14/24 12:51 [facility] [id number]) OT- Subjective Occupational Therapy Visit Type Type Initial Evaluation Visit Start Time 11:17 Visit Stop Time 11:40 Occupational Therapy Visit Comments Patient Comments Pt in the process on attempting sliding board transfer with PT when OT came in for OT eval. Patient/Caregiver Goals To get better and now open to going to skilled rehab. OT Pain Assessment Pain When Pain Assessed During Mobility Pain Present Pain Present Pain Reported Location LLE Pain Behaviors Facial Grimacing,Guarding, Holding Area,Wincing M4 OT- IP ADL's Start: 07/14/24 12:37 Freq: Status: Active Protocol: Document 07/14/24 12:37 [facility] (Rec: 07/14/24 12:51 [facility] [id number]) OT [id number] Comments OT Self-Feeding Comments Not at meal time. OT ADL-Grooming Comments OT Grooming Comments Not performed. OT ADL-Oral Care Comments Oral Care Comments Not performed. OT ADL-Dressing General Eval Lower Body Dressing Ability Maximum Assistance Areas Needing Assistance Socks OT ADL-Toileting General Evaluation Toileting Ability Total Assistance Comments OT Toileting Comments Use of purewick at this time. OT ADL-Bathing Comments OT Bathing Comments Sponge bath more appropriate at this time. M5 OT- IP IADL's Start: 07/14/24 12:37 Freq: Status: Active Protocol: Document 07/14/24 12:37 [facility] (Rec: 07/14/24 12:51 [facility] [id number]) OT-Instrumental Activities of Daily Living Home Safety Awareness Home Safety Comments Pt realizes that she will have even more difficulty to assist herself and also that now after fall may be too much for her to handle. Medication Management Medication Management Caregiver Administers Money Management Money Management Caregiver Provides Assistance Meal Preparation Meal Preparation Caregiver Provides Assist Photographic Editor Photographic Editor Caregiver Provides Assist M6 OT- IP Functional Cognition Start: 07/14/24 12:37 Freq: Status: Active Protocol: Document 07/14/24 12:37 [facility] (Rec: 07/14/24 12:51 [facility] [id number]) Cognitive Factors Limiting Selfcare Function Cognitive Ability Level of Alertness Alert Patient Orientation Name,Place,Situation Attention Span Ability Capable of Focused Attention, Capable of Sustained Attention Ability to Follow Commands Able to Follow One Step Commands with Increased Time, Able to Follow One Step Commands with Repetition Cognitive Comments Cognitive Assessment Comments Pt able to follow commands after encouragement. Pt needing simple cues to follow. OT- Vision and Hearing OT- Hearing Assessment OT- Hearing Assessment WFL OT- Vision Assessment Visual Acuity Glasses For Reading Visual Attentiveness WFL Occular Pursuits WFL M7 OT- IP Mobility and Balance Start: 07/14/24 12:37 Freq: Status: Active Protocol: Document 07/14/24 12:37 [facility] (Rec: 07/14/24 12:51 [facility] [id number]) OT- Bed Mobility Assessment Supine to Sit Supine to Sit Assist Maximum Assistance,1 Person Assistance,2 Person Assistance OT-Transfer Assessment Transfers Transfer Ability Maximum Assistance,2 Person Assistance Technique Transfer Destination Bed,Chair Transfer Technique Lateral Scoot Devices Transfer Assistive Devices Gait Belt,Front Wheeled Walker Comments Mobility Comments MAX AX 2 with sliding board transfer, assist balance, and assist to help her scoot over to the recliner on the green pad. OT- Balance Assessment Sitting Balance and Reactions Static Sitting Balance Ability Fair Dynamic Sitting Balance Ability Poor Comments Other Balance Tests/Deviations/Treatment Pt leaning over so therapist : able to get the sliding board underneath her and unable to get back up due to overall weakness especially with her core. M8 OT- IP Objective Assessments Start: 07/14/24 12:37 Freq: Status: Active Protocol: Document 07/14/24 12:37 [facility] (Rec: 07/14/24 12:51 [facility] [id number]) OT Gross Range of Motion Upper Extremity Range of Motion Assessment Bilaterally Impaired ROM Impairments BUE 0-45 shoulder flexion. OT Strength Upper Extremity Strength Assessment Bilaterally Impaired M9 OT- IP Assessment and Plan Start: 07/14/24 12:37 Freq: Status: Active Protocol: Document 07/14/24 12:37 [facility] (Rec: 07/14/24 12:51 [facility] [id number]) OT Summary Assessment and Plan Potential Rehabilitation Potential Good Analytic Complexity at Evaluation Moderate Summary OT Impairments Pain,Strength,Balance, Functional Mobility,Grooming, Dressing,Toileting,Bathing, Toilet Transfers,Shower Transfers,Activity Tolerance Progress Towards Goals Slow Progress due to Pain,Slow Progress due to Medical Issues,Slow Progress due to Activity Tolerance Assessment Summary Pt MOD complexity and main barriers are pain, decreased overall strength, activity tolerance, and needing extensive two person assist for sliding board transfer as pt is 50lbs TDWB for left LE. At this time, too great for pt 's to be able to care for her at home and would benefit from skilled rehab prior to going home. Goals Self-Feeding Goal Independent Grooming Goal Independent Dressing Goal Moderate Assistance Toileting Goal Moderate Assistance Bathing Goal Moderate Assistance Toilet Transfer Goal Moderate Assistance Shower Transfer Goal Moderate Assistance Days to Meet Goals 30 Frequency of Treatment Other frequency 5x/week Treatment Plan OT Treatment Plan ADL Training,Functional Mobility,Patient/Family Education,Discharge Planning Other Treatment Recommendations and Next Transfer to [facility] commode Treatment Focus with MAX AX 2 with use of sliding board. Discharge Recommendations OT Discharge Recommendations SNF Rehab
--- NOTE | 2024-07-14 15:37 | CM.DANOTE ---
Patient is a 68 y/o F admitted s/p fall and ankle fx, post op day one from [facility]. Payer: [employer] [facility] PCP: Yasmin Cartwright Patient is A/O and states she resides at home on [address] with her spouse. She reports a recent history of several falls, breaking her arm several months ago. Patient baseline is WC bound with self transfer from to bed, currently max assist x 2 for transfer and will likely need SNF. Patient prefers to return home but is willing to consider [facility]ulved[facility], as she has a friend also there for SNF. Patient would like to see how she does with PT/OT again before agreeing. Will need f/u BHAVESH Wu Discharge Planning/Care Management CM Discharge Assessment Start: 07/14/24 15:33 Freq: Status: Active Protocol: Document 07/14/24 15:34 KG (Rec: 07/14/24 15:37 KG [id number]) Discharge Planning Assessment Assigned Security Director Nadya Ibanez DPOA/Assigned Designee Name Jackie Wayne Advance Directives? No History Provided By Patient Has Patient been admitted in last 30 Yes days? Prior Living Arrangements House Household Members spouse Type of transporation used prior to Relies on Others admit Independent with ADL's No Is patient alert and oriented? Yes Needs Assistance With Bathing,Grooming,Toileting, Home Chores / Shopping Caregiver for Another No DME Already Rented / Owned Wheelchair,FWW / Walker, Bedside Commode Patient/Family Preference [facility],Home with Home Health Barriers to Discharge Yes Comment Patient 50# wb on LLE d/t ankle fx and currently unable to self transfer from bed to , which is her most recent baseline after prior fall Discharge Plan [facility] Transportation Arrangement Patients will provide transport home to [place] when medically cleared. has priority boarding already If patient plan is SNF: Has PASSR been No completed? Medicare Choice List Provided Yes Medicare choice list reviewed on patient electronic tablet with SNF/ Preference [facility] Sepulveda Has Agency SNF been contacted No Pre-Anesthesia Assessment Start: 07/12/24 13:28 Freq: Status: Active Protocol: Document 07/12/24 13:28 LB (Rec: 07/12/24 13:33 LB [id number]) Pre-Anesthesia Assessment Patient Information Reviewed Via Chart Review Comment no recents labs/EKG identified . Primary Care Provider Hyun Medical Clearance Received Not Applicable Seen Specialist in Last 12 Months Yes Specialist Seen Emergency,Orthopedist Primary Language Brazilian Preferred Language Brazilian Fine Craft Artist Required No Anesthesia Review Requested No Jewel Hole Cornerer No alcohol intake current alcohol intake frequency 0-2 drinks per day Smoking Status Never smoker Substance Use Type does not use History of Falling (Recent or History of Yes ) Comment frequent falls. Hx Sleep Apnea No Currently Taking a Beta Aly Yes: Propranolol 10mg BID. Anti-Coagulant Therapy No Cardiac Testing No Hx Pacemaker/ICD No Cardiac Clearance Received Not Applicable Diabetes No Patient No Lactating No Received a COVID vaccine? Yes Marital Status Lives With spouse Support System Spouse Patient Discharge Plan Description Return Home Do You Have Any Spiritual Beliefs That No May Affect Your HC Choices? Do You Have Any Cultural Practices That No May Affect Your HC Choices? Emergency Contact Name Donavon Wayne - Emergency Contact Advance Directives? No Power of Aids Counselor No
[2024-07-14 19:48] VITALS: BP 107/51; PULSE 80; RESP 20; TEMP 36.7; O2SAT 98
[2024-07-14 20:02] LABS: BUN Creatinine Ratio 23.7 (6-22); Blood Urea Nitrogen 23 mg/dL (7-17); Calcium 8.4 mg/dL (8.4-10.2); Carbon Dioxide 21 mmol/L (22-32); Chloride 95 mmol/L (98-107); Estimated Glomerular Filt Rate > 60 mL/min (>60); Glucose 146 mg/dL (80-110); HEMOLYSIS < 15 (0-50); Potassium 4.4 mmol/L (3.4-5.1); Sodium 123 mmol/L (137-145)
[2024-07-14] MEDS: ALPRAZolam 0.25 MG TABLET PO (21:19)
[2024-07-15 06:39] VITALS: BP 137/71; PULSE 77; RESP 16; TEMP 36.1; O2SAT 94
[2024-07-15] MEDS: PANTOPRAZOLE DR 20 MG TABLET PO (06:45)
[2024-07-15] MEDS: OXYCODONE IR 5 MG TABLET PO ×4 (06:45→18:14)
[2024-07-15] MEDS: IBUPROFEN 400 MG TABLET PO (06:46)
[2024-07-15 08:30] VITALS: BP 129/60; PULSE 73; RESP 14; TEMP 36.7; O2SAT 93
[2024-07-15] MEDS: ASPIRIN EC 81 MG TABLET PO ×2 (08:49→20:37)
[2024-07-15] MEDS: PROPRANOLOL 10 MG TABLET PO ×2 (08:49→20:37)
[2024-07-15] MEDS: ATORVASTATIN 20 MG TABLET 80 MG PO (08:49)
[2024-07-15] MEDS: SERTRALINE 50 MG TABLET 100 MG PO (08:49)
[2024-07-15] MEDS: LOSARTAN 50 MG TABLET PO (08:49)
[2024-07-15] MEDS: AMLODIPINE 5 MG TABLET PO (08:50)
[2024-07-15] MEDS: INFLUENZA HD VACCINE 0.5 ML SYRINGE IM (08:52)
--- NOTE | 2024-07-15 09:37 | P.PN_ITS ---
Subjective Subjective Date Patient Seen: 07/15/24 Time Patient Seen: 09:38 Interval history: Patient's pain is mild. Denies fever or chills. No nausea or vomiting. No shortness of breath or chest pain. Patient does not feel dizzy and lightheaded. Patient is hopeful that she can go home today. Exam Vital Signs (past 8 hours): - 07/15/24 06:39 07/15/24 08:00 07/15/24 08:30 Temperature 96.9 F L 98.1 F Pulse Rate 77 73 Respiratory Rate 16 14 Blood Pressure 137/71 129/60 Pulse Oximetry 94 93 Oxygen Delivery Method Room Air Oxygen Flow Rate 0 Oxygen Delivery Method Room Air Oxygen Flow Rate 0 Narrative Exam Narrative: 68-year-old female resting comfortably in bed in no apparent distress. Motor functions intact bilateral lower extremities. Good capillary refill. Const General: cooperative and comfortable Nutritional Appearance: average body habitus Resp Effort & Inspection: normal respiratory effort and able to speak in complete sentences Objective Labs 07/14/24 05:30 07/14/24 19:30 Labs: Laboratory Results - last 24 hr 07/14/24 19:30 Sodium 123 L Potassium 4.4 Chloride 95 L Carbon Dioxide 21 L BUN 23 H Creatinine 0.97 Estimated GFR > 60 BUN/Creatinine Ratio 23.7 H Glucose 146 H D Calcium 8.4 PFSH Medical History Cerebral aneurysm Unspecified essential hypertension (06/25/02) Malignant neoplasm of breast (female), unspecified site (06/25/02) Surgical History H/O bilateral oophorectomy History of lumpectomy of right breast S/P coil embolization of cerebral aneurysm Family History Brother Cancer Mother Cerebral aneurysm Social History household members: spouse Smoking Status: Never smoker alcohol intake: current Assessment & Plan Post-op Postoperative Procedures: Procedures Operation Date: 07/13/24 13:45 Actual Procedure Side Surgeon p ORIF, fracture, ankle, trimalleolar, without posterior lip fixation Left Kayli Fiore MD Postoperative day: 2 Postoperative plan narrative: Multimodal pain management Aspirin 81 mg b.i.d. for DVT prophylaxis Mobilize with physical therapy, 50 lb weight-bearing max left lower extremity. Keep dressing clean and dry Follow up outpatient Orthopedics 2 weeks Patient currently having difficulty mobilizing and physical therapy is recommending nursing home facility placement Disposition, nursing home facility versus home tomorrow. Quality VTE Deep Vein Thrombosis/Pulmonary Embolism Present on Admission: No
[2024-07-15] MEDS: SODIUM CHLORIDE 1,000 MG TABLET 1000 MG PO ×3 (10:09→20:37)
[2024-07-15] MEDS: ACETAMINOPHEN 325 MG TABLET 650 MG PO ×2 (10:09→18:15)
--- NOTE | 2024-07-15 10:35 | PT.IPTN ---
Current Diagnoses Displaced trimalleolar fracture of left lower leg, initial encounter for closed fracture (07/14/24) Surgery Performed Operation Date: 07/13/24 13:45 Actual Procedures p ORIF, fracture, ankle, trimalleolar, without posterior lip fixation(Left) - Kayli Fiore MD Physical Therapy Treatment Note M2 PT-IP Current Condition Start: 07/14/24 12:54 Freq: NEEDED Status: Active Protocol: Document 07/14/24 10:45 AB (Rec: 07/14/24 13:11 AB [id number]) Physical Therapy Current Condition Current Condition Evaluation Date 07/14/24 Treatment Diagnosis s/p ankle ORIF; difficulty in walking Onset Date 07/13/24 M3 PT-IP Subjective Start: 07/14/24 12:54 Freq: NEEDED Status: Active Protocol: Document 07/15/24 11:04 TS (Rec: 07/15/24 11:20 TS [id number]) Subjective Physical Therapy Visit Type Type Treatment Note Visit Start Time 10:35 Visit Stop Time 11:02 Number of YARN COMBER Visits 1 Physical Therapy Visit Comments Patient Comments Pt found resting in bed. Reports she has developed a lot of weakness over the last few months and recently fx her R shoulder, which continues to make it difficult for her to use her R arm. She would like to go home but is open to rehab if she needs it. Pt is agreeable to PT. M4 PT-IP Mobility and Gait Start: 07/14/24 12:54 Freq: NEEDED Status: Active Protocol: Document 07/15/24 11:04 TS (Rec: 07/15/24 11:20 TS [id number]) PT-Bed Mobility Assessment Supine to Sit Supine to Sit Minimal Assistance,1 Person Assistance,Head of Bed Elevated,Bedrails Scooting Scooting to Edge of Bed Contact Guard Assistance PT-Transfer Assessment Sit to and From Stand Sit to and from Stand Maximum Assistance,2 Person Assistance,Use of Upper Extremities Equipment Transfer Assistive Device Gait Belt,Front Wheeled Walker Orthotic/Prosthetic Devices or Brace: No Transfers Transfer Destination Chair Transfer Technique Stand Pivot Transfer Ability Level of Assist Maximum Assistance,2 Person Assistance Comments Mobility Comments Supine to sit HOB elevated 50D [place] for Le's to EOB and max cues for pushing with BUE's to scoot to EOB, pt requires extra time to complete. STS with FWW MAxA x2, pt cued for PWB 50#'s on LLE. She performs stand pivot MaxA x2 with cues for sequencing, pt could not transfer all the way to the chair and reuqired it brought behind her, she fatigues quickly. Pt performs heel slides, quad sets and glute sets in chair. Pt was left in the chair, all needs met. Gait Assessment Comments Gait Comments Pivot transfer. PT-Balance Assessment Sitting Balance and Reactions Static Sitting Balance Ability Fair Dynamic Sitting Balance Ability Fair Standing Balance and Reactions Static Standing Balance Ability Poor Dynamic Standing Balance Ability Poor Device Used FWW Comments Other Balance Tests/Deviations/Treatment Pt has poor balance in : standing with poor posture. M5 PT-IP Objective Assessments Start: 07/14/24 12:54 Freq: NEEDED Status: Active Protocol: Document 07/14/24 10:45 AB (Rec: 07/14/24 13:11 AB [id number]) Orientation Orientation/Cognition Level of Alertness Alert Orientation Name,Age,Situation Safety Awareness Decreased Safety Awareness Memory Description Short Term Impaired Gross Range of Motion Lower Extremity ROM Assessment Left Impaired Impairments L ankle on a cast Strength Lower Extremity Strength Assessment Bilaterally Impaired Comments Strength Comments RLE: 3+/5 LLE: 3-/5 Sensation Assessment Sensation Gross Sensation WNL Muscle Tone Muscle Tone WNL Yes M6 PT-IP Treatment Start: 07/14/24 12:54 Freq: NEEDED Status: Active Protocol: Document 07/15/24 11:04 TS (Rec: 07/15/24 11:20 TS [id number]) Physical Therapy Treatment Education Education Provided Weight Bearing Status,Safety M7 PT-IP Assessment and Plan Start: 07/14/24 12:54 Freq: NEEDED Status: Active Protocol: Document 07/15/24 11:04 TS (Rec: 07/15/24 11:20 TS [id number]) PT Summary Assessment and Plan Potential Rehabilitation Potential Fair Summary Impairments Pain,ROM,Strength,Balance, Coordination,Sensation,Tone, Cognition,Bed Mobility, Transfers,Gait,Activity Tolerance Progress Towards Goals Slow Progress due to Pain,Slow Progress due to Activity Tolerance Assessment Summary Jackie made some progress with her mobility but is limited by pain and poor activity tolerance. She required decreased assist for bed mobility this session to Lawrence but requires max cues for sequencing. She continues to require MaxA x2 people to stand and for pivot transfer to the chair. PT continues to recommend SNF at this time. Pt is hoping to return home. Goals Bed Mobility Goal Minimal Assistance Transfer Goal Minimal Assistance,Front Wheeled Walker Gait Goal Minimal Assistance,Front Wheel Walker Gait Distance 20 Other Goals improve bed mobility, transfers, ambulation using fWW 50 ft CGA Days to Meet Goals 10 Frequency of Treatment Frequency Of Treatment Once a Day Treatment Plan Physical Therapy Treatment Plan Bed Mobility Training,Transfer Training,Gait Training, Therapeutic Exercise,Balance Retraining,Post Op Education, Discharge Planning,Hot or Cold Pack,Neuromuscular Re-ed, Coordination Retraining,Manual Therapy Weight Bearing Status Weight Bearing Status Touch Down Weight Bearing Allowed Weight Bearing Amount (enter % LLE: TTWB: 50# max or #) (%) Recommendations To Nursing Amount of Assist Needed Mechanical Lift Discharge Recommendations PT Discharge Recommendations SNF Rehab Transportation Needs at Discharge Wheelchair/Cabulance,Stretcher /Ambulance
--- NOTE | 2024-07-15 14:23 | CM.DPC ---
DCP Cont. Reviewed EMR and team rounds for status updates. Sent referral to [facility] for review, they have no beds at this time. Sent referral to [facility] [place], they can accept. Need to call on Fri and confirm date/time/transport.
--- NOTE | 2024-07-15 16:00 | OT.IP.TRT ---
Current Diagnoses Displaced trimalleolar fracture of left lower leg, initial encounter for closed fracture (07/14/24) Surgery Performed Operation Date: 07/13/24 13:45 Actual Procedures p ORIF, fracture, ankle, trimalleolar, without posterior lip fixation(Left) - Kayli Fiore MD Occupational Therapy Treatment Note M2 OT-IP Current Condition Start: 07/14/24 12:37 Freq: Status: Active Protocol: Document 07/14/24 12:37 [facility] (Rec: 07/14/24 12:51 [facility] [id number]) Occupational Therapy Current Condition Current Condition Evaluation Date 07/14/24 Treatment Diagnosis FAll s/p Left ankle ORIF Diagnosis Onset Date 07/13/24 M3 OT- IP Subjective and Pain Start: 07/14/24 12:37 Freq: Status: Active Protocol: Document 07/15/24 16:03 [facility] (Rec: 07/15/24 16:12 [facility] [id number]) OT- Subjective Occupational Therapy Visit Type Type Treatment Note Visit Start Time 15:21 Visit Stop Time 16:00 Occupational Therapy Visit Comments Patient Comments Pt's present for training of transfers. Patient/Caregiver Goals TO get better. Pt realizes that it would be best for her to go to skilled rehab prior to going home. OT Pain Assessment Pain When Pain Assessed During Mobility Pain Present Pain Present Pain Reported M4 OT- IP ADL's Start: 07/14/24 12:37 Freq: Status: Active Protocol: Document 07/14/24 12:37 [facility] (Rec: 07/14/24 12:51 [facility] [id number]) OT [id number] Comments OT Self-Feeding Comments Not at meal time. OT ADL-Grooming Comments OT Grooming Comments Not performed. OT ADL-Oral Care Comments Oral Care Comments Not performed. OT ADL-Dressing General Eval Lower Body Dressing Ability Maximum Assistance Areas Needing Assistance Socks OT ADL-Toileting General Evaluation Toileting Ability Total Assistance Comments OT Toileting Comments Use of purewick at this time. OT ADL-Bathing Comments OT Bathing Comments Sponge bath more appropriate at this time. M5 OT- IP IADL's Start: 07/14/24 12:37 Freq: Status: Active Protocol: Document 07/14/24 12:37 [facility] (Rec: 07/14/24 12:51 [facility] [id number]) OT-Instrumental Activities of Daily Living Home Safety Awareness Home Safety Comments Pt realizes that she will have even more difficulty to assist herself and also that now after fall may be too much for her to handle. Medication Management Medication Management Caregiver Administers Money Management Money Management Caregiver Provides Assistance Meal Preparation Meal Preparation Caregiver Provides Assist Fleet Mechanic Fleet Mechanic Caregiver Provides Assist M6 OT- IP Functional Cognition Start: 07/14/24 12:37 Freq: Status: Active Protocol: Document 07/15/24 16:03 [facility] (Rec: 07/15/24 16:12 [facility] [id number]) Cognitive Factors Limiting Selfcare Function Cognitive Comments Cognitive Assessment Comments Pt able to follow concrete commands for transfer needs. Pt has better insight that pt may need to go to skilled rehab as pt is very weak and that at this time pt needing two person assist to mobilize and only has her to assist at home. M7 OT- IP Mobility and Balance Start: 07/14/24 12:37 Freq: Status: Active Protocol: Document 07/15/24 16:03 [facility] (Rec: 07/15/24 16:12 [facility] [id number]) OT- Bed Mobility Assessment Sit to Supine Sit to Supine Assist Maximum Assistance,2 Person Assistance OT-Transfer Assessment Transfers Transfer Ability Maximum Assistance,2 Person Assistance Technique Transfer Destination Bed,Chair Transfer Technique Lateral Scoot Devices Transfer Assistive Devices Gait Belt,Sliding Board Comments Mobility Comments MAX a1 to help put the sliding board in place. Transfer form recliner to bed which was much higher. Unable to do the transfer with one person assist at this time due to weakness for the pt and pt's precautions of only 50lbs on the LLE . Having to have her assist at her hips to help get her up to the bed on the sliding board. Therefore requiring MAX AX2 with use of the sliding board to get her back to the bed. AT this time not safe for one person to transfer the pt and best to use a mechanical lift at this time. OT- Balance Assessment Sitting Balance and Reactions Static Sitting Balance Ability Fair Dynamic Sitting Balance Ability Poor Comments Other Balance Tests/Deviations/Treatment Pt better with static and ` : dynamic balance today and able to place the sliding board underneath her without her falling over today. Pt still needing MAX AX 2 to help get back to bed with the sliding board. To try with the tomorrow transfer with FWW is able or whether if having to go home will need to get a arian lift or hire assist. M8 OT- IP Objective Assessments Start: 07/14/24 12:37 Freq: Status: Active Protocol: Document 07/14/24 12:37 [facility] (Rec: 07/14/24 12:51 [facility] [id number]) OT Gross Range of Motion Upper Extremity Range of Motion Assessment Bilaterally Impaired ROM Impairments BUE 0-45 shoulder flexion. OT Strength Upper Extremity Strength Assessment Bilaterally Impaired M9 OT- IP Assessment and Plan Start: 07/14/24 12:37 Freq: Status: Active Protocol: Document 07/15/24 16:03 [facility] (Rec: 07/15/24 16:12 [facility] [id number]) OT Summary Assessment and Plan Potential Rehabilitation Potential Good Analytic Complexity at Evaluation Moderate Summary OT Impairments Pain,Strength,Balance, Functional Mobility,Grooming, Dressing,Toileting,Bathing, Toilet Transfers,Shower Transfers,Activity Tolerance Progress Towards Goals Progressing Toward Goals,Slow Progress due to Pain Assessment Summary Pt able to perform sliding board transfer with but still requiring MAX Ax2 at this time. Pt still benefit from skilled rehab to work on her core, overall strengthening so pt's able to safely manage her at home. Goals Self-Feeding Goal Independent Grooming Goal Independent Dressing Goal Moderate Assistance Toileting Goal Moderate Assistance Bathing Goal Moderate Assistance Toilet Transfer Goal Moderate Assistance Shower Transfer Goal Moderate Assistance Days to Meet Goals 30 Frequency of Treatment Other frequency 5x/week Treatment Plan OT Treatment Plan ADL Training,Functional Mobility,Patient/Family Education,Discharge Planning Other Treatment Recommendations and Next Transfer to [facility] arm commode Treatment Focus with MAX AX 2 with use of sliding board. Caregiver training Discharge Recommendations OT Discharge Recommendations SNF Rehab Transportation Needs at Discharge Wheelchair/Cabulance,Stretcher /Ambulance
[2024-07-15] MEDS: ALPRAZolam 0.25 MG TABLET PO (18:14)
[2024-07-15 20:00] VITALS: BP 132/56; PULSE 68; RESP 18; TEMP 37.1; O2SAT 98
[2024-07-16] MEDS: OXYCODONE IR 5 MG TABLET PO ×3 (00:37→20:51)
[2024-07-16] MEDS: IBUPROFEN 400 MG TABLET PO ×3 (00:38→15:41)
[2024-07-16] MEDS: PANTOPRAZOLE DR 20 MG TABLET PO (06:14)
--- NOTE | 2024-07-16 06:56 | P.DS_ITS ---
History of Present Illness History of Present Illness Date Patient Seen: 07/16/24 Time Patient Seen: 06:56 Chief complaint: SDC Narrative: Operative Date/Time/Diagnoses Date of procedure: 07/13/24 Time of procedure: 16:00 Pre-op diagnosis: Comminuted left ankle fracture trimalleolar Post-op diagnosis: same Procedure & Clinicians Procedure: ORIF left ankle, small fragment Arthrex Same procedure as scheduled: Yes Indications: This is a 68-year-old female who fell and noted the acute onset of severe left ankle pain. She is a limited ambulator and does spend a lot of time in a wheelchair. She was seen in the emergency room and noted to have a displaced left ankle fracture. She was brought the operating room for open reduction internal fixation. Surgeon: Kayli Fiore Click Yes if Unassisted: Yes Anesthesia Type: General Operative Notes Findings: Comminuted left ankle fracture, acceptable reduction, soft bone, significant soft tissue injury medial deltoid repaired with a suture anchor Closure Type: primary Specimen(s): none sent Prosthetic devices, grafts, tissues, transplants, or devices: Arthrex lateral locking plate, suture anchor medial deltoid repair Estimated Blood Loss (mL): 100 Blood products transfused: none Tourniquet time (min): 70 Discharge Providers Provider Date of admission: 07/14/24 15:32 Discharge Date: 07/16/24 Primary care physician: AGUSTIN Wade Consults: 07/13/24 18:19 Consult to Discharge Planning Routine Comment: Consult to Occupational Therapy Evaluate & Treat Comment: Physician Instructions: Evaluate and treat Consult to Physical Therapy Evaluate & Treat Comment: Physician Instructions: Evaluate and Treat Discharge provider: Charo Woodson PA-C Summary Hospital Course Discharge Diagnosis: Comminuted left ankle fracture trimalleolar, s/p open reduction and internal fixation Hospital Course: Ms Wayne's hospital course was unremarkable. On the morning of POD# 3, she was feeling well and very much wanted to go home. PT was recommending SNF d/t her continued need for at least 2 person assistance. Pt says she has the help of her and 'a village' of friends at home on [place]. I explained to her that we can transfer her from this hospital to a SNF facility, but she will be unable to transfer from home to SNF if she gets home and realizes she requires too much care. She says she understands and still wants to try. I again encouraged her to please go to SNF at least for the weekend prior to going home to [place], but she insists she will go home. Her will be here later in the morning and she will discuss it with him. I told her I will get everything ready for her to go to SNF, but if she decides to go home instead, I really can't stop her. I communicated my recommendations to her RN. She is eating and voiding without difficulty and her pain is well-controlled with oral medication. Exam Vital Signs (past 8 hours): Oxygen Delivery Method Room Air Oxygen Flow Rate 0 Narrative Exam Narrative: Pt able to wiggle toes, brisk capillary refill. Sensation to touch intact distal and proximal to splint. Objective Labs 07/14/24 05:30 07/14/24 19:30 [facility] Medical History Cerebral aneurysm Unspecified essential hypertension (06/25/02) Malignant neoplasm of breast (female), unspecified site (06/25/02) Surgical History H/O bilateral oophorectomy History of lumpectomy of right breast S/P coil embolization of cerebral aneurysm Family History Brother Cancer Mother Cerebral aneurysm Social History household members: spouse Smoking Status: Never smoker alcohol intake: current Discharge Assessment & Plan Assessment and Plan Assessment: Comminuted left ankle fracture trimalleolar, s/p open reduction and internal fixation Plan of Treatment: Discharge to SNF recommended; per CM notes, it appears that [facility] can likely take her today. She is 50 pounds weightbearing max on her LLE and will need a wheelchair for eventual discharge home. Multimodal pain control, keep dressing clean and dry, ASA 81mg BID x 6 weeks for VTE prophylaxis, f/u w/ Dr Fiore in 2 weeks. Discharge Plan Discharge Plan Patient Disposition: SNF Transfer to: [facility] [place] [facility] Discharge orders & Medications Prescriptions: New alprazolam 0.25 mg tablet 0.25 mg PO BEDTIME PRN (Reason: anxiety) Qty: 14 0RF oxycodone 5 mg tablet 5 mg PO Q6H PRN (Reason: pain (scale score 4-6)) Qty: 20 0RF polyethylene glycol 3350 17 gram Powder In Packet 17 g PO DAILY PRN (Reason: constipation) Qty: 100 0RF ondansetron 4 mg Tablet,Disintegrating 4 mg PO Q6H PRN (Reason: Nausea And Vomiting) Qty: 30 0RF aspirin 81 mg Tablet,Delayed Release (Dr/Ec) 81 mg PO BID Qty: 90 0RF acetaminophen 325 mg Tablet 650 mg PO Q6H PRN (Reason: Fever/Mild Pain (1-3)) Qty: 240 0RF ibuprofen 400 mg Tablet 400 mg PO Q4H PRN (Reason: Pain, Mild (1-3)) Qty: 90 0RF Continued ibuprofen 600 MG tablet 600 mg PO Q6HP PRNQty: 60 0RF sertraline 100 MG tablet 100 mg PO QDAY Qty: 90 1RF propranolol 10 MG tablet 10 mg PO BID Qty: 180 1RF omeprazole 20 MG tablet,delayed release (DR/EC) 20 mg PO QDAY Qty: 90 1RF atorvastatin 80 mg tablet 80 mg PO DAILY amlodipine 5 mg tablet 5 mg PO DAILY albuterol sulfate 90 mcg/actuation HFA aerosol inhaler 2 puff INHALATION Q6H PRN (Reason: wheezing) spironolactone 25 MG tablet 25 mg PO DAILY losartan 100 mg tablet 100 mg PO DAILY alprazolam 0.25 MG tablet 0.25 mg PO QDAYP PRN (Reason: anxiety) Qty: 14 0RF oxycodone 5 mg tablet 5 mg PO Q6H PRN (Reason: pain) Qty: 20 0RF Follow up/Referrals: Yasmin Cartwright ARNP [Primary Care Provider] - Kayli Fiore MD [Physician] - 2 Weeks Diet/Activity/Treatments Diet: Diet as Tolerated Activity: Weightbearing to 50 pounds max on left leg. Wheelchair for ambulation. Skin/Wound/Dressing Care Report to your healthcare provider any signs of infection, such as:: chills, fever, night sweats, unusual drainage and unusual redness Dressing: Keep dressing clean and dry. Call the office if it becomes wet. Visit Report/Discharge Packet Instructions: DI for Open Reduction Internal Fixation Surgery, DI for Prescription Opioid Use Stand Alone Forms: Patient Portal/API, Surgery Discharge Discharge Data Primary Care Provider: Yasmin Cartwright VTE Deep Vein Thrombosis/Pulmonary Embolism Present on Admission: No
[2024-07-16] MEDS: ASPIRIN EC 81 MG TABLET PO ×2 (08:40→20:45)
[2024-07-16] MEDS: SERTRALINE 50 MG TABLET 100 MG PO (08:40)
[2024-07-16] MEDS: ACETAMINOPHEN 325 MG TABLET 650 MG PO ×2 (08:40→15:41)
[2024-07-16] MEDS: SODIUM CHLORIDE 1,000 MG TABLET 1000 MG PO ×3 (08:40→20:46)
[2024-07-16 08:42] VITALS: BP 140/62; PULSE 102
[2024-07-16] MEDS: ATORVASTATIN 20 MG TABLET 80 MG PO (08:42)
[2024-07-16] MEDS: AMLODIPINE 5 MG TABLET PO (08:42)
[2024-07-16] MEDS: PROPRANOLOL 10 MG TABLET PO (08:42)
[2024-07-16] MEDS: LOSARTAN 50 MG TABLET PO (08:42)
[2024-07-16] MEDS: DOCUSATE 100 MG CAPSULE PO ×2 (09:18→20:45)
--- NOTE | 2024-07-16 10:10 | PT.IPTN ---
Current Diagnoses Displaced trimalleolar fracture of left lower leg, initial encounter for closed fracture (07/14/24) Other fracture of left lower leg, initial encounter for closed fracture (07/14/24) Surgery Performed Operation Date: 07/13/24 13:45 Actual Procedures p ORIF, fracture, ankle, trimalleolar, without posterior lip fixation(Left) - Kayli Fiore MD Physical Therapy Treatment Note M2 PT-IP Current Condition Start: 07/14/24 12:54 Freq: NEEDED Status: Active Protocol: Document 07/14/24 10:45 AB (Rec: 07/14/24 13:11 AB [id number]) Physical Therapy Current Condition Current Condition Evaluation Date 07/14/24 Treatment Diagnosis s/p ankle ORIF; difficulty in walking Onset Date 07/13/24 M3 PT-IP Subjective Start: 07/14/24 12:54 Freq: NEEDED Status: Active Protocol: Document 07/16/24 10:51 TS (Rec: 07/16/24 11:12 TS [id number]) Subjective Physical Therapy Visit Type Type Treatment Note Visit Start Time 10:10 Visit Stop Time 11:10 Notes Spouse present for caregiver training Number of SCANNING CLERK Visits 2 Physical Therapy Visit Comments Patient Comments Pt found resting in bed, she is agreeable to PT. M4 PT-IP Mobility and Gait Start: 07/14/24 12:54 Freq: NEEDED Status: Active Protocol: Document 07/16/24 10:51 TS (Rec: 07/16/24 11:12 TS [id number]) PT-Bed Mobility Assessment Supine to Sit Supine to Sit Standby Assistance,1 Person Assistance,Head of Bed Elevated,Bedrails Scooting Scooting to Edge of Bed Standby Assistance PT-Transfer Assessment Sit to and From Stand Sit to and from Stand Maximum Assistance,2 Person Assistance,Use of Upper Extremities Equipment Transfer Assistive Device Gait Belt,Front Wheeled Walker Orthotic/Prosthetic Devices or Brace: No Transfers Transfer Destination Chair,Bedside Commode Transfer Technique Stand Pivot Transfer Ability Level of Assist Maximum Assistance,2 Person Assistance Comments Mobility Comments Supine to sit SBA with HOB elevated 20D, pt uses BUE support to sit EOB. Scale placed under foot for visual of 50# wbering, pt putting aobut 25#'s of weight sitting. STS with assist from spouse MaxA, OT with hand under foot and pt is wbering too much. Stand pivot to chair MaxA x2 with use of FWW, pt fatigues very quickly and does not complete transfer all the way, requires chair directly underneath her. Pt requested to use the commode, STS with FWW and commode placed underneath her. Pt required assist for pericare from OT. STS from commode MAxA x2, chair placed under pt. Pt was left in the chair, all needs met. Gait Assessment Comments Gait Comments Pivot transfer. PT-Balance Assessment Sitting Balance and Reactions Static Sitting Balance Ability Fair Dynamic Sitting Balance Ability Fair Standing Balance and Reactions Static Standing Balance Ability Poor Dynamic Standing Balance Ability Poor Device Used FWW M5 PT-IP Objective Assessments Start: 07/14/24 12:54 Freq: NEEDED Status: Active Protocol: Document 07/14/24 10:45 AB (Rec: 07/14/24 13:11 AB [id number]) Orientation Orientation/Cognition Level of Alertness Alert Orientation Name,Age,Situation Safety Awareness Decreased Safety Awareness Memory Description Short Term Impaired Gross Range of Motion Lower Extremity ROM Assessment Left Impaired Impairments L ankle on a cast Strength Lower Extremity Strength Assessment Bilaterally Impaired Comments Strength Comments RLE: 3+/5 LLE: 3-/5 Sensation Assessment Sensation Gross Sensation WNL Muscle Tone Muscle Tone WNL Yes M6 PT-IP Treatment Start: 07/14/24 12:54 Freq: NEEDED Status: Active Protocol: Document 07/16/24 10:51 TS (Rec: 07/16/24 11:12 TS [id number]) Physical Therapy Treatment Education Education Provided Weight Bearing Status,Safety M7 PT-IP Assessment and Plan Start: 07/14/24 12:54 Freq: NEEDED Status: Active Protocol: Document 07/16/24 10:51 TS (Rec: 07/16/24 11:12 TS [id number]) PT Summary Assessment and Plan Potential Rehabilitation Potential Fair Summary Impairments Pain,ROM,Strength,Balance, Coordination,Sensation,Tone, Cognition,Bed Mobility, Transfers,Gait,Activity Tolerance Progress Towards Goals Slow Progress due to Pain,Slow Progress due to Activity Tolerance Assessment Summary Jackie is making slow progress with ehr mobility. She is SBA for most bed mobility. She requires most assist with STS and pivot transfers to commode /chair with MaxA x2 people. She has some difficulty following instructions and some fear of mobility. Spouse attempted to assist pt with transfer and STS but was unsafe to do with x1PA. PT is recommending SNF. Goals Bed Mobility Goal Minimal Assistance Transfer Goal Minimal Assistance,Front Wheeled Walker Gait Goal Minimal Assistance,Front Wheel Walker Gait Distance 20 Other Goals improve bed mobility, transfers, ambulation using fWW 50 ft CGA Days to Meet Goals 10 Frequency of Treatment Frequency Of Treatment Once a Day Treatment Plan Physical Therapy Treatment Plan Bed Mobility Training,Transfer Training,Gait Training, Therapeutic Exercise,Balance Retraining,Post Op Education, Discharge Planning,Hot or Cold Pack,Neuromuscular Re-ed, Coordination Retraining,Manual Therapy Weight Bearing Status Weight Bearing Status Touch Down Weight Bearing Allowed Weight Bearing Amount (enter % LLE: TTWB: 50# max or #) (%) Recommendations To Nursing Amount of Assist Needed Mechanical Lift Discharge Recommendations PT Discharge Recommendations SNF Rehab Transportation Needs at Discharge Wheelchair/Cabulance
[2024-07-16 10:13] VITALS: O2SAT 96
--- NOTE | 2024-07-16 15:31 | CM.DPC ---
DCP Continued: Reviewed EMR and team rounds for pt?s medical status. 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 Although pt is wheelchair bound, she was able to transfer independently at baseline. Now, she is not able to transfer independently. It is reported pt's only support is at home. 0825: DCP called [facility] (Rosita) and discussed pt. It was confirmed that there was no actual acceptance given yesterday, 07/15. Per Admissions, the DON is still reviewing patient case. 1420: DCP called [facility] and spoke with Rosita at Admissions. It is reported that pt's referral is being denied due to insurance issues ([facility], confirmed that there is not). 1425: DCP called and left a message for [facility], requesting for a call back for referral. [facility] kindly sent referral via [employer]. DCP notified pt RN that pt got denied at [facility], RN reported that she will notify Ortho PA to request DC orders to be cancelled. Plan: Awaiting acceptance at SNF. CM Team will continue to follow for coordination of discharge plans. BEREKET [facility]
[2024-07-16 18:00] VITALS: BP 114/66; PULSE 78; RESP 16; TEMP 36.6; O2SAT 96
[2024-07-16 20:00] VITALS: BP 104/62; PULSE 94; RESP 18; TEMP 36.1; O2SAT 96
[2024-07-16] MEDS: SENNOSIDES 8.6 MG TABLET 17.2 MG PO (20:45)
[2024-07-16] MEDS: ALPRAZolam 0.25 MG TABLET PO (20:46)
[2024-07-17 02:16] VITALS: BP 140/72; PULSE 84; RESP 18; TEMP 36.1; O2SAT 97
--- NOTE | 2024-07-17 06:31 | PM.PNPO.1 ---
Subjective Subjective Date Patient Seen: 07/17/24 Time Patient Seen: 07:38 Interval history: Jackie is lying in bed, awakes easily to voice. Is not excited to go to SNF, but realizes it gives her a break. Pain well-controlled. Exam Vital Signs (past 8 hours): - 07/17/24 02:16 Temperature 97.0 F L Pulse Rate 84 Respiratory Rate 18 Blood Pressure 140/72 Pulse Oximetry 97 Oxygen Flow Rate 0 Oxygen Delivery Method Room Air Oxygen Flow Rate 0 Narrative Exam Narrative: Pt able to wiggle toes. Sensation intact above and below splint. Full strength in hip flexors, quadriceps, hamstrings. Objective Labs 07/14/24 05:30 07/14/24 19:30 [facility] Medical History Cerebral aneurysm Unspecified essential hypertension (06/25/02) Malignant neoplasm of breast (female), unspecified site (06/25/02) Surgical History H/O bilateral oophorectomy History of lumpectomy of right breast S/P coil embolization of cerebral aneurysm Family History Brother Cancer Mother Cerebral aneurysm Social History household members: spouse Smoking Status: Never smoker alcohol intake: current Assessment & Plan Post-op Assessment and plan (1) Ankle fracture, left: Assessment and Plan narrative: 1) Per CM, SNF acceptance is still pending. D/c orders written, rxs and med list printed. From an orthopedic perspective, she can discharge whenever/wherever she is accepted. 2) PT - 50 pounds weightbearing max on her LLE, use wheelchair at home. 3) Multimodal pain control. 4) ASA 81mg BID x 6 weeks for VTE prophylaxis 5) Keep dressing clean and dry, f/u w/ Dr Fiore in 2 weeks. Postoperative Procedures: Procedures Operation Date: 07/13/24 13:45 Actual Procedure Side Surgeon p ORIF, fracture, ankle, trimalleolar, without posterior lip fixation Left Kayli Fiore MD Postoperative day: 4 Quality VTE Deep Vein Thrombosis/Pulmonary Embolism Present on Admission: No
[2024-07-17] MEDS: PANTOPRAZOLE DR 20 MG TABLET PO (06:44)
[2024-07-17] MEDS: OXYCODONE IR 5 MG TABLET PO ×4 (06:46→19:05)
[2024-07-17 08:00] VITALS: BP 144/71; PULSE 88; RESP 17; TEMP 36.3; O2SAT 96
--- NOTE | 2024-07-17 08:06 | PC.NURSE ---
Alert and oriented, follows commands, conversant,able to express concerns and requests. Anticipate SNF today. D/c orders on chart. Ankle clean dry intact. offers no pain c/o presently.
[2024-07-17] MEDS: SODIUM CHLORIDE 1,000 MG TABLET 1000 MG PO ×3 (09:41→20:20)
[2024-07-17] MEDS: DOCUSATE 100 MG CAPSULE PO ×2 (09:41→20:20)
[2024-07-17] MEDS: AMLODIPINE 5 MG TABLET PO (09:41)
[2024-07-17] MEDS: SERTRALINE 50 MG TABLET 100 MG PO (09:41)
[2024-07-17 09:42] VITALS: BP 144/71; PULSE 88
[2024-07-17] MEDS: polyethylene glycoL 3350 17 GM POWD.PACK PO (09:42)
[2024-07-17] MEDS: ASPIRIN EC 81 MG TABLET PO ×2 (09:42→20:20)
[2024-07-17] MEDS: ATORVASTATIN 20 MG TABLET 80 MG PO (09:42)
[2024-07-17] MEDS: PROPRANOLOL 10 MG TABLET PO ×2 (09:42→20:20)
[2024-07-17] MEDS: LOSARTAN 50 MG TABLET PO (09:42)
--- NOTE | 2024-07-17 10:40 | PT.IPTN ---
Current Diagnoses Displaced trimalleolar fracture of left lower leg, initial encounter for closed fracture (07/14/24) Other fracture of left lower leg, initial encounter for closed fracture (07/14/24) Surgery Performed Operation Date: 07/13/24 13:45 Actual Procedures p ORIF, fracture, ankle, trimalleolar, without posterior lip fixation(Left) - Kayli Fiore MD Physical Therapy Treatment Note M2 PT-IP Current Condition Start: 07/14/24 12:54 Freq: NEEDED Status: Active Protocol: Document 07/14/24 10:45 AB (Rec: 07/14/24 13:11 AB [id number]) Physical Therapy Current Condition Current Condition Evaluation Date 07/14/24 Treatment Diagnosis s/p ankle ORIF; difficulty in walking Onset Date 07/13/24 M3 PT-IP Subjective Start: 07/14/24 12:54 Freq: NEEDED Status: Active Protocol: Document 07/17/24 11:06 TS (Rec: 07/17/24 11:17 TS [id number]) Subjective Physical Therapy Visit Type Type Treatment Note Visit Start Time 10:40 Visit Stop Time 11:05 Number of CHAIRMAN & CEO Visits 3 Physical Therapy Visit Comments Patient Comments Pt found resting in bed, spouse in the room, she is agreeable ot PT. M4 PT-IP Mobility and Gait Start: 07/14/24 12:54 Freq: NEEDED Status: Active Protocol: Document 07/17/24 11:06 TS (Rec: 07/17/24 11:17 TS [id number]) PT-Bed Mobility Assessment Supine to Sit Supine to Sit Standby Assistance,1 Person Assistance,Head of Bed Elevated,Bedrails Scooting Scooting to Edge of Bed Standby Assistance PT-Transfer Assessment Sit to and From Stand Sit to and from Stand Moderate Assistance,1 Person Assistance,Use of Upper Extremities Equipment Transfer Assistive Device Gait Belt,Front Wheeled Walker Orthotic/Prosthetic Devices or Brace: No Transfers Transfer Destination Chair Transfer Technique Stand Pivot Transfer Ability Level of Assist Moderate Assistance,1 Person Assistance,Use of Upper Extremities Comments Mobility Comments Supine to sit SBA with HOB elevated, pt requires extra time to complete. Pt understands 50# wbering on LLE with transfers and gait. Shoe don on RLE prior to standing. STS with FWW ModA x1 with FWW . She performs stand pivot to the chair ModA x1, pt cued for TTWB on LLE and maintained during transfer. She was left in the chair, all needs met. Gait Assessment Comments Gait Comments Pivot transfer. PT-Balance Assessment Sitting Balance and Reactions Static Sitting Balance Ability Good Dynamic Sitting Balance Ability Fair Standing Balance and Reactions Static Standing Balance Ability Fair Dynamic Standing Balance Ability Poor Device Used FWW M5 PT-IP Objective Assessments Start: 07/14/24 12:54 Freq: NEEDED Status: Active Protocol: Document 07/14/24 10:45 AB (Rec: 07/14/24 13:11 AB [id number]) Orientation Orientation/Cognition Level of Alertness Alert Orientation Name,Age,Situation Safety Awareness Decreased Safety Awareness Memory Description Short Term Impaired Gross Range of Motion Lower Extremity ROM Assessment Left Impaired Impairments L ankle on a cast Strength Lower Extremity Strength Assessment Bilaterally Impaired Comments Strength Comments RLE: 3+/5 LLE: 3-/5 Sensation Assessment Sensation Gross Sensation WNL Muscle Tone Muscle Tone WNL Yes M6 PT-IP Treatment Start: 07/14/24 12:54 Freq: NEEDED Status: Active Protocol: Document 07/17/24 11:06 TS (Rec: 07/17/24 11:17 TS [id number]) Physical Therapy Treatment Education Education Provided Weight Bearing Status,Safety M7 PT-IP Assessment and Plan Start: 07/14/24 12:54 Freq: NEEDED Status: Active Protocol: Document 07/17/24 11:06 TS (Rec: 07/17/24 11:17 TS [id number]) PT Summary Assessment and Plan Potential Rehabilitation Potential Fair Summary Progress Towards Goals Slow Progress - Other Assessment Summary Jackie made some progress today but she is limited in her mobility. She continues to be SBA for bed mobility. She required decreased assist to ModA x1 with FWW for pivot transfer to the chair. She maintained TTWB on LLE during transfer, pt is PWB of 50# on LLE. She demonstrates some improved tolerance to activity this session. She follows directions well and is motivated to work with PT. PT continues to recommend SNF. Goals Bed Mobility Goal Minimal Assistance Transfer Goal Minimal Assistance,Front Wheeled Walker Gait Goal Minimal Assistance,Front Wheel Walker Gait Distance 20 Other Goals improve bed mobility, transfers, ambulation using fWW 50 ft CGA Days to Meet Goals 10 Frequency of Treatment Frequency Of Treatment Once a Day Treatment Plan Physical Therapy Treatment Plan Bed Mobility Training,Transfer Training,Gait Training, Therapeutic Exercise,Balance Retraining,Post Op Education, Discharge Planning,Hot or Cold Pack,Neuromuscular Re-ed, Coordination Retraining,Manual Therapy Weight Bearing Status Weight Bearing Status Touch Down Weight Bearing Allowed Weight Bearing Amount (enter % LLE: TTWB: 50# max or #) (%) Recommendations To Nursing Amount of Assist Needed 2 Person Assist Discharge Recommendations PT Discharge Recommendations SNF Rehab Transportation Needs at Discharge Wheelchair/Cabulance
[2024-07-17 12:00] VITALS: BP 137/55; PULSE 69; RESP 18; TEMP 36.4; O2SAT 98
--- NOTE | 2024-07-17 13:09 | CM.DPC ---
DCP SNF vs Home Per MD, pt medically stable to d/c to lower level of care once SNF secured but not yet safe for d/c home. Per CUSTOM FEED MILL OPERATOR, pt making progress and not heavy assist but 1-2PA still and not yet safe for home with just spouse yet but able to participate and getting stronger but recommending SNF at this time. [facility]- full [facility]- not currently taking pt's insurance Lidia Chirinos- left msg on admission cell phone. [facility]- faxed referral, left msg confirming referral received and secure emailed to Estefania requesting review. [facility]- can take pt's insurance but very short on female beds and might not have open bed for a few days but willing to review today. SW met bedside with pt and with spouse via phone and updated on above and pt very hopeful to discharge home with spouse but spouse feels SNF likely needed for short stay rehab before home. Pt states she will manage at SNF if needed and SW explained that she cannot just remain at the hospital until she is back to baseline for safe d/c home without working on a lower level of care at SNF to determine if any have open beds and if insurance will approve SNF. Pt acknowledges understanding and agreeable with SW continuing to attempt SNF. SW also faxed referral to [facility] as spouse states he would be willing to drive to [facility] if no [facility]Fs available. Sent referrals to: [facility] but needs MD signature for [facility] due to anxiety and depression. Prisca Valentin MSW
[2024-07-17] MEDS: diphenhydrAMINE 50 MG/ML VIAL IV (14:35)
[2024-07-17] MEDS: ACETAMINOPHEN 325 MG TABLET 650 MG PO (14:36)
[2024-07-17] MEDS: ONDANSETRON 4 MG ODT PO (14:36)
[2024-07-17 18:00] VITALS: BP 138/57; PULSE 67; RESP 18; TEMP 36.4; O2SAT 98
[2024-07-17 20:00] VITALS: BP 133/60; PULSE 76; RESP 18; TEMP 36.9; O2SAT 97
[2024-07-17] MEDS: ALPRAZolam 0.25 MG TABLET PO (20:20)
[2024-07-18 02:00] VITALS: BP 130/72; PULSE 84; RESP 18; TEMP 36.4; O2SAT 97
[2024-07-18] MEDS: PANTOPRAZOLE DR 20 MG TABLET PO (06:51)
[2024-07-18 08:00] VITALS: BP 146/70; PULSE 75; RESP 18; TEMP 36.6; O2SAT 95
[2024-07-18 08:11] VITALS: BP 146/70; PULSE 75
[2024-07-18] MEDS: AMLODIPINE 5 MG TABLET PO (08:11)
[2024-07-18] MEDS: LOSARTAN 50 MG TABLET PO (08:11)
[2024-07-18] MEDS: ATORVASTATIN 20 MG TABLET 80 MG PO (08:11)
[2024-07-18] MEDS: SODIUM CHLORIDE 1,000 MG TABLET 1000 MG PO ×3 (08:13→20:08)
[2024-07-18] MEDS: OXYCODONE IR 5 MG TABLET PO ×3 (08:13→20:08)
[2024-07-18] MEDS: DOCUSATE 100 MG CAPSULE PO ×2 (08:13→20:07)
[2024-07-18] MEDS: ACETAMINOPHEN 325 MG TABLET 650 MG PO ×2 (08:13→16:14)
[2024-07-18] MEDS: SERTRALINE 50 MG TABLET 100 MG PO (08:13)
[2024-07-18] MEDS: ASPIRIN EC 81 MG TABLET PO ×2 (08:13→20:08)
[2024-07-18] MEDS: IBUPROFEN 400 MG TABLET PO ×2 (08:13→16:13)
[2024-07-18] MEDS: PROPRANOLOL 10 MG TABLET PO ×2 (08:14→20:08)
--- NOTE | 2024-07-18 10:58 | CM.DPC ---
DCP Cont. Reviewed EMR and team rounds for status updates. Met with pt and her spouse to discuss plan for SNF rehab tomorrow. She and spouse have changed their minds, and she would now like to d/c home with Ja TREVINO and OP PT on . Will notify Ja on Friday am of her d/c.
[2024-07-18 12:00] VITALS: BP 121/48; PULSE 67; RESP 18; TEMP 36.4; O2SAT 96
[2024-07-18 14:00] VITALS: BP 133/55; PULSE 67; RESP 15; TEMP 36.5; O2SAT 98
--- NOTE | 2024-07-18 14:03 | PT.IPTN ---
Current Diagnoses Displaced trimalleolar fracture of left lower leg, initial encounter for closed fracture (07/14/24) Other fracture of left lower leg, initial encounter for closed fracture (07/14/24) Surgery Performed Operation Date: 07/13/24 13:45 Actual Procedures p ORIF, fracture, ankle, trimalleolar, without posterior lip fixation(Left) - Kayli Fiore MD Physical Therapy Treatment Note M2 PT-IP Current Condition Start: 07/14/24 12:54 Freq: NEEDED Status: Active Protocol: Document 07/14/24 10:45 AB (Rec: 07/14/24 13:11 AB [id number]) Physical Therapy Current Condition Current Condition Evaluation Date 07/14/24 Treatment Diagnosis s/p ankle ORIF; difficulty in walking Onset Date 07/13/24 M3 PT-IP Subjective Start: 07/14/24 12:54 Freq: NEEDED Status: Active Protocol: Document 07/18/24 13:41 MB (Rec: 07/18/24 14:03 MB [id number]) Subjective Physical Therapy Visit Type Type Treatment Note Visit Start Time 13:41 Visit Stop Time 13:54 Number of TRIPLE AIR VALVE TESTER Visits 0 Physical Therapy Visit Comments Patient Comments Pt hook lying upon arrival and agreeable to PT. I was wondering if I was going to get out of having therapy today. M4 PT-IP Mobility and Gait Start: 07/14/24 12:54 Freq: NEEDED Status: Active Protocol: Document 07/18/24 13:41 MB (Rec: 07/18/24 14:03 MB [id number]) PT-Bed Mobility Assessment Supine to Sit Supine to Sit Standby Assistance,1 Person Assistance,Head of Bed Elevated,Bedrails Scooting Scooting to Edge of Bed Standby Assistance PT-Transfer Assessment Sit to and From Stand Sit to and from Stand Moderate Assistance,1 Person Assistance,Use of Upper Extremities Equipment Transfer Assistive Device Gait Belt,Front Wheeled Walker Orthotic/Prosthetic Devices or Brace: No Transfers Transfer Destination Chair Transfer Ability Level of Assist Moderate Assistance,1 Person Assistance,Use of Upper Extremities Comments Mobility Comments PT ed pt that order is for TDWB LLE. Pt tends to put full weight on left foot with STS. Cues to push through arms and to perform step-to stepping and limiting weight on LLE Gait Assessment Gait Gait Assistance Required: Moderate Assistance,1 Person Assist Distance (Feet) 2 Able to Maintain Weight Bearing Status Yes During Gait Assistive Devices Assistive Device Gait Belt,Front Wheeled Walker Orthotic/Prosthetic Devices or Brace: No Gait Deviations General Gait Pattern Antalgic,Decreased Stride Length,Decreased Feet Clearance,Flexed Trunk,Step-to Gait Factors Limiting Gait Function Factors Limiting Gait Function Decreased Activity Tolerance, Decreased Strength,Difficulty Following Directions, Incoordination,Limited Range of Motion,Pain,Poor Balance, Poor Safety Awareness Comments Gait Comments Initiated step training in TDWB LLE, pt states she has been able to use her right arm after fracture 3 months ago as far as WB through arm PT-Balance Assessment Sitting Balance and Reactions Static Sitting Balance Ability Good Dynamic Sitting Balance Ability Fair Standing Balance and Reactions Static Standing Balance Ability Fair Dynamic Standing Balance Ability Poor Device Used FWW M5 PT-IP Objective Assessments Start: 07/14/24 12:54 Freq: NEEDED Status: Active Protocol: Document 07/14/24 10:45 AB (Rec: 07/14/24 13:11 AB [id number]) Orientation Orientation/Cognition Level of Alertness Alert Orientation Name,Age,Situation Safety Awareness Decreased Safety Awareness Memory Description Short Term Impaired Gross Range of Motion Lower Extremity ROM Assessment Left Impaired Impairments L ankle on a cast Strength Lower Extremity Strength Assessment Bilaterally Impaired Comments Strength Comments RLE: 3+/5 LLE: 3-/5 Sensation Assessment Sensation Gross Sensation WNL Muscle Tone Muscle Tone WNL Yes M6 PT-IP Treatment Start: 07/14/24 12:54 Freq: NEEDED Status: Active Protocol: Document 07/18/24 13:41 MB (Rec: 07/18/24 14:03 MB [id number]) Physical Therapy Treatment Education Education Provided Weight Bearing Status,Safety M7 PT-IP Assessment and Plan Start: 07/14/24 12:54 Freq: NEEDED Status: Active Protocol: Document 07/18/24 13:41 MB (Rec: 07/18/24 14:03 MB [id number]) PT Summary Assessment and Plan Potential Rehabilitation Potential Fair Status of Condition at Evaluation Evolving Summary Impairments Pain,ROM,Strength,Balance, Coordination,Cognition,Bed Mobility,Transfers,Gait, Activity Tolerance Progress Towards Goals Slow Progress - Other Assessment Summary Pt reports multiple falls over the past few months including two falls with fractures: right shoulder three months ago and left ankle recently as assisted her. Per rounds, pt and wish for her to d/c back home despite this recent history. Pt has trouble following commands for mobility and TDWB LLE. She con't to be at high risk for falls and further injury. SNF is best option for pt. Goals Bed Mobility Goal Independent Transfer Goal Standby Assistance,Front Wheeled Walker Gait Goal Standby Assistance,Front Wheel Walker Gait Distance 20 Days to Meet Goals 5 Frequency of Treatment Frequency Of Treatment Once a Day Treatment Plan Physical Therapy Treatment Plan Bed Mobility Training,Transfer Training,Gait Training, Therapeutic Exercise,Balance Retraining,Post Op Education, Discharge Planning,Hot or Cold Pack,Neuromuscular Re-ed, Coordination Retraining,Manual Therapy Weight Bearing Status Weight Bearing Status Touch Down Weight Bearing Allowed Weight Bearing Amount (enter % TDWB LLE per order and op or #) (%) notes states no more than 50 lbs Recommendations To Nursing Amount of Assist Needed 2 Person Assist Discharge Recommendations PT Discharge Recommendations SNF Rehab Transportation Needs at Discharge Wheelchair/Cabulance
--- NOTE | 2024-07-18 14:16 | P.PN_ITS ---
Subjective Subjective Date Patient Seen: 07/18/24 Time Patient Seen: 14:16 Interval history: Pt sitting up in chair, in good spirits. Per CM note, pt and have again changed their minds re disposition and would now like to go home with home health. Plan is home tomorrow w/ [facility] Per pt, this is the decision that makes the most sense to her, as she wants to be back in her normal environment and have a chance to adjust. Exam Vital Signs (past 8 hours): - 07/18/24 08:00 07/18/24 08:11 07/18/24 12:00 Temperature 97.9 F 97.6 F Pulse Rate 75 75 67 Respiratory Rate 18 18 Blood Pressure 146/70 H 146/70 H 121/48 L Pulse Oximetry 95 96 Oxygen Flow Rate 0 0 Oxygen Delivery Method Room Air Oxygen Flow Rate 0 Narrative Exam Narrative: Pt able to wiggle toes. Sensation intact above and below splint. Full strength in hip flexors, quadriceps, hamstrings. Skin intact along edges of splint and there does not appear to be any areas of significant rubbing. Objective Labs 07/14/24 05:30 07/14/24 19:30 [facility] Medical History Cerebral aneurysm Unspecified essential hypertension (06/25/02) Malignant neoplasm of breast (female), unspecified site (06/25/02) Surgical History H/O bilateral oophorectomy History of lumpectomy of right breast S/P coil embolization of cerebral aneurysm Family History Brother Cancer Mother Cerebral aneurysm Social History household members: spouse Smoking Status: Never smoker alcohol intake: current Assessment & Plan Post-op Assessment and plan (1) Ankle fracture, left: Assessment and Plan narrative: 1) Pt lives on [address] and is planning to go home tomorrow w/ home health. D/c orders written, rxs sent to [facility]. Despite PTs recommendations for SNF placement, I feel like if the patient and her spouse are comfortable with this decision, then ultimately, their wishes should be respected. I certainly feel better about sending her home on a Friday - when there is better availability of contact with healthcare providers if needed - than on Friday, which is when she wanted to go home. 2) PT - 50 pounds weightbearing max on her LLE, use wheelchair at home. 3) Multimodal pain control. 4) ASA 81mg BID x 6 weeks for VTE prophylaxis 5) Keep dressing clean and dry, f/u w/ Dr Fiore in 2 weeks. Postoperative Procedures: Procedures Operation Date: 07/13/24 13:45 Actual Procedure Side Surgeon p ORIF, fracture, ankle, trimalleolar, without posterior lip fixation Left Kayli Fiore MD Postoperative day: 5 Quality VTE Deep Vein Thrombosis/Pulmonary Embolism Present on Admission: No
[2024-07-18 20:00] VITALS: BP 143/60; PULSE 74; RESP 16; TEMP 36.6; O2SAT 98
[2024-07-18] MEDS: ALPRAZolam 0.25 MG TABLET PO (20:08)
[2024-07-19 02:00] VITALS: BP 151/68; PULSE 72; RESP 15; TEMP 36.4; O2SAT 93
[2024-07-19] MEDS: OXYCODONE IR 5 MG TABLET PO ×2 (02:28→06:26)
[2024-07-19] MEDS: PANTOPRAZOLE DR 20 MG TABLET PO (06:26)
[2024-07-19 08:00] VITALS: BP 154/68; PULSE 67; RESP 15; TEMP 36.2; O2SAT 94
[2024-07-19] MEDS: ASPIRIN EC 81 MG TABLET PO ×2 (09:27→20:23)
[2024-07-19] MEDS: ATORVASTATIN 20 MG TABLET 80 MG PO (09:27)
[2024-07-19] MEDS: SERTRALINE 50 MG TABLET 100 MG PO (09:28)
[2024-07-19] MEDS: PROPRANOLOL 10 MG TABLET PO ×2 (09:28→20:24)
[2024-07-19] MEDS: SODIUM CHLORIDE 1,000 MG TABLET 1000 MG PO ×2 (09:28→20:23)
[2024-07-19] MEDS: DOCUSATE 100 MG CAPSULE PO ×2 (09:28→20:23)
[2024-07-19] MEDS: AMLODIPINE 5 MG TABLET PO (09:29)
[2024-07-19] MEDS: LOSARTAN 50 MG TABLET PO (09:29)
--- NOTE | 2024-07-19 11:46 | CM.DPC ---
DCP SNF planning Per Ortho, pt medically stable to discharge home with HH today per discussion with pt and spouse yesterday and discharge orders placed. SW confirmed that [facility] received the new referral but no F2F or HH orders placed yet and they might not have RN or PT start of care until 07/27/24 on [place]. SW met bedside with pt and spouse and pt initially agreeable with d/c home today but spouse now requesting follow up with the SNFs referrals that had been placed as he has concerns with meeting pt's care needs at d/c without SNF first. Spouse again confirms he would even be agreeable with [place] [facility]. Placed calls to following referred SNFs from Friday: [facility]- will review but regular admission staff on vacation and beds are full so unclear if auth could be obtained in a timely manner. [facility]- left detailed msg [facility]- reviewing currently [facility]- will go look at fax machine to confirm if they received. [facility]- reviewing and can accept if pt agreeable to hold Dupixent while at SNF [facility]- can accept if pt willing to hold Dupixent while at SNF. SW updated pt and spouse bedside and preference is closest location and therefore [facility]. Spouse aware that transport likely will be provided but agreeable to be bedside tomorrow Tues by 1000 in case transport needed and spouse will provide. [facility] will submit for [facility] [employer] auth now. SW discussed clearly that pending insurance auth, pt will have to discharge by tomorrow Tues 108 either to SNF if insurance approves, private pay SNF if insurance denies, or home with HH as pt medically stable for lower level of care. Both pt and spouse acknowledge understanding and are agreeable to d/c home tomorrow if SNF auth denied. PAS[facility] done. SW updated RN and train starter. Plan: Patient to d/c to [facility] tomorrow Tues 108 once [employer] auth obtained and if auth denied then pt and spouse agreeable to home with [facility] but would need F2F and orders. Prisca Valentin, [employer]PERATOR
[2024-07-19] MEDS: polyethylene glycoL 3350 17 GM POWD.PACK PO (13:13)
--- NOTE | 2024-07-19 13:19 | P.PN_ITS ---
Subjective Subjective Date Patient Seen: 07/19/24 Time Patient Seen: 13:29 Interval history: Jackie was using the commode when I attempted to see her today. Per CM note from today, pt has again changed her mind and now wants to go to SNF. Exam Vital Signs (past 8 hours): - 07/19/24 08:00 Temperature 97.2 F L Pulse Rate 67 Respiratory Rate 15 Blood Pressure 154/68 H Pulse Oximetry 94 Oxygen Flow Rate 0 Oxygen Delivery Method Room Air Oxygen Flow Rate 0 Narrative Exam Narrative: Deferred; pt using commode. Objective Labs 07/14/24 05:30 07/14/24 19:30 [facility] Medical History Cerebral aneurysm Unspecified essential hypertension (06/25/02) Malignant neoplasm of breast (female), unspecified site (06/25/02) Surgical History H/O bilateral oophorectomy History of lumpectomy of right breast S/P coil embolization of cerebral aneurysm Family History Brother Cancer Mother Cerebral aneurysm Social History household members: spouse Smoking Status: Never smoker alcohol intake: current Assessment & Plan Post-op Assessment and plan (1) Ankle fracture, left: Assessment and Plan narrative: 1) Per most recent CM note, pt now going to SNF tomorrow. Rxs and med list have been printed. Rxs have also been sent to [facility] in the even that pt changes her mind again tomorrow. t 2) PT - 50 pounds weightbearing max on her LLE, use wheelchair at home. 3) Multimodal pain control. 4) ASA 81mg BID x 6 weeks for VTE prophylaxis 5) Keep dressing clean and dry, f/u w/ Dr Fiore in 1 week. Postoperative Procedures: Procedures Operation Date: 07/13/24 13:45 Actual Procedure Side Surgeon p ORIF, fracture, ankle, trimalleolar, without posterior lip fixation Left Kayli Fiore MD Postoperative day: 6 Quality VTE Deep Vein Thrombosis/Pulmonary Embolism Present on Admission: No
--- NOTE | 2024-07-19 13:42 | DIET.CONS ---
Dietary Consultation Note Admission Date: 07/14/2024 15:32 Assessment: 68 y F admitted for ankle fracture. Nutrition screened for LOS. EMR reviewed. Average recorded PO intakes 70%. DFM reviewed for meal composition. No recent weight loss. Recorded PO intakes were at 100% and have decreased to 25-75% last 2 days. Will add ONS to dinner tray tonight to support intakes. Will monitor po intakes. Ht: 167.64 cm Wt: 68.039 kg (07/09/24) BMI: 24.2 UBW: 68.946 kg on 09/12/23 Last BM: 07/17/24 (07/17/24 15:00) MNA: 14 Mac Score: 18 Diet: 07/13/24 Dinner General (Regular) Diet Diet Modifications: Food Texture: Level 7 - Regular Liquid Consistency: Level 0 - Thin Nutrition Percent Meal Consumed 25% 07/18/24 18:00 Percent Meal Consumed 75% 07/18/24 09:00 Percent Meal Consumed 30 07/17/24 18:00 Labs: RBC 2.27 X10^6/uL (4.0-5.2) L 07/14/24 05:30 Hgb 8.5 g/dL (12.0-16.0) L 07/14/24 05:30 Hct 24.6 % (36-46) L 07/14/24 05:30 Creatinine 0.97 mg/dL (0.52-1.04) 07/14/24 19:30 Electronically Signed by: Bryanna Garcia 07/19/24 13:42 Clinical Dietitian [address] [address]
[2024-07-19 14:00] VITALS: BP 153/52; PULSE 71; RESP 16; TEMP 36.7; O2SAT 97
[2024-07-19 18:34] LABS: BUN Creatinine Ratio 18.8 (6-22); Blood Urea Nitrogen 15 mg/dL (7-17); Carbon Dioxide 23 mmol/L (22-32); Chloride 104 mmol/L (98-107); Estimated Glomerular Filt Rate > 60 mL/min (>60); Glucose 130 mg/dL (80-110); Potassium 4.1 mmol/L (3.4-5.1); Sodium 134 mmol/L (137-145)
[2024-07-19 18:35] LABS: HEMOLYSIS 54 (0-50)
[2024-07-19 20:00] VITALS: BP 139/41; PULSE 81; RESP 20; TEMP 36.1; O2SAT 95
[2024-07-19] MEDS: ALPRAZolam 0.25 MG TABLET PO (20:23)
[2024-07-19] MEDS: IBUPROFEN 400 MG TABLET PO (20:24)
[2024-07-20 02:00] VITALS: BP 146/62; PULSE 71; RESP 24; TEMP 36.6; O2SAT 92
[2024-07-20] MEDS: PANTOPRAZOLE DR 20 MG TABLET PO (06:49)
[2024-07-20] MEDS: IBUPROFEN 400 MG TABLET PO (06:53)
--- NOTE | 2024-07-20 07:34 | PM.DS.1 ---
History of Present Illness History of Present Illness Date Patient Seen: 07/20/24 Time Patient Seen: 07:30 Chief complaint: SDC Narrative: Operative Date/Time/Diagnoses Date of procedure: 07/13/24 Time of procedure: 16:00 Pre-op diagnosis: Comminuted left ankle fracture trimalleolar Post-op diagnosis: same Procedure & Clinicians Procedure: ORIF left ankle, small fragment Arthrex Same procedure as scheduled: Yes Indications: This is a 68-year-old female who fell and noted the acute onset of severe left ankle pain. She is a limited ambulator and does spend a lot of time in a wheelchair. She was seen in the emergency room and noted to have a displaced left ankle fracture. She was brought the operating room for open reduction internal fixation. Surgeon: Kayli Fiore Click Yes if Unassisted: Yes Anesthesia Type: General Operative Notes Findings: Comminuted left ankle fracture, acceptable reduction, soft bone, significant soft tissue injury medial deltoid repaired with a suture anchor Closure Type: primary Specimen(s): none sent Prosthetic devices, grafts, tissues, transplants, or devices: Arthrex lateral locking plate, suture anchor medial deltoid repair Estimated Blood Loss (mL): 100 Blood products transfused: none Tourniquet time (min): 70 Discharge Providers Provider Date of admission: 07/14/24 15:32 Discharge Date: 07/20/24 Primary care physician: AGUSTIN Wade Consults: 07/13/24 18:19 Consult to Discharge Planning Routine Comment: Consult to Occupational Therapy Evaluate & Treat Comment: Physician Instructions: Evaluate and treat Consult to Physical Therapy Evaluate & Treat Comment: Physician Instructions: Evaluate and Treat Discharge provider: Carlitos Roe PA-C Summary Hospital Course Discharge Diagnosis: Comminuted left ankle fracture trimalleolar, s/p open reduction and internal fixation Hospital Course: Ms Wayne's hospital course was unremarkable. Ambulation with PT. Recommends SNF Multi-modal pain control. Status at Discharge Cognitive/behavioral status at discharge: oriented Functional status at discharge: uses cane/walker Time Spent with Patient Time spent: Less than 30 minutes Exam Vital Signs (past 8 hours): - 07/20/24 02:00 Temperature 97.9 F Pulse Rate 71 Respiratory Rate 24 Blood Pressure 146/62 H Pulse Oximetry 92 Oxygen Flow Rate 0 Oxygen Delivery Method Room Air Oxygen Flow Rate 0 Narrative Exam Narrative: Pt able to wiggle toes, brisk capillary refill. Sensation to touch intact distal and proximal to splint. Objective Labs 07/14/24 05:30 07/19/24 18:03 Labs: Laboratory Results - last 24 hr 07/19/24 18:03 Sodium 134 L D Potassium 4.1 Chloride 104 Carbon Dioxide 23 BUN 15 Creatinine 0.80 Estimated GFR > 60 BUN/Creatinine Ratio 18.8 Glucose 130 H Calcium 9.0 PFSH Medical History Cerebral aneurysm Unspecified essential hypertension (06/25/02) Malignant neoplasm of breast (female), unspecified site (06/25/02) Surgical History H/O bilateral oophorectomy History of lumpectomy of right breast S/P coil embolization of cerebral aneurysm Family History Brother Cancer Mother Cerebral aneurysm Social History household members: spouse Smoking Status: Never smoker alcohol intake: current Discharge Assessment & Plan Assessment and Plan Assessment: Comminuted left ankle fracture trimalleolar, s/p open reduction and internal fixation Plan of Treatment: Discharge to SNF recommended. She is 50 pounds weightbearing max on her LLE and will need a wheelchair for eventual discharge home. Multimodal pain control, keep dressing clean and dry, ASA 81mg BID x 6 weeks for VTE prophylaxis, f/u w/ Dr Fiore in 2 weeks. Discharge Plan Discharge Plan Patient Disposition: SNF Discharge orders & Medications Prescriptions: New aspirin 81 mg Tablet,Delayed Release (Dr/Ec) 81 mg PO BID Qty: 90 0RF ondansetron 4 mg Tablet,Disintegrating 4 mg PO Q6H PRN (Reason: Nausea And Vomiting) Qty: 30 0RF polyethylene glycol 3350 17 gram Powder In Packet 17 g PO DAILY PRN (Reason: constipation) Qty: 100 0RF acetaminophen 325 mg Tablet 650 mg PO Q6H PRN (Reason: Fever/Mild Pain (1-3)) Qty: 240 0RF ibuprofen 400 mg Tablet 400 mg PO Q4H PRN (Reason: Pain, Mild (1-3)) Qty: 90 0RF alprazolam 0.25 mg tablet 0.25 mg PO BEDTIME PRN (Reason: anxiety) Qty: 14 0RF oxycodone 5 mg tablet 5 mg PO Q6H PRN (Reason: pain (scale score 4-6)) Qty: 20 0RF oxycodone 5 mg tablet 5 mg PO Q6H PRN (Reason: pain (scale score 4-6)) Qty: 30 0RF Continued ibuprofen 600 MG tablet 600 mg PO Q6HP PRNQty: 60 0RF sertraline 100 MG tablet 100 mg PO QDAY Qty: 90 1RF propranolol 10 MG tablet 10 mg PO BID Qty: 180 1RF omeprazole 20 MG tablet,delayed release (DR/EC) 20 mg PO QDAY Qty: 90 1RF atorvastatin 80 mg tablet 80 mg PO DAILY amlodipine 5 mg tablet 5 mg PO DAILY albuterol sulfate 90 mcg/actuation HFA aerosol inhaler 2 puff INHALATION Q6H PRN (Reason: wheezing) spironolactone 25 MG tablet 25 mg PO DAILY losartan 100 mg tablet 100 mg PO DAILY alprazolam 0.25 MG tablet 0.25 mg PO QDAYP PRN (Reason: anxiety) Qty: 14 0RF oxycodone 5 mg tablet 5 mg PO Q6H PRN (Reason: pain) Qty: 20 0RF Follow up/Referrals: Yasmin Cartwright ARNP [Primary Care Provider] - Kayli Fiore MD [Physician] - 1 Week Diet/Activity/Treatments Diet: Diet as Tolerated Activity: Weightbearing to 50 pounds max on left leg. Wheelchair for ambulation. Skin/Wound/Dressing Care Report to your healthcare provider any signs of infection, such as:: chills, fever, night sweats, unusual drainage and unusual redness Dressing: Keep dressing clean and dry. Call the office if it becomes wet. [facility] Reason for rehabilitation: Post-operative therapy Rehab type: Physical therapy and Occupational therapy Visit Report/Discharge Packet Instructions: DI for Open Reduction Internal Fixation Surgery, DI for Prescription Opioid Use Stand Alone Forms: Patient Portal/API, Surgery Discharge Discharge Data Primary Care Provider: Yasmin Cartwright VTE Deep Vein Thrombosis/Pulmonary Embolism Present on Admission: No
[2024-07-20 07:50] VITALS: BP 148/62; PULSE 67; RESP 20; TEMP 36.4; O2SAT 93
--- NOTE | 2024-07-20 07:56 | PC.NURSE ---
Pt alert and oriented, follows commands, offers no overt c/o pain or other issues. Set up for B'fast.
--- NOTE | 2024-07-20 08:27 | CM.DPC ---
DCP Cont. Reviewed EMR and team rounds for status updates. Pt has been medically cleared for d/c to SNF rehab, [facility]- will transport her at 12:00pm today, will fax d/c clinicals and [facility]. No further needs indicated at this time.
[2024-07-20] MEDS: PROPRANOLOL 10 MG TABLET PO (09:02)
[2024-07-20 09:03] VITALS: BP 148/62; PULSE 67
[2024-07-20] MEDS: LOSARTAN 50 MG TABLET PO (09:03)
[2024-07-20] MEDS: ATORVASTATIN 20 MG TABLET 80 MG PO (09:03)
[2024-07-20] MEDS: AMLODIPINE 5 MG TABLET PO (09:04)
[2024-07-20] MEDS: SERTRALINE 50 MG TABLET 100 MG PO (09:04)
[2024-07-20] MEDS: ASPIRIN EC 81 MG TABLET PO (09:04)
[2024-07-20] MEDS: SODIUM CHLORIDE 1,000 MG TABLET 1000 MG PO (09:05)
--- NOTE | 2024-07-20 11:23 | PC.NURSE ---
Assuming care of patient at this time from John RODRIGUEZ. Report was called to [phone] per John, and transport arriving shortly at noon. Patient sitting up in bed, denies needs at this time. at bedside packing up her belongings. Paperwork packet was prepared.
== END 2024-07-20 12:19 | DRG 493 ==
LOC: OR 07-15 07:51 → AC 07-15 07:51
PROVIDERS: Orthopaedic Surgery; Physician Assistant Surgical; Admitting Provider Orthopaedic Surgery; Family Provider Family Medicine; PCP Nurse Practitioner Family; Referring Provider Orthopaedic Surgery; Visit Provider Orthopaedic Surgery
PROC: 0QSH04Z Reposition Left Tibia with Internal Fixation Device, Open Approach (ICD-10-PCS; principal; 2024-07-13 13:45)
DX: S82.852A Displaced trimalleolar fracture of left lower leg, initial encounter for closed fracture (principal); E87.1 Hypo-osmolality and hyponatremia; I10 Essential (primary) hypertension; K21.9 Gastro-esophageal reflux disease without esophagitis; J45.909 Unspecified asthma, uncomplicated; W18.30XA Fall on same level, unspecified, initial encounter; Z86.79 Personal history of other diseases of the circulatory system; Z23 Encounter for immunization
CPT/HCPCS: 36415; 80048; 85025; 90471; 90662; 97162; 97166; 97530; 97535; C1713; J0690; J1100; J1200; J2405; J2704; J3010

== ENCOUNTER 2025-04-30 07:19 | Inpatient (IN) | payer MEDICARE, SELFPAY ==
[2024-07-13 18:19] VITALS: BMI 24.2
[2025-04-30] VITALS (12 sets, daily range): BP systolic 97–116; BP diastolic 47–67; PULSE 65–86; RESP 16–33; TEMP 36.2–36.8; O2SAT 92–100; BMI 22.6
--- NOTE | 2025-04-30 07:47 | EKG_ITS ---
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
--- NOTE | 2025-04-30 07:57 | ED.RECABL ---
HPI - Recheck/Abnormal Lab/Rx General Chief Complaint: Recheck/Abnormal Lab/Rx Stated Complaint: 4am call of Low level magnesium and calcium Time Seen by Provider: 04/30/25 07:27 History of Present Illness HPI narrative: 69-year-old female with a history of diarrhea for the past 9 months was woken up around 4:00 a.m. by her PCP and told to go to the ER due to having extremely low magnesium and calcium levels. The patient does feel fatigued and slightly short of breath but no other symptoms. Patient does have a history of asthma and eczema and is on Dupixent as well every 2 weeks. Related Data Home Medications ?Medication ?Instructions ?Recorded ?Confirmed albuterol sulfate 90 mcg/actuation 2 puff inhalation Q6H PRN wheezing 07/13/24 04/30/25 aerosol inhaler amlodipine 5 mg tablet 5 mg PO DAILY 07/13/24 04/30/25 atorvastatin 80 mg tablet 80 mg PO DAILY 07/13/24 04/30/25 spironolactone 25 mg tablet 25 mg PO DAILY 07/13/24 04/30/25 losartan 100 mg tablet 100 mg PO DAILY 07/15/24 04/30/25 dupilumab 300 mg/2 mL subcutaneous 300 mg SUBCUT Q2W 04/30/25 04/30/25 syringe (Dupixent) escitalopram oxalate 10 mg tablet 10 mg PO DAILY 04/30/25 04/30/25 ipratropium bromide 17 2 puff inhalation 4XD 04/30/25 04/30/25 mcg/actuation HFA aerosol inhaler (Atrovent HFA) montelukast 10 mg tablet 10 mg PO QPM 04/30/25 04/30/25 Previous Rx's ?Medication ?Instructions ?Recorded propranolol 10 mg tablet 10 mg PO BID #180 tabs 02/26/17 omeprazole 20 mg tablet,delayed 20 mg PO QDAY #90 tabs 03/19/17 release alprazolam 0.25 mg tablet 0.25 mg PO BEDTIME PRN anxiety #14 07/16/24 tabs alprazolam 0.25 mg tablet 0.25 mg PO QDAYP PRN anxiety #14 07/16/24 tabs aspirin 81 mg tablet,delayed 81 mg PO BID #90 tabs 07/16/24 release oxycodone 5 mg tablet 5 mg PO Q6H PRN pain #20 tabs 07/16/24 oxycodone 5 mg tablet 5 mg PO Q6H PRN pain (scale score 07/16/24 4-6) #20 tabs polyethylene glycol 3350 17 gram 17 g PO DAILY PRN constipation 07/16/24 oral powder packet #100 ea oxycodone 5 mg tablet 5 mg PO Q6H PRN pain (scale score 07/18/24 4-6) #30 tabs Allergies Allergy/AdvReac Type Severity Reaction Status Date / Time meperidine (MEPERIDINE) Allergy Mild RASH Verified 07/13/24 15:03 lisinopril (LISINOPRIL) AdvReac Mild ough Verified 07/13/24 15:03 Review of Systems Review of Systems ROS Unobtainable: All systems reviewed & are unremarkable except as noted in HPI and below Patient History Medical History Cerebral aneurysm Unspecified essential hypertension (06/25/02) Malignant neoplasm of breast (female), unspecified site (06/25/02) Surgical History H/O bilateral oophorectomy History of lumpectomy of right breast S/P coil embolization of cerebral aneurysm Family History Brother Cancer Mother Cerebral aneurysm Social History household members: spouse alcohol intake: current alcohol intake frequency: 0-2 drinks per day Alcohol type: wine Exam Narrative Exam Narrative: General: Healthy appearing, in no acute distress. Able to give a complete and coherent history. Well-nourished well-developed HEENT: Moist mucous membranes, normal sclera with reactive pupils, Neck: No JVD, supple Respiratory: Lungs are clear to auscultation, no wheezing no rales no rhonchi. Full and symmetrical air movement Cardiac: Regular rate and rhythm no murmurs no bruits Abdomen: Soft, nontender, no rebound or guarding, no flank pain Skin: Warm and dry, no rashes Neurologic: Grossly neurologically intact with no obvious asymmetries or abnormalities Extremities: No trauma, well perfused Psych: Cooperative, appropriate insight and affect Initial Vital Signs Initial Vital Signs: Vital Signs Temperature 97.2 F L 04/30/25 07:27 Pulse Rate 65 04/30/25 07:27 Respiratory Rate 16 04/30/25 07:27 Blood Pressure 110/55 L 04/30/25 07:27 Pulse Oximetry 100 04/30/25 07:27 Oxygen Delivery Method Room Air 04/30/25 07:27 Course Course Course Narrative: Patient was found to have extremely low magnesium and calcium levels. We will replace with 2 g of IV magnesium sulfate and 1 g of calcium gluconate. Hospitalist was notified and accepted the patient for admission. Orders Ordered: ED Orders 04/30/25 07:47 Complete Blood Count AUTO DIFF Stat Comprehensive Metabolic Panel Stat Lipase Stat MAG [Magnesium] Stat EKG-12 Lead Stat Ondansetron HCl (Ondansetron 4 Mg/2 Ml Inj) 4 mg IV NOW PRN PRN Reason: Nausea And Vomiting Ondansetron HCl (Ondansetron 4 Mg Odt) 4 mg PO NOW PRN PRN Reason: Nausea And Vomiting Consultations Consultation #1: Dr. syed hospitalist accepted the patient. Vital Signs Vital signs: Vital Signs - 8 hr 04/30/25 07:27 Temperature 97.2 F L Pulse Rate 65 Respiratory Rate 16 Blood Pressure 110/55 L Pulse Oximetry 100 Oxygen Delivery Method Room Air MDM - Recheck/Abnormal Lab/Rx Differential Diagnosis Differential diagnosis: Likely other (hypomagnesmia, hyopcalcemia ) Condition is:: Inadequately Controlled Chronic Condition is having:: Mild excerbation Condition is at treatment goal?: No Discussed with:: Dr. Syed ECG Data Interpretation: EKG showed a normal axis with an accelerated junctional rhythm with some nonspecific ST abnormality and prolonged QT. Low QRS. CO intervals are hard to determine. MDM Narrative Medical decision making narrative: The decision was made to admit the patient for further monitoring as well as potential additional supplements of magnesium as well as calcium. Discharge Plan Departure Patient Disposition: Admitted As Inpatient Clinical Impression: Hypomagnesemia, Hypocalcemia Admit Date/Time: 04/30/25 09:13
[2025-04-30 08:25] LABS: Hematocrit 26.5 % (36-46); Hemoglobin 8.4 g/dL (12.0-16.0); Lymphocytes Absolute Auto 1000 /uL (1100-4500); Mean Corpuscular HGB Conc 31.8 % (30-36); Mean Corpuscular Hemoglobin 35.6 PG (26-34); Mean Corpuscular Volume 111.9 fL (80-100); Platelet Count 322 X10^3/uL (150-400)
[2025-04-30 08:26] LABS: Add Manual Diff / Slide Review SLIDE REVIEW
[2025-04-30 08:35] LABS: Alanine Aminotransferase 17 IU/L (<35); Albumin 3.0 g/dL (3.5-5.0); Albumin Globulin Ratio 0.9 (1.0-2.8); Alkaline Phosphatase 146 U/L (38-126); Blood Urea Nitrogen 15 mg/dL (7-17); Chloride 114 mmol/L (98-107); Estimated Glomerular Filt Rate 35 mL/min (>60); Globulin 3.2 g/dL (1.7-4.1); Glucose 99 mg/dL (70-99); HEMOLYSIS < 15 (0-50); Lipase 159 U/L (23-300); Potassium 4.4 mmol/L (3.4-5.1); Sodium 137 mmol/L (137-145); Total Protein 6.2 g/dL (6.3-8.2)
[2025-04-30 08:41] LABS: Calcium 4.9 mg/dL (8.4-10.2); Carbon Dioxide 8 mmol/L (22-32); Magnesium < 0.2 mg/dL (1.6-2.3)
[2025-04-30] MEDS: MAGNESIUM SULFATE 2 GM/50 ML PIGGYBACK IV ×2 (08:50→16:25)
[2025-04-30 09:07] LABS: Macrocytosis 1+
[2025-04-30] MEDS: CALCIUM GLUCONATE 4.65 MEQ in SODIUM CHLORIDE 0.9% 50 ML 180 MEQ IV (09:14)
[2025-04-30] MEDS: CALCIUM CARBONATE 500 MG TAB 1000 MG PO ×2 (10:48→20:24)
[2025-04-30] MEDS: MAGNESIUM OXIDE 400 MG TABLET PO ×2 (10:49→20:24)
[2025-04-30] MEDS: LACTATED RINGERS 1,000 ML 100 ML IV (10:49)
--- NOTE | 2025-04-30 14:01 | PM.HP.1 ---
History of Present Illness History of Present Illness Chief complaint: 4am call of Low level magnesium and calcium Narrative: 69-year-old female with history of a left-sided cerebral aneurysms status post coiling remotely, hypertension, PTSD, hyperlipidemia, depression, history of left trimalleolar fracture status post repair last year, asthma and eczema on Dupixent who has been having chronic diarrhea over the last 9 months who was sent by her PCP to the ED for abnormal labs. She presented to the emergency department at about 4:00 a.m. this morning after her PCP contacted her about at abnormal labs. She was told her magnesium and calcium were very low and she should go to the emergency department. She would complained of feeling weak but had no other complaints. Specifically no chest pain or complaints of palpitations. In our emergency department, labs were repeated and revealed a magnesium level of less than 0.2. Mildly elevated AST of 44, mildly elevated alkaline phosphatase at 146. Albumin of 3.0. Calcium of 4.9. Creatinine of 1.57. Hemoglobin was low at 8.4, MCV 111.9, white count 11.3, platelets 322. In the emergency department she received 2 g of IV magnesium and 1 amp of calcium gluconate. Follow-up labs are presently pending. Patient reports that she has been in bed for most of the last year. She states that her appetite has been poor but she does not believe she is lost much weight. She states she does occasionally have nausea and vomiting. She does periodically dry heave. She states her diarrhea will just come out unexpectedly. She does not have control of her bowel function. This is a big part of the reason she stays in bed. She believes she had a colonoscopy but can not recall when. She states she has a bit confused about everything she has had done. She feels her would be more informed about her medical care. She has been having some myoclonic jerking. No chest pain or palpitations. No shortness of breath. [facility] Medical History Cerebral aneurysm Unspecified essential hypertension (06/25/02) Malignant neoplasm of breast (female), unspecified site (06/25/02) Surgical History H/O bilateral oophorectomy History of lumpectomy of right breast S/P coil embolization of cerebral aneurysm Family History Brother Cancer Mother Cerebral aneurysm Social History household members: spouse alcohol intake: current Meds Home Medications and Allergies Home Medications ?Medication ?Instructions ?Recorded ?Confirmed ?Type propranolol 10 mg tablet 10 mg PO BID #180 tabs 02/26/17 04/30/25 Rx omeprazole 20 mg tablet,delayed 20 mg PO QDAY #90 tabs 03/19/17 04/30/25 Rx release albuterol sulfate 90 mcg/actuation 2 puff inhalation Q6H PRN wheezing 07/13/24 04/30/25 History aerosol inhaler amlodipine 5 mg tablet 5 mg PO DAILY 07/13/24 04/30/25 History atorvastatin 80 mg tablet 80 mg PO DAILY 07/13/24 04/30/25 History spironolactone 25 mg tablet 25 mg PO DAILY 07/13/24 04/30/25 History losartan 100 mg tablet 100 mg PO DAILY 07/15/24 04/30/25 History alprazolam 0.25 mg tablet 0.25 mg PO BEDTIME PRN anxiety #14 07/16/24 04/30/25 Rx tabs alprazolam 0.25 mg tablet 0.25 mg PO QDAYP PRN anxiety #14 07/16/24 04/30/25 Rx tabs aspirin 81 mg tablet,delayed 81 mg PO BID #90 tabs 07/16/24 04/30/25 Rx release oxycodone 5 mg tablet 5 mg PO Q6H PRN pain #20 tabs 07/16/24 04/30/25 Rx oxycodone 5 mg tablet 5 mg PO Q6H PRN pain (scale score 07/16/24 04/30/25 Rx 4-6) #20 tabs polyethylene glycol 3350 17 gram 17 g PO DAILY PRN constipation 07/16/24 04/30/25 Rx oral powder packet #100 ea oxycodone 5 mg tablet 5 mg PO Q6H PRN pain (scale score 07/18/24 04/30/25 Rx 4-6) #30 tabs dupilumab 300 mg/2 mL subcutaneous 300 mg SUBCUT Q2W 04/30/25 04/30/25 History syringe (DupixCareerStarter) escitalopram oxalate 10 mg tablet 10 mg PO DAILY 04/30/25 04/30/25 History ipratropium bromide 17 2 puff inhalation 4XD 04/30/25 04/30/25 History mcg/actuation HFA aerosol inhaler (Atrovent HFA) montelukast 10 mg tablet 10 mg PO QPM 04/30/25 04/30/25 History Allergies Allergy/AdvReac Type Severity Reaction Status Date / Time meperidine (MEPERIDINE) Allergy Mild RASH Verified 07/13/24 15:03 lisinopril (LISINOPRIL) AdvReac Mild ough Verified 07/13/24 15:03 Review of Systems Review of Systems Narrative: All other systems were reviewed negative Exam Vital Signs (past 8 hours): - 04/30/25 07:27 04/30/25 07:39 04/30/25 07:39 Temperature 97.2 F L Pulse Rate 65 69 Respiratory Rate 16 Blood Pressure 110/55 L 110/55 L Pulse Oximetry 100 100 Oxygen Delivery Method Room Air Oxygen Flow Rate 04/30/25 08:00 04/30/25 08:30 04/30/25 08:31 Temperature Pulse Rate 81 Respiratory Rate 21 33 H Blood Pressure 116/63 Pulse Oximetry 92 Oxygen Delivery Method Oxygen Flow Rate 04/30/25 08:31 04/30/25 09:00 04/30/25 09:01 Temperature Pulse Rate 77 74 74 Respiratory Rate 25 H 31 H 28 H Blood Pressure Pulse Oximetry 93 98 Oxygen Delivery Method Oxygen Flow Rate 04/30/25 09:01 04/30/25 09:30 04/30/25 09:30 Temperature Pulse Rate 77 Respiratory Rate 22 Blood Pressure 97/54 L 103/51 L Pulse Oximetry 92 Oxygen Delivery Method Oxygen Flow Rate 04/30/25 10:30 04/30/25 12:22 Temperature 97.3 F L 97.8 F Pulse Rate 73 86 Respiratory Rate 20 16 Blood Pressure 106/67 101/47 L Pulse Oximetry 98 97 Oxygen Delivery Method Oxygen Flow Rate 0 0 Oxygen Delivery Method Room Air Oxygen Flow Rate 0 Narrative Exam Narrative: GEN: Alert and oriented x3, elderly female, no acute distress, very pale HEENT: Normocephalic, face symmetric, pupils equal round reactive to light, extraocular movements intact, sclerae pale and anicteric, conjunctiva clear, nares patent, oropharynx reveals an intact soft and hard palate with moist mucous membranes, dentition is fair, perioral dermatitis noted NECK: Supple, no lymphadenopathy, thyroid without enlargement or nodularity, carotids no bruits CHEST: Respiratory excursions symmetric, clear to auscultation bilaterally CV: Regular rate and rhythm, no murmurs, rubs, gallops, PMI nondisplaced ABD: Soft, nontender, nondistended, bowel sounds present in all 4 quadrants, no organomegaly or masses appreciated EXTR: Warm, well perfused, no clubbing/cyanosis/edema SKIN: Warm and dry, diffuse erythema across her chest, legs, abdomen, severe eczema noted NEURO: Alert and oriented x3, grossly intact, occasional myoclonic jerks PSYCH: Mood and affect is within normal limits, judgment and insight are appropriate Objective Labs 04/30/25 08:07 04/30/25 08:07 Labs: Laboratory Results - last 24 hr 04/30/25 08:07 WBC 11.3 H RBC 2.36 L Hgb 8.4 L Hct 26.5 L MCV 111.9 H MCH 35.6 H MCHC 31.8 RDW 15.1 H Plt Count 322 Neut % (Auto) 75.4 H Lymph % (Auto) 8.7 L [place] % (Auto) 6.7 Eos % (Auto) 8.8 H Baso % (Auto) 0.4 Neut # (Auto) 8600 H Lymph # (Auto) 1000 L [place] # (Auto) 800 Eos # (Auto) 1000 H Baso # (Auto) 0 RBC Morphology See below Macrocytosis 1+ H Sodium 137 Potassium 4.4 Chloride 114 H Carbon Dioxide 8 L* BUN 15 Creatinine 1.57 H Estimated GFR 35 L BUN/Creatinine Ratio 9.6 Glucose 99 Calcium 4.9 L* Magnesium < 0.2 L* Total Bilirubin 0.5 AST 44 H ALT 17 Alkaline Phosphatase 146 H Total Protein 6.2 L Albumin 3.0 L Globulin 3.2 Albumin/Globulin Ratio 0.9 L Lipase 159 Assessment & Plan Assessment & Plan narrative: 1. Severe hypomagnesemia Patient presented with a magnesium level of less than 0.2. Suspect this is secondary to both poor nutrition and GI losses. She did receive IV magnesium in the emergency department. I have added oral magnesium oxide. Will need to replete somewhat slowly to prevent additional GI losses with ongoing diarrhea. Will check q.4 hours labs. We will continue to replete as needed. 2. Severe hypocalcemia Will check an ionized calcium though suspect this is fairly accurate given her albumin level is 3.0. Will plan to continue both IV and p.o. replacement. 3. BRANDON Her baseline creatinine appears to be around 0.8-0.97. Today it is 1.57. Will initiate IV fluids with LR. Will anticipate giving a total of 3 L of fluids. 4. Macrocytic anemia Quite possibly nutritional in etiology. Will check a B12 and folate. 5. Metabolic acidosis Likely due to GI losses. Anticipate this will improve with hydration. 6. Chronic diarrhea Unclear etiology. Reportedly she has had some degree of workup, but is unable to give me details as to when this was done. 7. Hypertension Will hold antihypertensives as she has borderline low blood pressures. 8. Asthma/eczema Takes Dupixent as an outpatient. Code status Full Prophylaxis Low Mayito score Disposition Admit to inpatient status. Time-Based Coding :: [TOTAL MINUTES] spent with patient and on the chart (including review of chart, obtaining history, exam, reviewing outside data, placing orders, documenting exam and treatment plan, and counseling patient) on [DATE].
[2025-04-30 14:30] LABS: Blood Urea Nitrogen 16 mg/dL (7-17); Carbon Dioxide 10 mmol/L (22-32); Chloride 114 mmol/L (98-107); Estimated Glomerular Filt Rate 35 mL/min (>60); Glucose 114 mg/dL (70-99); HEMOLYSIS < 15 (0-50); Potassium 4.3 mmol/L (3.4-5.1); Sodium 138 mmol/L (137-145)
[2025-04-30 14:31] LABS: Calcium 5.4 mg/dL (8.4-10.2)
[2025-04-30 14:39] LABS: Magnesium 1.0 mg/dL (1.6-2.3)
[2025-04-30] MEDS: CALCIUM GLUCONATE 9.3 MEQ in SODIUM CHLORIDE 0.9% 50 ML 140 MEQ IV (15:43)
[2025-04-30 15:52] LABS: Vitamin B12 Reflex MMA if <400 > 1000 pg/mL (239-931)
[2025-04-30 16:09] LABS: Folate > 20.0 ng/mL (2.76-20.0)
--- NOTE | 2025-04-30 17:17 | PT-IP ANOTE ---
PT eval order received. EMR reviewed. pt with low magnesium level of <0.2 and Ca level of 5.4. talked with hospitalist and agreed to hold PT eval order today.
[2025-04-30 17:23] LABS: Blood Urea Nitrogen 15 mg/dL (7-17); Chloride 113 mmol/L (98-107); Estimated Glomerular Filt Rate 34 mL/min (>60); Glucose 113 mg/dL (70-99); HEMOLYSIS < 15 (0-50); Potassium 4.0 mmol/L (3.4-5.1); Sodium 137 mmol/L (137-145)
[2025-04-30 17:24] LABS: Magnesium 1.0 mg/dL (1.6-2.3)
[2025-04-30 17:32] LABS: Carbon Dioxide 10 mmol/L (22-32)
[2025-04-30] MEDS: MONTELUKAST 10 MG TABLET PO (17:40)
[2025-04-30 17:42] LABS: Calcium 6.3 mg/dL (8.4-10.2)
[2025-04-30 18:30] LABS: Culture Indicated Urine Specimen Cultured
[2025-04-30 20:19] LABS: Blood Urea Nitrogen 15 mg/dL (7-17); Carbon Dioxide 11 mmol/L (22-32); Chloride 113 mmol/L (98-107); Estimated Glomerular Filt Rate 34 mL/min (>60); Glucose 120 mg/dL (70-99); HEMOLYSIS < 15 (0-50); Magnesium 1.6 mg/dL (1.6-2.3); Potassium 4.3 mmol/L (3.4-5.1); Sodium 136 mmol/L (137-145)
[2025-04-30] MEDS: ATORVASTATIN 20 MG TABLET 80 MG PO (20:24)
[2025-04-30] MEDS: diphenhydrAMINE 25 MG TABLET 50 MG PO (20:24)
[2025-04-30] MEDS: ALBUTEROL 2.5 MG/3 ML NEB (ADULT) INH (20:40)
[2025-04-30 20:44] LABS: Calcium 6.3 mg/dL (8.4-10.2)
[2025-05-01] VITALS (9 sets, daily range): BP systolic 98–136; BP diastolic 36–100; PULSE 74–105; RESP 16–20; TEMP 35.8–37.2; O2SAT 97–100
[2025-05-01] MEDS: hydrOXYzine 50 MG/ML INJ IM (00:17)
[2025-05-01] MEDS: ACETAMINOPHEN 325 MG TABLET 650 MG PO (00:17)
[2025-05-01] MEDS: LORATADINE 10 MG TABLET PO (00:17)
[2025-05-01 06:13] LABS: Hemoglobin 7.2 g/dL (12.0-16.0); Mean Corpuscular HGB Conc 33.0 % (30-36); Mean Corpuscular Hemoglobin 36.3 PG (26-34); Mean Corpuscular Volume 109.8 fL (80-100); Platelet Count 270 X10^3/uL (150-400)
[2025-05-01 06:21] LABS: Add Manual Diff / Slide Review YES; Hematocrit 21.7 % (36-46)
[2025-05-01 06:23] LABS: Blood Urea Nitrogen 14 mg/dL (7-17); Carbon Dioxide 10 mmol/L (22-32); Chloride 114 mmol/L (98-107); Estimated Glomerular Filt Rate 40 mL/min (>60); Glucose 85 mg/dL (70-99); HEMOLYSIS < 15 (0-50); Magnesium 1.8 mg/dL (1.6-2.3); Potassium 3.7 mmol/L (3.4-5.1); Sodium 135 mmol/L (137-145)
[2025-05-01 06:34] LABS: Calcium 6.1 mg/dL (8.4-10.2)
[2025-05-01] MEDS: PANTOPRAZOLE DR 20 MG TABLET PO (06:38)
[2025-05-01 06:46] LABS: Anisocytosis 1+; Basophils Percent Manual 1.0 % (0-1); Eosinophils Percent Manual 17.0 % (2-4); Lymphocytes Percent Manual 10.0 % (25-45); Macrocytosis 2+; Monocytes Percent Manual 4.0 % (2-11); Neutrophils Absolute Manual 5848 /uL (3000-5900); Segmented Neutrophils Percent 68.0 % (38-70); Total Cells Counted 100
[2025-05-01] MEDS: diphenhydrAMINE 25 MG TABLET 50 MG PO ×3 (06:46→18:48)
[2025-05-01] MEDS: IPRATROPIUM 0.5 MG/2.5 ML NEB INH (07:27)
[2025-05-01] MEDS: ALBUTEROL 2.5 MG/3 ML NEB (ADULT) INH (07:27)
--- NOTE | 2025-05-01 07:37 | P.PN_ITS ---
Subjective Subjective Date Patient Seen: 05/01/25 Interval history: She tells me that she [place] [address] with her . She says she has had this very itchy eczematous rash for 3 years. It does not look like classic scabies. She uses various topical treatments for the itching. The hemoglobin dropped from 8.4 down to 7.2 after 3 L of IV fluid. There are no symptoms or signs of GI bleeding. The white blood count is 8.6. The BMP is normal with a creatinine of 1.4. The folate is greater than 20 and the B12 is greater than 1000. The magnesium has gone from 1.0-1.6 and then 1.8. She says she has no current primary care physician. Exam Vital Signs (past 8 hours): - 05/01/25 00:20 05/01/25 04:20 05/01/25 07:30 Temperature 97.6 F 97.0 F L Pulse Rate 82 74 82 Respiratory Rate 20 20 16 Blood Pressure 104/57 L 103/48 L Pulse Oximetry 97 97 100 Oxygen Delivery Method Room Air Oxygen Flow Rate 0 0 Oxygen Delivery Method Room Air Oxygen Flow Rate 0 Narrative Exam Narrative: Alert and oriented x3. No apparent distress. Heart is regular rate and rhythm without murmur Lungs are clear to auscultation bilaterally Extremities have no ankle edema The rash is widespread and is not singular in appearance. There are areas of dry flaking skin, areas of rough eczematous patches and areas that looked more typical for scabies. This is present all over the back even where she can not scratch and is on the back of the neck also. Objective Labs 05/01/25 05:50 05/01/25 05:50 Labs: Laboratory Results - last 24 hr 04/30/25 04/30/25 04/30/25 08:07 14:06 14:14 WBC 11.3 H RBC 2.36 L Hgb 8.4 L Hct 26.5 L MCV 111.9 H MCH 35.6 H MCHC 31.8 RDW 15.1 H Plt Count 322 Neut % (Auto) 75.4 H Lymph % (Auto) 8.7 L [place] % (Auto) 6.7 Eos % (Auto) 8.8 H Baso % (Auto) 0.4 Neut # (Auto) 8600 H Lymph # (Auto) 1000 L [place] # (Auto) 800 Eos # (Auto) 1000 H Baso # (Auto) 0 Total Counted Seg Neutrophils % Lymphocytes % (Manual) Monocytes % (Manual) Eosinophils % (Manual) Basophils % (Manual) Neutrophils # (Manual) RBC Morphology See below Anisocytosis Macrocytosis 1+ H Sodium 137 138 Potassium 4.4 4.3 Chloride 114 H 114 H Carbon Dioxide 8 L* 10 L BUN 15 16 Creatinine 1.57 H 1.58 H Estimated GFR 35 L 35 L BUN/Creatinine Ratio 9.6 10.1 Glucose 99 114 H Calcium 4.9 L* 5.4 L* Magnesium < 0.2 L* 1.0 L Total Bilirubin 0.5 AST 44 H ALT 17 Alkaline Phosphatase 146 H Total Protein 6.2 L Albumin 3.0 L Globulin 3.2 Albumin/Globulin Ratio 0.9 L Lipase 159 Vitamin B12 > 1000 H Folate > 20.0 H Urine RBC Urine WBC Ur Squamous Epith Cells Urine Bacteria Ur Culture Indicated? Vol Urine Centrifuged 04/30/25 04/30/25 04/30/25 17:05 18:10 20:00 WBC RBC Hgb Hct MCV MCH MCHC RDW Plt Count Neut % (Auto) Lymph % (Auto) [place] % (Auto) Eos % (Auto) Baso % (Auto) Neut # (Auto) Lymph # (Auto) [place] # (Auto) Eos # (Auto) Baso # (Auto) Total Counted Seg Neutrophils % Lymphocytes % (Manual) Monocytes % (Manual) Eosinophils % (Manual) Basophils % (Manual) Neutrophils # (Manual) RBC Morphology Anisocytosis Macrocytosis Sodium 137 136 L Potassium 4.0 4.3 Chloride 113 H 113 H Carbon Dioxide 10 L 11 L BUN 15 15 Creatinine 1.60 H 1.62 H Estimated GFR 34 L 34 L BUN/Creatinine Ratio 9.4 9.3 Glucose 113 H 120 H Calcium 6.3 L* 6.3 L* Magnesium 1.0 L 1.6 Total Bilirubin AST ALT Alkaline Phosphatase Total Protein Albumin Globulin Albumin/Globulin Ratio Lipase Vitamin B12 Folate Urine RBC 0-1/hpf Urine WBC 10-30/hpf H Ur Squamous Epith Cells 0-1 /hpf D Urine Bacteria Many (>30) H Ur Culture Indicated? Specimen cultured Vol Urine Centrifuged 10ml (spun) 05/01/25 05:50 WBC 8.6 RBC 1.98 L Hgb 7.2 L Hct 21.7 L MCV 109.8 H MCH 36.3 H MCHC 33.0 RDW 15.2 H Plt Count 270 Neut % (Auto) Not Reportable Lymph % (Auto) Not Reportable [place] % (Auto) Not Reportable Eos % (Auto) Not Reportable Baso % (Auto) Not Reportable Neut # (Auto) Lymph # (Auto) Not Reportable [place] # (Auto) Not Reportable Eos # (Auto) Baso # (Auto) Not Reportable Total Counted 100 Seg Neutrophils % 68.0 Lymphocytes % (Manual) 10.0 L Monocytes % (Manual) 4.0 Eosinophils % (Manual) 17.0 H Basophils % (Manual) 1.0 Neutrophils # (Manual) 5848 RBC Morphology See below Anisocytosis 1+ H Macrocytosis 2+ H Sodium 135 L Potassium 3.7 Chloride 114 H Carbon Dioxide 10 L BUN 14 Creatinine 1.40 H Estimated GFR 40 L BUN/Creatinine Ratio 10.0 Glucose 85 Calcium 6.1 L* Magnesium 1.8 Total Bilirubin AST ALT Alkaline Phosphatase Total Protein Albumin Globulin Albumin/Globulin Ratio Lipase Vitamin B12 Folate Urine RBC Urine WBC Ur Squamous Epith Cells Urine Bacteria Ur Culture Indicated? Vol Urine Centrifuged [facility] Medical History Cerebral aneurysm Unspecified essential hypertension (06/25/02) Malignant neoplasm of breast (female), unspecified site (06/25/02) Surgical History H/O bilateral oophorectomy History of lumpectomy of right breast S/P coil embolization of cerebral aneurysm Family History Brother Cancer Mother Cerebral aneurysm Social History household members: spouse alcohol intake: current Assessment & Plan Assessment & Plan narrative: 1. Severe hypomagnesemia Patient presented with a magnesium level of less than 0.2. Suspect this is secondary to both poor nutrition and GI losses. She did receive IV magnesium in the emergency department. She is now on oral magnesium oxide. Will need to replete somewhat slowly to prevent additional GI losses with ongoing diarrhea. Continue to replete as needed. 2. Severe hypocalcemia Continue both IV and p.o. replacement. 3. BRANDON Her baseline creatinine appears to be around 0.8-0.97. Today it is 1.40. Continue LR. Anticipate giving a total of 3 L of fluids. 4. Macrocytic anemia Quite possibly nutritional in etiology. B12 and folate are both well above normal ranges. MCV is 109.8. Transfuse if drops below 7. 5. Metabolic acidosis Likely due to GI losses. Anticipate this will improve with hydration. 6. Chronic diarrhea Unclear etiology. Reportedly she has had some degree of workup, but is unable to give details as to when this was done. 7. Hypertension Holding antihypertensives as she has borderline low blood pressures. 8. Asthma/eczema Takes Dupixent as an outpatient. Consider Scabies treatment, given the description of intense itching. Does not look typical. Code status Full Prophylaxis Low Mayito score Disposition Return home when stable. Time-Based Coding :: [TOTAL MINUTES] spent with patient and on the chart (including review of chart, obtaining history, exam, reviewing outside data, placing orders, documenting exam and treatment plan, and counseling patient) on [DATE].
[2025-05-01] MEDS: CALCIUM CARBONATE 500 MG TAB 1000 MG PO ×2 (08:28→20:03)
[2025-05-01] MEDS: MAGNESIUM OXIDE 400 MG TABLET PO ×2 (08:28→20:03)
[2025-05-01] MEDS: CALCIUM GLUCONATE 9.3 MEQ in SODIUM CHLORIDE 0.9% 50 ML 140 MEQ IV (08:50)
--- NOTE | 2025-05-01 11:49 | PT.IIE ---
Current Diagnoses Hypomagnesemia (04/30/25) Surgical History (Last Reviewed 07/15/24 @ 09:39 by José Manuel Temple PA-C) H/O bilateral oophorectomy History of lumpectomy of right breast S/P coil embolization of cerebral aneurysm Medical History (Last Reviewed 07/15/24 @ 09:39 by José Manuel Temple PA-C) Cerebral aneurysm Malignant neoplasm of breast (female), unspecified site (06/25/02) Unspecified essential hypertension (06/25/02) Physical Therapy Inpatient Evaluation/Re-Eval M1 PT/OT-IP Prior Functional Status Start: 05/01/25 11:36 Freq: NEEDED Status: Active Protocol: Document 05/01/25 11:15 MB (Rec: 05/01/25 11:48 MB Desktop) Medical Review Prior Functional Status Medical History Yes Reviewed Communication Unsure baseline diet, pt answers most questions Mobility and Gait Pt reports she spends most time in the bed and her assists her with her rollator to the BR. She does not like to walk in the house because she is afraid. It is unclear what she is afraid of Activities of Daily Unclear description today Living and IADL's Social History Household Members spouse Living Arrangements House Number of Floors ( One Floor Floors) Number of Stairs To No steps to enter Enter/Railing? Home Equipment Four Wheel Walker Additional Social Pt does not answer all PLOF and set-up questions, she History Comment states she spends most time in a regular bed M2 PT-IP Current Condition Start: 05/01/25 11:36 Freq: NEEDED Status: Active Protocol: Document 05/01/25 11:15 MB (Rec: 05/01/25 11:48 MB Desktop) Physical Therapy Current Condition Current Condition Evaluation Date 05/01/25 Treatment Diagnosis Abnormal labs, decreased mobility M3 PT-IP Subjective Start: 05/01/25 11:36 Freq: NEEDED Status: Active Protocol: Document 05/01/25 11:15 MB (Rec: 05/01/25 11:48 MB Desktop) Subjective Physical Therapy Visit Type Type Initial Evaluation Visit Start Time 11:15 Visit Stop Time 11:35 Number of DESIGN ARCHITECT Visits 0 Physical Therapy Visit Comments Patient Comments Pt states that she has chronic eczema, PTSD and history of breast CA. She is agreeable to PT. Therapy Pain Assessment Pain When Pain Assessed At Rest Pain Present Pain Present Pain Reported Location All over burning skin Scale Used Not rated, c/o skin bothers her M4 PT-IP Mobility and Gait Start: 05/01/25 11:36 Freq: NEEDED Status: Active Protocol: Document 05/01/25 11:15 MB (Rec: 05/01/25 11:48 MB Desktop) PT-Bed Mobility Assessment Rolling Type of Rolling Roll to Left Level of Assist Contact Guard Assistance Supine to Sit Supine to Sit Contact Guard Assistance,1 Person Assistance,Head of Bed Elevated,Bedrails Scooting Scooting to Edge of Contact Guard Assistance Bed PT-Transfer Assessment Sit to and From Stand Sit to and from Minimal Assistance,1 Person Assistance,Use of Upper Stand Extremities Equipment Transfer Assistive Gait Belt,Front Wheeled Walker Device Transfers Transfer Destination Chair Transfer Technique Stepping Transfer Ability Level of Assist Minimal Assistance Gait Assessment Gait Gait Assistance Minimum Assistance Required: Distance (Feet) 2 Assistive Devices Assistive Device Gait Belt,Front Wheeled Walker Gait Deviations General Gait Pattern Decreased Stride Length,Decreased Feet Clearance,Flexed Trunk,Step-to Gait Factors Limiting Gait Function Factors Limiting Decreased Activity Tolerance,Difficulty Following Gait Function Directions,Poor Balance,Poor Safety Awareness PT-Balance Assessment Sitting Balance and Reactions Static Sitting Good Balance Ability Dynamic Sitting Fair Balance Ability Standing Balance and Reactions Static Standing Fair Balance Ability Dynamic Standing Fair Balance Ability Device Used RW M5 PT-IP Objective Assessments Start: 05/01/25 11:36 Freq: NEEDED Status: Active Protocol: Document 05/01/25 11:15 MB (Rec: 05/01/25 11:48 MB Desktop) Orientation Orientation/Cognition Level of Alertness Alert Orientation Name,Age,Birthday,Month,Year,Day of Week,Place Language Function No Deficits Noted Ability Safety Awareness Decreased Safety Awareness Memory Description Short Term Impaired,Igniter Capper Impaired Gross Range of Motion Upper Extremity ROM Impairments Defer to OT Lower Extremity ROM Assessment Bilaterally Impaired Impairments Left ankle with limited ROM and pt reports old fracture , left second toe is red and adducted over great toe Strength Lower Extremity Strength Knee 3/5 B knee extension Ankle Left ankle not tested and right DF 3+/5 Comments Strength Comments Limited B toe mobility Sensation Assessment Comments Sensation Comments NT, many areas of skin changes over her body, left brachial IV is red and swollen and nsg reports it is actually better Other Assessments Other Other Assessments Increased left PF tension and decreased ankle DF M6 PT-IP Treatment Start: 05/01/25 11:36 Freq: NEEDED Status: Active Protocol: Document 05/01/25 11:15 MB (Rec: 05/01/25 11:48 MB Desktop) Physical Therapy Treatment Education Education Provided Safety M7 PT-IP Assessment and Plan Start: 05/01/25 11:36 Freq: NEEDED Status: Active Protocol: Document 05/01/25 11:15 MB (Rec: 05/01/25 11:48 MB Desktop) PT Summary Assessment and Plan Potential Rehabilitation Fair Potential Status of Condition Evolving at Evaluation Summary Impairments Pain,ROM,Strength,Balance,Coordination,Sensation,Tone, Cognition,Bed Mobility,Transfers,Gait,Activity Tolerance Assessment Summary Pt is a 69 y/o lady presenting with abnormal labs and her magnesium and calcium are mildly better today. Her Hgb is lower at 7.2 and PT clears PT assessment with attending and nsg. Pt denies light-headedness with mobility today. Pt presents with confusion and decreased reports about why she has been staying mostly in bed at home. She is afraid to get up there. She lives on [address] with her . She has total body skin changes. She requires cues and CGA for bed mobility and min A for standing and stepping to chair today. Currently recommend SNF at d/c. Goals Bed Mobility Goal Independent Transfer Goal Standby Assistance,Front Wheeled Walker,Four Wheeled Walker Gait Goal Standby Assistance,Front Wheel Walker,Four Wheel Walker Gait Distance 75 Days to Meet Goals 5 Frequency of Treatment Frequency Of Once a Day Treatment Treatment Plan Physical Therapy Bed Mobility Training,Transfer Training,Gait Training, Treatment Plan Therapeutic Exercise,Balance Retraining,Discharge Planning,Hot or Cold Pack,Neuromuscular Re-ed, Coordination Retraining,Manual Therapy Recommendations To Nursing Amount of Assist 1 Person Assist Needed Discharge Recommendations PT Discharge SNF Rehab Recommendations Transportation Needs Wheelchair/Cabulance at Discharge - PT assist x1
[2025-05-01] MEDS: LACTATED RINGERS 1,000 ML 100 ML IV ×2 (12:05→22:02)
[2025-05-01] MEDS: MONTELUKAST 10 MG TABLET PO (16:09)
--- NOTE | 2025-05-01 18:58 | PC.NURSE ---
Day shift note: UP OOB to chair for meals. 1 PA FWW. No BM this shift. Voiding. Pruritic patchy rash, waxing and wane throught out day. Benadryl PRN with adequate response. Spouse at bedside this shift providing supportive care. SCDs and IVF infusing.
[2025-05-01] MEDS: ATORVASTATIN 20 MG TABLET 80 MG PO (20:02)
[2025-05-02] VITALS (11 sets, daily range): BP systolic 98–141; BP diastolic 39–74; PULSE 99–119; RESP 16–22; TEMP 36–36.5; O2SAT 91–99
[2025-05-02] MEDS: diphenhydrAMINE 25 MG TABLET 50 MG PO ×3 (00:04→17:55)
[2025-05-02 04:42] LABS: Add Manual Diff / Slide Review NO; Hematocrit 22.1 % (36-46); Hemoglobin 7.3 g/dL (12.0-16.0); Lymphocytes Absolute Auto 800 /uL (1100-4500); Mean Corpuscular HGB Conc 33.1 % (30-36); Mean Corpuscular Hemoglobin 36.4 PG (26-34); Mean Corpuscular Volume 109.7 fL (80-100); Platelet Count 262 X10^3/uL (150-400)
[2025-05-02 04:52] LABS: Blood Urea Nitrogen 12 mg/dL (7-17); Calcium 7.2 mg/dL (8.4-10.2); Carbon Dioxide 15 mmol/L (22-32); Chloride 114 mmol/L (98-107); Estimated Glomerular Filt Rate 54 mL/min (>60); Glucose 100 mg/dL (70-99); HEMOLYSIS < 15 (0-50); Potassium 3.8 mmol/L (3.4-5.1); Sodium 137 mmol/L (137-145)
[2025-05-02] MEDS: PANTOPRAZOLE DR 20 MG TABLET PO (06:29)
--- NOTE | 2025-05-02 07:32 | PM.PN.1 ---
Subjective Subjective Interval history: S: She was doing well. She feels fatigued and is okay with a blood transfusion today. She was on chronic therapy for her eczema. She denies any rectal bleeding including bright red blood per rectum or melena. Exam Vital Signs (past 8 hours): - 05/01/25 23:48 05/02/25 03:00 05/02/25 04:00 Temperature 97.7 F 96.8 F L Pulse Rate 105 H 116 H 108 H Respiratory Rate 20 22 Blood Pressure 125/94 H 126/58 L Pulse Oximetry 100 99 Oxygen Flow Rate 1 0 Oxygen Delivery Method Room Air Oxygen Flow Rate 0 Narrative Exam Narrative: NAD, alert and oriented. Fluent speech. Pale. Lungs are clear, normal rate and effort. Heart is regular, no murmur gallop or rub. Abdomen is soft, non distended. Extremities are free of edema. Chronic eczema rash over arms legs and torso Objective Labs 05/02/25 04:30 05/02/25 13:28 Labs: Laboratory Results - last 24 hr 05/02/25 04:30 WBC 9.3 RBC 2.02 L Hgb 7.3 L Hct 22.1 L MCV 109.7 H MCH 36.4 H MCHC 33.1 RDW 14.8 Plt Count 262 Neut % (Auto) 68.6 Lymph % (Auto) 8.2 L [place] % (Auto) 8.3 Eos % (Auto) 14.6 H Baso % (Auto) 0.3 Neut # (Auto) 6400 Lymph # (Auto) 800 L [place] # (Auto) 800 Eos # (Auto) 1400 H Baso # (Auto) 0 Sodium 137 Potassium 3.8 Chloride 114 H Carbon Dioxide 15 L BUN 12 Creatinine 1.10 H Estimated GFR 54 L BUN/Creatinine Ratio 10.9 Glucose 100 H Calcium 7.2 L PFSH Medical History Cerebral aneurysm Unspecified essential hypertension (06/25/02) Malignant neoplasm of breast (female), unspecified site (06/25/02) Surgical History H/O bilateral oophorectomy History of lumpectomy of right breast S/P coil embolization of cerebral aneurysm Family History Brother Cancer Mother Cerebral aneurysm Social History household members: spouse alcohol intake: current Assessment & Plan Assessment & Plan narrative: 1. Severe hypomagnesemia, improved. 2. Severe hypocalcemia, improving. 3. BRANDON, improving. Her baseline creatinine appears to be around 0.8-0.97. 4. Macrocytic anemia, active. Quite possibly nutritional in etiology. B12 and folate are both well above normal ranges. MCV is 109.8. 5. Metabolic acidosis, improved. Likely due to GI losses. Anticipate this will improve with hydration. 6. Chronic diarrhea, chronic and active. Unclear etiology. Reportedly she has had some degree of workup, but is unable to give details as to when this was done. 7. Hypertension, stable. Holding antihypertensives as she has borderline low blood pressures. 8. Asthma/eczema, stable Takes Dupixent as an outpatient. PLAN: -transfuse 1 unit of blood -stop IV fluids and monitor renal function -aggressively replace calcium -continue oral magnesium Anticipate discharge on 05/03. Code status Full Prophylaxis Low Mayito score Time-Based Coding :: [TOTAL MINUTES] spent with patient and on the chart (including review of chart, obtaining history, exam, reviewing outside data, placing orders, documenting exam and treatment plan, and counseling patient) on [DATE].
[2025-05-02] MEDS: CALCIUM GLUCONATE 9.3 MEQ in SODIUM CHLORIDE 0.9% 50 ML 140 MEQ IV ×2 (07:58→15:28)
[2025-05-02] MEDS: MAGNESIUM OXIDE 400 MG TABLET PO ×2 (08:05→21:08)
[2025-05-02] MEDS: CALCIUM CARBONATE 500 MG TAB 1000 MG PO ×2 (08:05→21:08)
--- NOTE | 2025-05-02 09:06 | PT.IPTN ---
Current Diagnoses Hypomagnesemia (04/30/25) Physical Therapy Treatment Note M2 PT-IP Current Condition Start: 05/01/25 11:36 Freq: NEEDED Status: Active Protocol: Document 05/01/25 11:15 MB (Rec: 05/01/25 11:48 MB Desktop) Physical Therapy Current Condition Current Condition Evaluation Date 05/01/25 Treatment Diagnosis Abnormal labs, decreased mobility M3 PT-IP Subjective Start: 05/01/25 11:36 Freq: NEEDED Status: Active Protocol: Document 05/02/25 08:30 MB (Rec: 05/02/25 09:06 MB Desktop) Subjective Physical Therapy Visit Type Type Treatment Note Visit Start Time 08:30 Visit Stop Time 08:53 Number of SLIVER LAPPER Visits 0 Physical Therapy Visit Comments Patient Comments Pt is agreeable to working with PT with encouragement. She reports PTSD, verbalizes she feels safe at home but she is too scared to walk and has been bed bound a couple of years. She states she can walk but she is scared. PT attempts to ask more about home situation and pt does not answer all questions directly. Therapy Pain Assessment Pain When Pain Assessed At Rest Pain Present Pain Present Pain Reported Location All over burning skin Scale Used Not rated, c/o skin M4 PT-IP Mobility and Gait Start: 05/01/25 11:36 Freq: NEEDED Status: Active Protocol: Document 05/02/25 08:30 MB (Rec: 05/02/25 09:06 MB Desktop) PT-Bed Mobility Assessment Rolling Type of Rolling Roll to Left Level of Assist Contact Guard Assistance Supine to Sit Supine to Sit Contact Guard Assistance,1 Person Assistance,Head of Bed Elevated,Bedrails Scooting Scooting to Edge of Contact Guard Assistance Bed PT-Transfer Assessment Sit to and From Stand Sit to and from Minimal Assistance,Moderate Assistance,1 Person Stand Assistance,Use of Upper Extremities Equipment Transfer Assistive Gait Belt,Front Wheeled Walker Device Transfers Transfer Destination Chair,Toilet Transfer Technique Ambulation Transfer Ability Level of Assist Minimal Assistance Comments Mobility Comments Pt presents with floppy type movements and does not pick her head up well with transfers, sitting and gait. She requires min A and RW for STS x2 from the bed and mod A from the toilet. Pt unsafely laterally sits on the edge of the recliner after gait from BR. She fatigues easily and does not follow commands. BP and HR in RUE in chair is 92/60, 121. Her O2 sats are 91% on RA and she presents with HOPKINS. Gait Assessment Gait Gait Assistance Minimum Assistance,Moderate Assistance,1 Person Assist Required: Distance (Feet) 10 Assistive Devices Assistive Device Gait Belt,Front Wheeled Walker Gait Deviations General Gait Pattern Decreased Stride Length,Decreased Feet Clearance,Flexed Trunk,Step-to Gait Factors Limiting Gait Function Factors Limiting Decreased Activity Tolerance,Difficulty Following Gait Function Directions,Poor Balance,Poor Safety Awareness Comments Gait Comments 10'x2, shuffling steps with little foot clearance on the left given old ankle injury and PF shortening and little active left ankle and foot movement PT-Balance Assessment Sitting Balance and Reactions Static Sitting Good Balance Ability Dynamic Sitting Fair Balance Ability Standing Balance and Reactions Static Standing Fair Balance Ability Dynamic Standing Poor Balance Ability Device Used RW M5 PT-IP Objective Assessments Start: 05/01/25 11:36 Freq: NEEDED Status: Active Protocol: Document 05/01/25 11:15 MB (Rec: 05/01/25 11:48 MB Desktop) Orientation Orientation/Cognition Level of Alertness Alert Orientation Name,Age,Birthday,Month,Year,Day of Week,Place Language Function No Deficits Noted Ability Safety Awareness Decreased Safety Awareness Memory Description Short Term Impaired,Custodial Impaired Gross Range of Motion Upper Extremity ROM Impairments Defer to OT Lower Extremity ROM Assessment Bilaterally Impaired Impairments Left ankle with limited ROM and pt reports old fracture , left second toe is red and adducted over great toe Strength Lower Extremity Strength Knee 3/5 B knee extension Ankle Left ankle not tested and right DF 3+/5 Comments Strength Comments Limited B toe mobility Sensation Assessment Comments Sensation Comments NT, many areas of skin changes over her body, left brachial IV is red and swollen and nsg reports it is actually better Other Assessments Other Other Assessments Increased left PF tension and decreased ankle DF M6 PT-IP Treatment Start: 05/01/25 11:36 Freq: NEEDED Status: Active Protocol: Document 05/02/25 08:30 MB (Rec: 05/02/25 09:06 MB Desktop) Physical Therapy Treatment Education Education Provided Safety M7 PT-IP Assessment and Plan Start: 05/01/25 11:36 Freq: NEEDED Status: Active Protocol: Document 05/02/25 08:30 MB (Rec: 05/02/25 09:06 MB Desktop) PT Summary Assessment and Plan Potential Rehabilitation Fair Potential Status of Condition Evolving at Evaluation Summary Impairments Pain,ROM,Strength,Balance,Coordination,Sensation,Tone, Cognition,Bed Mobility,Transfers,Gait,Activity Tolerance Progress Towards Slow Progress - Other Goals Assessment Summary Pt agrees to getting up to BR with PT with encouragement. She does not need to use the BR once there. Pt is rather floppy with mobility, has poor safety awareness and command-following and tends to plop onto commode and laterally onto the recliner. She is at increased risk for falls and PT leaves chair alarm on pt and communicates with nsg. Recommend OT consult and possible cognitive screen and SNF at d/c. Goals Bed Mobility Goal Independent Transfer Goal Standby Assistance,Front Wheeled Walker,Four Wheeled Walker Gait Goal Standby Assistance,Front Wheel Walker,Four Wheel Walker Gait Distance 50 Days to Meet Goals 5 Frequency of Treatment Frequency Of Once a Day Treatment Treatment Plan Physical Therapy Bed Mobility Training,Transfer Training,Gait Training, Treatment Plan Therapeutic Exercise,Balance Retraining,Discharge Planning,Hot or Cold Pack,Neuromuscular Re-ed, Coordination Retraining,Manual Therapy Recommendations To Nursing Amount of Assist 1 Person Assist Needed Discharge Recommendations PT Discharge SNF Rehab Recommendations Transportation Needs Wheelchair/Cabulance at Discharge - PT assist x1
[2025-05-02 13:52] LABS: Alanine Aminotransferase 27 IU/L (<35); Albumin 2.7 g/dL (3.5-5.0); Albumin Globulin Ratio 0.9 (1.0-2.8); Alkaline Phosphatase 205 U/L (38-126); Blood Urea Nitrogen 12 mg/dL (7-17); Calcium 8.2 mg/dL (8.4-10.2); Carbon Dioxide 13 mmol/L (22-32); Chloride 113 mmol/L (98-107); Estimated Glomerular Filt Rate 56 mL/min (>60); Globulin 2.9 g/dL (1.7-4.1); Glucose 117 mg/dL (70-99); HEMOLYSIS < 15 (0-50); Potassium 4.4 mmol/L (3.4-5.1); Sodium 138 mmol/L (137-145); Total Protein 5.6 g/dL (6.3-8.2)
--- NOTE | 2025-05-02 14:35 | CM.DANOTE ---
Patient is a 69 yo female who was admitted INPT Status on 04/30/25 for Hypomagnesemia. Pt has [facility] AD[facility] for insurance and her PCP is on [place]. EMR was reviewed. Per MD, pt with hx of brain aneurism with cognitive impairment at baseline and labs are improving but to get a unit of blood today and calcium and magnesium and likely discharge home tomorrow 05/03. Per PT, recommending SNF rehab before d/c home although pt mostly in bed at baseline. SW met bedside with pt and spouse and explained role and they confirm they still live at home on [place] and spouse is pt's primary CG. Pt has worked with outpt PT on [facility] many times previously in an attempt to keep up her strength although pt reluctant but aware she needs to keep up her strength to remain at home and avoid SNF. Pt has hx of [facility]SV last year in 2023 after ankle fx and spouse and pt state they felt the care was not adequate and pt hated it and only lasted a day or two before going home. Spouse confirms that pt has poor short term memory but both feel they can safely manage at home at discharge and aware if pt's labs normal then plan of discharge tomorrow . Spouse confirms he will transport pt at d/c and preference is to catch the 1230 ferry back to [place]. They deny HH at this time as they feel outpt PT on [facility] provides great PT. Plan: SW to follow for plan of discharge back to [place] via spouse POV and preference is the [address] Friday if medically stable. BHAVESH Magallanes Discharge Planning/Care Management CM Discharge Assessment Start: 04/30/25 10:30 Freq: Status: Active Protocol: Document 05/02/25 14:32 BF (Rec: 05/02/25 14:34 BF [id number]) Discharge Planning Assessment Assigned Discharge BHAVESH [employer] Computing Services Director DPOA/Assigned spouse Donavon Designee Name Advance Directives? No Advance Directives No on File History Provided By Patient,Significant Other,Medical Record Has Patient been No admitted in last 30 days? Prior Living House Arrangements Household Members spouse Type of Relies on Others transporation used prior to admit Independent with ADL No 's Is patient alert and No oriented? Needs Assistance Meal Prep,Managing Medications,Home Chores / Shopping With Caregiver for No Another Community Services Physical Therapy used prior to admission: Comment has been established with outpt PT on [facility] Already Rented / Wheelchair,Elevated Toilet Seat,FWW / Walker Owned Patient/Family OP PT Therapy Preference Barriers to No Discharge Discharge Plan Home Community Services Physical Therapy Transportation Patients will provide transport home to [facility] when medically cleared. Referrals Initiated None needed If patient plan is No SNF: Has PASSR been completed? Whiteboard Updated Yes in Patient Room with name and ext. 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
--- NOTE | 2025-05-02 14:48 | DIET.CONS ---
Dietary Consultation Note Admission Date: 04/30/2025 09:13 Assessment: 69 y F admitted for Severe hypomagnesemia. Dietitian consulted for severe lyte derangement, chronic diarrhea. Met with pt at bedside who reports 1.5 weeks of no PO intakes before hospitalization d/t being sick. Diet recall before the past 1.5 weeks: 1 meal per day for dinner (meat, rice, veg), reports this is normal for her. Unsure about weight loss or usual weight. Ht: 167.64 cm Wt: 63.503 kg BMI: 22.6 UBW: 68 kg on 07/13/24 (-6.5% loss in 1 yr, non-severe) Last BM: 04/29/25 (04/30/25 11:54) MNA: Mac Score: 18 Diet: 04/30/25 Breakfast General (Regular) Diet Diet Modifications: Nutrition Percent Meal Consumed 50% 05/01/25 12:38 Percent Meal Consumed 25% 04/30/25 18:00 Labs: RBC 2.02 X10^6/uL (4.0-5.2) L 05/02/25 04:30 Hgb 7.3 g/dL (12.0-16.0) L 05/02/25 04:30 Hct 22.1 % (36-46) L 05/02/25 04:30 Creatinine 1.06 mg/dL (0.52-1.04) H 05/02/25 13:28 Nutrition Diagnosis: Inadequate oral intake r/t loss of appetite, nausea/vomiting aeb no PO intake for 1.5 weeks Interventions: -Ensure BID -Discussed food options she may like on the menu, i.e. p[employer] and J[employer] and having multiple sides she knows she will like (i.e. yogurt) EER: 9264-2105 kcals (25-27 kcals/kg per BMI) 50 g protein (.8 g/kg BRANDON) Monitoring/Evaluations: PO intakes, ONS tolerance Electronically Signed by: Bryanna Garcia 05/02/25 14:48 Clinical Dietitian [address] [id number]
[2025-05-02] MEDS: MONTELUKAST 10 MG TABLET PO (17:14)
[2025-05-02] MEDS: ALBUTEROL 2.5 MG/3 ML NEB (ADULT) INH (20:56)
[2025-05-02] MEDS: ATORVASTATIN 20 MG TABLET 80 MG PO (21:08)
[2025-05-03] MEDS: diphenhydrAMINE 25 MG TABLET 50 MG PO ×2 (00:19→20:17)
[2025-05-03 03:00] VITALS: BP 133/89; PULSE 120; RESP 22; TEMP 36.6; O2SAT 96
--- NOTE | 2025-05-03 03:08 | PC.NURSE ---
shift supervisor melting: Patient is alert to voice and accurately stated name, place, situation, month/year at start of shift. However patient is becoming more forgetful throughout the night, stating that she thought she was at the dentist or in her home. Will call out for her who is not at the bedside. Patient is restless and fidgety, tachycardic in 110s-120s at rest, reports that she has not slept well since she's been at the hospital. Patient expressed that she will usually consume 3 glasses of wine per night at home before bed. Skin is itchy, red/flaky all over body, however patient states this is d/t her eczema she has had for several years. Notified MD Jin of findings, CIWA protocol initiated. Cont tele in place, seizure prec. in place. Plan of care ongoing.
[2025-05-03 04:00] VITALS: PULSE 123; RESP 14
[2025-05-03 07:00] VITALS: BP 114/80; PULSE 121; RESP 21; TEMP 36.1; O2SAT 93
[2025-05-03] MEDS: MAGNESIUM OXIDE 400 MG TABLET PO ×2 (08:45→20:17)
[2025-05-03] MEDS: CALCIUM CARBONATE 500 MG TAB 1000 MG PO ×2 (08:45→20:17)
--- NOTE | 2025-05-03 10:40 | PT.IPTN ---
Current Diagnoses Hypomagnesemia (04/30/25) Physical Therapy Treatment Note M2 PT-IP Current Condition Start: 05/01/25 11:36 Freq: NEEDED Status: Active Protocol: Document 05/01/25 11:15 MB (Rec: 05/01/25 11:48 MB Desktop) Physical Therapy Current Condition Current Condition Evaluation Date 05/01/25 Treatment Diagnosis Abnormal labs, decreased mobility M3 PT-IP Subjective Start: 05/01/25 11:36 Freq: NEEDED Status: Active Protocol: Document 05/03/25 10:40 AB (Rec: 05/03/25 12:19 AB [id number]) Subjective Physical Therapy Visit Type Type Treatment Note Visit Start Time 10:40 Visit Stop Time 11:10 Number of SPECIAL CRIMES INVESTIGATOR Visits 0 Physical Therapy Visit Comments Patient Comments stated that she is very tired M4 PT-IP Mobility and Gait Start: 05/01/25 11:36 Freq: NEEDED Status: Active Protocol: Document 05/03/25 10:40 AB (Rec: 05/03/25 12:19 AB [id number]) PT-Bed Mobility Assessment Supine to Sit Supine to Sit Maximum Assistance,2 Person Assistance,Head of Bed Elevated Scooting Scooting to Edge of Dependent Bed PT-Transfer Assessment Sit to and From Stand Sit to and from Maximum Assistance,2 Person Assistance,Use of Upper Stand Extremities Equipment Transfer Assistive Gait Belt,Front Wheeled Walker Device Orthotic/Prosthetic No Devices or Brace: Transfers Transfer Destination Chair Transfer Technique Stand Step Pivot Transfer Ability Level of Assist Maximum Assistance,1 Person Assistance,2 Person Assistance,Use of Upper Extremities Comments Mobility Comments pt in bed and drowsy. agreed to get up. nurse in room to assist. pt also needed to be cleaned up and brief change. supine to sit max A x 2 and max cues. HOB elevated. pt required max A for sitting balance and max cues. cues to stay awake. total A for scooting to EOB. sit to stand from EOB x 3 attempts requiring max A x2 and max cues. max A for standing balance using FWW for support while nurse assists pt with brief change. pt needed to stand x 2x as pt unable to tolerate much standing needed seated rest breaks. positioned chair next to pt. sit to stand again max A x 2 and max cues and pt was able to step transfer to chair using FWW max A x 2 and max cues. positioned pt on the chair but needed to stand again for waffle cushion positioning. sit to stand from chair max A x 2 and max cues. call light and table next to pt. Left pt with nurse. 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 Tennis Coach Impaired Gross Range of Motion Upper Extremity ROM Impairments Defer to OT Lower Extremity ROM Assessment Bilaterally Impaired Impairments Left ankle with limited ROM and pt reports old fracture , left second toe is red and adducted over great toe Strength Lower Extremity Strength Knee 3/5 B knee extension Ankle Left ankle not tested and right DF 3+/5 Comments Strength Comments Limited B toe mobility Sensation Assessment Comments Sensation Comments NT, many areas of skin changes over her body, left brachial IV is red and swollen and nsg reports it is actually better Other Assessments Other Other Assessments Increased left PF tension and decreased ankle DF M6 PT-IP Treatment Start: 05/01/25 11:36 Freq: NEEDED Status: Active Protocol: Document 05/03/25 10:40 AB (Rec: 05/03/25 12:19 AB [id number]) Physical Therapy Treatment Education Education Provided Safety M7 PT-IP Assessment and Plan Start: 05/01/25 11:36 Freq: NEEDED Status: Active Protocol: Document 05/03/25 10:40 AB (Rec: 05/03/25 12:19 AB [id number]) PT Summary Assessment and Plan Goals Bed Mobility Goal Independent Transfer Goal Standby Assistance,Front Wheeled Walker Gait Goal Standby Assistance,Front Wheel Walker Gait Distance 50 Days to Meet Goals 10 Frequency of Treatment Frequency Of Once a Day Treatment Treatment Plan Physical Therapy Bed Mobility Training,Transfer Training,Gait Training, Treatment Plan Therapeutic Exercise,Balance Retraining,Discharge Planning,Hot or Cold Pack,Neuromuscular Re-ed, Coordination Retraining,Manual Therapy Recommendations To Nursing Amount of Assist 2 Person Assist Needed Discharge Recommendations PT Discharge SNF Rehab Recommendations Transportation Needs Wheelchair/Cabulance at Discharge - PT assist 2
[2025-05-03 11:00] VITALS: BP 123/73; PULSE 75; RESP 21; TEMP 35.7; O2SAT 98
--- NOTE | 2025-05-03 11:10 | DIET.PN1 ---
Dietary Progress Note Assessment: Attempted f/u x2 this morning, sound asleep or working with therapy. Will continue Ensure and f/u on tolerance. Ht: 167.64 cm Wt: 63.503 kg BMI: 22.6 Last BM: 04/29/25 (04/30/25 11:54) MNA: Mac Score: 17 Diet: 04/30/25 Breakfast General (Regular) Diet Diet Modifications: Nutrition Percent Meal Consumed 100% 05/02/25 18:00 Percent Meal Consumed 50% 05/01/25 12:38 Labs: RBC 2.02 X10^6/uL (4.0-5.2) L 05/02/25 04:30 Hgb 7.3 g/dL (12.0-16.0) L 05/02/25 04:30 Hct 22.1 % (36-46) L 05/02/25 04:30 Creatinine 1.06 mg/dL (0.52-1.04) H 05/02/25 13:28 Electronically Signed by: Bryanna Garcia 05/03/25 11:10 Clinical Dietitian [address] [address]
--- NOTE | 2025-05-03 13:55 | OT.IP.EVAL ---
Current Diagnoses Hypomagnesemia (04/30/25) Past Medical History (Last Reviewed 05/02/25 @ 07:34 by Ángel Duncan MD) Cerebral aneurysm Malignant neoplasm of breast (female), unspecified site (06/25/02) Unspecified essential hypertension (06/25/02) Surgical History (Last Reviewed 05/02/25 @ 07:34 by Ángel Duncan MD) H/O bilateral oophorectomy History of lumpectomy of right breast S/P coil embolization of cerebral aneurysm Occupational Therapy Inpatient Evaluation/Re-Eval M1 PT/OT-IP Prior Functional Status Start: 05/01/25 11:36 Freq: NEEDED Status: Active Protocol: Document 05/01/25 11:15 MB (Rec: 05/01/25 11:48 MB Desktop) Medical Review Prior Functional Status Medical History Yes Reviewed Communication Unsure baseline diet, pt answers most questions Mobility and Gait Pt reports she spends most time in the bed and her assists her with her rollator to the BR. She does not like to walk in the house because she is afraid. It is unclear what she is afraid of Activities of Daily Unclear description today Living and IADL's Social History Household Members spouse Living Arrangements House Number of Floors ( One Floor Floors) Number of Stairs To No steps to enter Enter/Railing? Home Equipment Four Wheel Walker Additional Social Pt does not answer all PLOF and set-up questions, she History Comment states she spends most time in a regular bed M1 PT/OT-IP Prior Functional Status Start: 05/03/25 13:56 Freq: NEEDED Status: Active Protocol: Document 05/03/25 13:56 [facility] (Rec: 05/03/25 14:23 [facility] Desktop) Medical Review Prior Functional Status Medical History Yes Reviewed Communication Unsure baseline diet, pt answers most questions Mobility and Gait Pt reports she spends most time in the bed and her assists her with her rollator to the BR. She does not like to walk in the house because she is afraid. It is unclear what she is afraid of Activities of Daily Pt states mainly able to get dressed while in bed and Living and IADL's just transfers to her wc <>Bed, and Wc <> toilet. Pt states her assists with most ADL needs and all IADL needs. Social History Household Members spouse Living Arrangements House Number of Floors ( One Floor Floors) Number of Stairs To No steps to enter Enter/Railing? Home Environment Standard Height Toilet,Walk in Shower Home Equipment Front Wheel Walker,Four Wheel Walker,Manual Wheelchair M2 OT-IP Current Condition Start: 05/03/25 13:56 Freq: Status: Active Protocol: Document 05/03/25 13:56 [facility] (Rec: 05/03/25 14:23 [facility] Desktop) Occupational Therapy Current Condition Current Condition Evaluation Date 05/03/25 Treatment Diagnosis Hypomagnesium/Hypocalcemia, generalized weakness Diagnosis Onset Date 04/30/25 M3 OT- IP Subjective and Pain Start: 05/03/25 13:56 Freq: Status: Active Protocol: Document 05/03/25 13:56 [facility] (Rec: 05/03/25 14:23 [facility] Desktop) OT- Subjective Occupational Therapy Visit Type Type Initial Evaluation Visit Start Time 13:10 Visit Stop Time 13:55 Occupational Therapy Visit Comments Patient Comments Pt agreed to use bsc and get back to bed. Per nursing pt not able to get HH today dues to difficulty to draw blood from her veins. Pt's reading yesterday 22.1/7.3. Patient/Caregiver TO go home. Goals OT Pain Assessment Pain When Pain Assessed During Mobility Pain Present Pain Present Pain Reported Location All over burning skin Pain Behaviors Facial Grimacing M4 OT- IP ADL's Start: 05/03/25 13:56 Freq: Status: Active Protocol: Document 05/03/25 13:56 [facility] (Rec: 05/03/25 14:23 [facility] Desktop) OT [id number] Comments OT Self-Feeding Pt able to eat her cookie and needing cues to use water Comments to help get residual crumbs off her teeth. Pt having food on her hands when first coming in to see the pt. OT ADL-Grooming Comments OT Grooming Comments Pt needing assist to help wash her hands with wash cloth and able to wash her face after set-up. OT ADL-Oral Care Comments Oral Care Comments Not performed. OT ADL-Dressing General Eval Lower Body Dressing Maximum Assistance Ability Areas Needing Underpants/Brief Assistance OT ADL-Toileting General Evaluation Toileting Ability Maximum Assistance Areas Needing Manage Clothing,Perform Perineal Hygiene Assistance Comments OT Toileting MODA X2 wit FWW to transfer to the [facility]. MAX AX 1 to Comments stand with the FWW while nursing able to assist with hygiene and brief management needs. OT ADL-Bathing Comments OT Bathing Comments Sponge bath or use of rolling shower chair more appropriate at this time. Pt states too scared to get into the shower and usually sponges off with assist from her . M5 OT- IP IADL's Start: 05/03/25 13:56 Freq: Status: Active Protocol: Document 05/03/25 13:56 [facility] (Rec: 05/03/25 14:23 [facility] Desktop) OT-Instrumental Activities of Daily Living Home Safety Awareness Awareness of Need Decreased Awareness for Assistance at Home Ability to Problem Unable to Problem Solve Solve Emergency Situations Medication Management Medication Caregiver Administers Management Money Management Money Management Caregiver Provides Assistance Meal Preparation Meal Preparation Caregiver Provides Assist Midwife And Birth Center Owner Midwife [facility] Birth [facility] Owner Caregiver Provides Assist Driving Driving Caregiver Provides Assist M6 OT- IP Functional Cognition Start: 05/03/25 13:56 Freq: Status: Active Protocol: Document 05/03/25 13:56 [facility] (Rec: 05/03/25 14:23 [facility] Desktop) Cognitive Factors Limiting Selfcare Function Cognitive Ability Level of Alertness Alert,Confusional State Patient Orientation Name,Age,Birthday,Month,Date,Year,Day of Week,Place, Situation Attention Span Capable of Focused Attention,Unable to Sustain Ability Attention Ability to Follow Able to Follow One Step Commands with Increased Time, Commands Able to Follow One Step Commands with Repetition Memory Description Short Term Impaired,Working Impaired Cognitive Comments Cognitive Assessment Pt appears to be hallucinating as seeing someone under Comments the bed and behind her recliner, nursing present when pt made the comments. Pt confused and thought she was in the bathroom when sitting on the BSC. Having to re- remind her of the task at hand. Pt getting very tired and needing concrete steps to follow. OT- Vision and Hearing OT- Vision Assessment Visual Acuity Glasses For Reading Visual Attentiveness WFL Occular Pursuits WFL M7 OT- IP Mobility and Balance Start: 05/03/25 13:56 Freq: Status: Active Protocol: Document 05/03/25 13:56 [facility] (Rec: 05/03/25 14:23 [facility] Desktop) OT- Bed Mobility Assessment Sit to Supine Sit to Supine Assist Maximum Assistance,1 Person Assistance OT-Transfer Assessment Sit to and From Stand Sit to and from Moderate Assistance,Maximum Assistance,1 Person Stand Assistance,2 Person Assistance Transfers Transfer Ability Moderate Assistance,Maximum Assistance,2 Person Assistance Technique Transfer Destination Bed,Bedside Commode,Chair Transfer Technique Stand Step Pivot Devices Transfer Assistive Gait Belt,Front Wheeled Walker Devices Comments Mobility Comments Pt needing from MODA X2 to MAX AX 2 to stand and transfer today. Pt leaning to the right and heavily flexed posture and needing assist for her balance and to help guide the FWW. VC to push up from the armrest of the recliner and BSC. TO place hands on the FWW and to reach back for surfaces prior to sitting down. OT- Balance Assessment Sitting Balance and Reactions Static Sitting Fair Balance Ability Dynamic Sitting Poor Balance Ability Standing Balance and Reactions Static Standing Poor Balance Ability Dynamic Standing Poor Balance Ability M8 OT- IP Objective Assessments Start: 05/03/25 13:56 Freq: Status: Active Protocol: Document 05/03/25 13:56 [facility] (Rec: 05/03/25 14:23 [facility] Desktop) OT Gross Range of Motion Upper Extremity Range of Motion Assessment Bilaterally Impaired OT Strength Upper Extremity Strength Assessment Bilaterally Impaired Comments Strength Comments BUE 3-/5 to 4-/5 from elbow to distal. RUE shoulder flexion 0-20 and LUE 0-45. OT- Coordination Assessment Upper Extremity Finger to Nose Test Left UE Impaired M9 OT- IP Assessment and Plan Start: 05/03/25 13:56 Freq: Status: Active Protocol: Document 05/03/25 13:56 [facility] (Rec: 05/03/25 14:23 [facility] Desktop) OT Summary Assessment and Plan Potential Rehabilitation Fair Potential Analytic Complexity Moderate at Evaluation Summary OT Impairments Pain,Range of Motion,Strength,Balance,Functional Cognition,Functional Mobility,Self-Feeding,Grooming, Dressing,Toileting,Bathing,Toilet Transfers,Shower Transfers,Activity Tolerance Progress Towards Slow Progress due to Pain,Slow Progress due to Medical Goals Issues,Slow Progress due to Activity Tolerance,Slow Progress due to Cognition Assessment Summary Pt MOD complexity and pt aware here due to abnormal labs. However pt appears to be hallucination and seeing other people in the room under the bed and behind the recliner while OT and nurse in the room with her. Pt having decreased strength, endurance, and now needing two person assist for mobility needs. Prior pt was mainly bed bound and just transferred with her assist from wc to bed or toilet. Per pt had been bed bound since having right humerus and left ankle ORIF last year. Hopeful pt able to get HH reading tomorrow as pt was a bit pale and very fatigued today. Pt will benefit from skilled rehab to help improve overall strength, balance , and endurance so able to care for her. Otherwise pt's family may want go consider other options for care if not able to provide enough assist for her. Goals Self-Feeding Goal Independent Grooming Goal Independent Dressing Goal Moderate Assistance Toileting Goal Moderate Assistance Bathing Goal Moderate Assistance Toilet Transfer Goal Minimal Assistance Days to Meet Goals 7 Frequency of Treatment Other frequency 5x/week Treatment Plan OT Treatment Plan ADL Training,Functional Cognition Training,Functional Mobility,Patient/Family Education,Discharge Planning Other Treatment SLUMS Recommendations and Next Treatment Focus Discharge Recommendations OT Discharge SNF Rehab Recommendations Transportation Needs Wheelchair/Cabulance at Discharge
--- NOTE | 2025-05-03 14:07 | PM.PN.1 ---
Subjective Subjective Interval history: Overnight events: She would some agitation and received benzodiazepines as needed in his now quite somnolent. She was slept a lot of the morning. Subjective: She was arousable and denies any pain. Her left arm is somewhat swollen from multiple lab draw attempts yesterday. Exam Vital Signs (past 8 hours): - 05/03/25 07:00 05/03/25 11:00 Temperature 97 F L 96.3 F L Pulse Rate 121 H 75 Respiratory Rate 21 21 Blood Pressure 114/80 123/73 Pulse Oximetry 93 98 Oxygen Delivery Method Room Air Oxygen Flow Rate 0 Narrative Exam Narrative: NAD, somnolent but arousable. Fluent speech. Lungs are clear, normal rate and effort. Heart is regular, no murmur gallop or rub. Abdomen is soft, non distended. Extremities are free of edema. Multiple areas of ecchymosis over arms and legs. Objective Labs 05/02/25 04:30 05/02/25 13:28 Labs: Laboratory Results - last 24 hr 05/02/25 14:08 Blood Type B Positive Antibody Screen Negative Crossmatch See Detail [facility] Medical History Cerebral aneurysm Unspecified essential hypertension (06/25/02) Malignant neoplasm of breast (female), unspecified site (06/25/02) Surgical History H/O bilateral oophorectomy History of lumpectomy of right breast S/P coil embolization of cerebral aneurysm Family History Brother Cancer Mother Cerebral aneurysm Social History household members: spouse alcohol intake: current Assessment & Plan Assessment & Plan narrative: 1. Severe hypomagnesemia, improved. 2. Severe hypocalcemia, improving. 3. BRANDON, improving. Her baseline creatinine appears to be around 0.8-0.97. 4. Macrocytic anemia, active. Quite possibly nutritional in etiology. B12 and folate are both well above normal ranges. MCV is 109.8. 5. Metabolic acidosis, improved. Likely due to GI losses. Anticipate this will improve with hydration. 6. Chronic diarrhea, chronic and active. Unclear etiology. Reportedly she has had some degree of workup, but is unable to give details as to when this was done. 7. Hypertension, stable. Holding antihypertensives as she has borderline low blood pressures. 8. Asthma/eczema, stable Takes Dupixent as an outpatient. 9. Somnolent secondary to benzodiazepine is given for agitation last night. Active. Plan: -given that we can not obtain blood work from her and that she still appears to be acutely ill and likely anemic and hypokalemic. We will keep her for another night, we will place a midline tomorrow for access for medications as well as lab draws. In the meantime we will use peripheral IV to give her IV fluid today, and give her oral potassium and magnesium. -she requires another night in the hospital for anemia, hypokalemia, and hypomagnesemia. Time-Based Coding :: [TOTAL MINUTES] spent with patient and on the chart (including review of chart, obtaining history, exam, reviewing outside data, placing orders, documenting exam and treatment plan, and counseling patient) on [DATE].
[2025-05-03 15:00] VITALS: BP 102/66; PULSE 113; RESP 20; TEMP 36.4; O2SAT 98
[2025-05-03] MEDS: MONTELUKAST 10 MG TABLET PO (17:00)
[2025-05-03 19:45] VITALS: BP 108/63; PULSE 70; RESP 18; TEMP 36.3; O2SAT 94
[2025-05-03] MEDS: ATORVASTATIN 20 MG TABLET 80 MG PO (20:17)
--- NOTE | 2025-05-03 22:49 | PC.NURSE ---
hourly shift patient CIWA score was a 5, due to hallucinations, but patient has had hallucinations since admission along with anxiety. This RN administered Ativan per EMAR 2100 scheduled medications. Patient fell asleep shortly after medications administration. Patient requested to not be disturbed if she is asleep, RN asked patient if we could still to VS [id number] since she is on telemetry. Patient approved.
[2025-05-04] VITALS (7 sets, daily range): BP systolic 102–118; BP diastolic 57–76; PULSE 98–121; RESP 15–20; TEMP 36.1–36.8; O2SAT 94–100
[2025-05-04] MEDS: diphenhydrAMINE 25 MG TABLET 50 MG PO ×2 (06:16→20:51)
[2025-05-04] MEDS: CALCIUM CARBONATE 500 MG TAB 1000 MG PO ×2 (09:31→20:51)
[2025-05-04] MEDS: MAGNESIUM OXIDE 400 MG TABLET PO ×2 (09:31→20:51)
[2025-05-04 09:58] LABS: Alanine Aminotransferase 20 IU/L (<35); Albumin 2.5 g/dL (3.5-5.0); Albumin Globulin Ratio 0.9 (1.0-2.8); Alkaline Phosphatase 151 U/L (38-126); Blood Urea Nitrogen 14 mg/dL (7-17); Calcium 8.5 mg/dL (8.4-10.2); Carbon Dioxide 14 mmol/L (22-32); Chloride 117 mmol/L (98-107); Estimated Glomerular Filt Rate > 60 mL/min (>60); Globulin 2.9 g/dL (1.7-4.1); Glucose 96 mg/dL (70-99); Potassium 4.7 mmol/L (3.4-5.1); Sodium 146 mmol/L (137-145); Total Protein 5.4 g/dL (6.3-8.2)
[2025-05-04 10:01] LABS: HEMOLYSIS 79 (0-50)
[2025-05-04 10:57] LABS: Hematocrit 27.9 % (36-46); Hemoglobin 9.1 g/dL (12.0-16.0); Mean Corpuscular Volume 106.5 fL (80-100)
[2025-05-04 10:58] LABS: Mean Corpuscular HGB Conc 32.7 % (30-36); Mean Corpuscular Hemoglobin 34.8 PG (26-34); Platelet Count 243 X10^3/uL (150-400)
--- NOTE | 2025-05-04 10:59 | CM.DPC ---
DCP Cont. Reviewed EMR and team rounds for pt's status updates. Per Hospitalist, pt will need 1-more day inpt for labs and continued hydration. Monitoring for final d/c needs.
[2025-05-04 11:06] LABS: Magnesium 1.2 mg/dL (1.6-2.3)
--- NOTE | 2025-05-04 11:40 | OT.IP.TRT ---
Current Diagnoses Hypomagnesemia (04/30/25) Occupational Therapy Treatment Note M2 OT-IP Current Condition Start: 05/03/25 13:56 Freq: Status: Active Protocol: Document 05/03/25 13:56 [facility] (Rec: 05/03/25 14:23 [facility] Desktop) Occupational Therapy Current Condition Current Condition Evaluation Date 05/03/25 Treatment Diagnosis Hypomagnesium/Hypocalcemia, generalized weakness Diagnosis Onset Date 04/30/25 M3 OT- IP Subjective and Pain Start: 05/03/25 13:56 Freq: Status: Active Protocol: Document 05/04/25 11:41 [facility] (Rec: 05/04/25 11:59 [facility] Desktop) OT- Subjective Occupational Therapy Visit Type Type Treatment Note Visit Start Time 09:25 Visit Stop Time 11:40 Notes Pt seen from [id number] and [id number] Occupational Therapy Visit Comments Patient Comments Pt agreed to do SLUMS and pt's present for caregiver training prior to lunch. Patient/Caregiver TO go home. Goals OT Pain Assessment Pain When Pain Assessed During Mobility Pain Present Pain Present Pain Reported Location All over burning skin Pain Behaviors Facial Grimacing,Holding Area M4 OT- IP ADL's Start: 05/03/25 13:56 Freq: Status: Active Protocol: Document 05/04/25 11:41 [facility] (Rec: 05/04/25 11:59 [facility] Desktop) OT [id number] Comments OT Self-Feeding Not at meal time. Comments OT ADL-Dressing General Eval Lower Body Dressing Maximum Assistance Ability Areas Needing Underpants/Brief,Socks Assistance OT ADL-Toileting General Evaluation Toileting Ability Maximum Assistance Areas Needing Manage Clothing,Perform Perineal Hygiene Assistance Comments OT Toileting MAX AX 1 to stand to the FWW from the toilet and Comments needing assist for all hygiene nd brief management needs. Per pt's , pt does her own hygiene needs at home. OT ADL-Bathing Comments OT Bathing Comments Use of rolling shower chair more appropriate at this time. M5 OT- IP IADL's Start: 05/03/25 13:56 Freq: Status: Active Protocol: Document 05/03/25 13:56 [facility] (Rec: 05/03/25 14:23 [facility] Desktop) OT-Instrumental Activities of Daily Living Home Safety Awareness Awareness of Need Decreased Awareness for Assistance at Home Ability to Problem Unable to Problem Solve Solve Emergency Situations Medication Management Medication Caregiver Administers Management Money Management Money Management Caregiver Provides Assistance Meal Preparation Meal Preparation Caregiver Provides Assist Center Manager Center Manager Caregiver Provides Assist Driving Driving Caregiver Provides Assist M6 OT- IP Functional Cognition Start: 05/03/25 13:56 Freq: Status: Active Protocol: Document 05/04/25 11:41 [facility] (Rec: 05/04/25 11:59 [facility] Desktop) Cognitive Factors Limiting Selfcare Function Cognitive Ability Level of Alertness Alert,Confusional State Patient Orientation Name,Age,Birthday,Month,Date,Year,Day of Week,Place, Situation Attention Span Capable of Focused Attention,Unable to Sustain Ability Attention Ability to Follow Able to Follow One Step Commands with Increased Time, Commands Able to Follow One Step Commands with Repetition Cognitive Tests SLUMS Pt scored 8/30 which implies dementia, however magnesium reading still low at 1.2 and may be affecting her cognition at this time. To reassess as pt improves medically. Pt able to add 20+3, able to states 12 animals in one minute, able to pick out the triangle and phoebe the largest figure. Cognitive Comments Cognitive Assessment Pt having low magnesium 1.2 which may also be affecting Comments her cognition at this time. Pt needing concrete, tactile cues to follow. MAX vc for safety awareness for the FWW. M7 OT- IP Mobility and Balance Start: 05/03/25 13:56 Freq: Status: Active Protocol: Document 05/04/25 11:41 [facility] (Rec: 05/04/25 11:59 [facility] Desktop) OT- Bed Mobility Assessment Sit to Supine Sit to Supine Assist Maximum Assistance Scooting Scooting to Edge of Maximum Assistance Bed OT-Transfer Assessment Sit to and From Stand Sit to and from Moderate Assistance,Maximum Assistance,1 Person Stand Assistance Transfers Transfer Ability Moderate Assistance,Maximum Assistance,2 Person Assistance Technique Transfer Destination Bed,Chair,Toilet Transfer Technique Stand Step Pivot Devices Transfer Assistive Gait Belt,Front Wheeled Walker Devices Comments Mobility Comments Able to show pt's how to use the gait belt and he states they do not use it at home. Able to show how to assist pt to scoot to the edge of the bed and needing MAXAX1. MAXA X 1 to get up from the bed as well. MAX AX 1 to stand to the FWW and able to walk into the doorway with assist from her for balance and to guide the FWW. Pt getting too tired and OT having to jump in to assist. After use of the toilet nursing aid and nurse also assisting pt to get to the recliner. Pt getting SOB and needing cues to slow her breathing down. O2 reading hard to obtain as her fingers are cold. At this time best to just to transfers to the [facility] with 2 person assist. When assisting pt to stand having to block her knees so able to come to stand. OT- Balance Assessment Sitting Balance and Reactions Static Sitting Poor Balance Ability Dynamic Sitting Poor Balance Ability Standing Balance and Reactions Static Standing Poor Balance Ability Dynamic Standing Poor Balance Ability M8 OT- IP Objective Assessments Start: 05/03/25 13:56 Freq: Status: Active Protocol: Document 05/03/25 13:56 [facility] (Rec: 05/03/25 14:23 [facility] Desktop) OT Gross Range of Motion Upper Extremity Range of Motion Assessment Bilaterally Impaired OT Strength Upper Extremity Strength Assessment Bilaterally Impaired Comments Strength Comments BUE 3-/5 to 4-/5 from elbow to distal. RUE shoulder flexion 0-20 and LUE 0-45. OT- Coordination Assessment Upper Extremity Finger to Nose Test Left UE Impaired M9 OT- IP Assessment and Plan Start: 05/03/25 13:56 Freq: Status: Active Protocol: Document 05/04/25 11:41 [facility] (Rec: 05/04/25 11:59 [facility] Desktop) OT Summary Assessment and Plan Potential Rehabilitation Fair Potential Analytic Complexity Moderate at Evaluation Summary OT Impairments Pain,Range of Motion,Strength,Balance,Functional Cognition,Functional Mobility,Self-Feeding,Grooming, Dressing,Toileting,Bathing,Toilet Transfers,Shower Transfers,Activity Tolerance Progress Towards Slow Progress due to Pain,Slow Progress due to Medical Goals Issues,Slow Progress due to Activity Tolerance,Slow Progress due to Cognition Assessment Summary Pt still having magnesium which may be contributing to her confusion and fatigue. Able to do caregiver training with pt's for transfer and toileting needs. Pt's states pt does her own hygiene needs at home. Pt getting too tired and unsteady and OT needing to assist pt's to assist pt today, therefore needing two person assist for mobility and ADL needs. OT strongly recommends pt for SNF at this time. Pt's feels that his set up at home is much more conducive to assist her better. Pt still having low magnesium levels and hopeful pt to improve and be able to go home with 24/7 assist and home ancelmo. Goals Self-Feeding Goal Independent Grooming Goal Independent Dressing Goal Moderate Assistance Toileting Goal Minimal Assistance Bathing Goal Moderate Assistance Toilet Transfer Goal Minimal Assistance Days to Meet Goals 15 Frequency of Treatment Other frequency 5x/week Treatment Plan OT Treatment Plan ADL Training,Functional Cognition Training,Functional Mobility,Patient/Family Education,Discharge Planning Discharge Recommendations OT Discharge SNF Rehab Recommendations Transportation Needs Wheelchair/Cabulance at Discharge
[2025-05-04] MEDS: ALBUTEROL 2.5 MG/3 ML NEB (ADULT) INH (11:53)
[2025-05-04] MEDS: DEXTROSE 5% WATER 1,000 ML 84 ML IV (12:07)
[2025-05-04] MEDS: ESCITALOPRAM 10 MG TABLET PO (12:28)
[2025-05-04] MEDS: MAGNESIUM SULFATE 2 GM/50 ML PIGGYBACK IV (12:28)
[2025-05-04] MEDS: ASPIRIN EC 81 MG TABLET PO ×2 (12:28→20:50)
--- NOTE | 2025-05-04 13:01 | P.PN_ITS ---
Subjective Subjective Interval history: Summary: 69-year-old female with history of a left-sided cerebral aneurysms status post coiling remotely, hypertension, PTSD, hyperlipidemia, depression, history of left trimalleolar fracture status post repair last year, asthma and eczema on Dupixent who has been having chronic diarrhea over the last 9 months who was sent by her PCP to the ED for abnormal labs. She presented to the emergency department at about 4:00 a.m. this morning after her PCP contacted her about at abnormal labs. She was told her magnesium and calcium were very low and she should go to the emergency department. She would complained of feeling weak but had no other complaints. Specifically no chest pain or complaints of palpitations. In our emergency department, labs were repeated and revealed a magnesium level of less than 0.2. Mildly elevated AST of 44, mildly elevated alkaline phosphatase at 146. Albumin of 3.0. Calcium of 4.9. Creatinine of 1.57. Hemoglobin was low at 8.4, MCV 111.9, white count 11.3, platelets 322. In the emergency department she received 2 g of IV magnesium and 1 amp of calcium gluconate. Follow-up labs are presently pending. Patient reports that she has been in bed for most of the last year. She states that her appetite has been poor but she does not believe she is lost much weight. She states she does occasionally have nausea and vomiting. She does periodically dry heave. She states her diarrhea will just come out unexpectedly. She does not have control of her bowel function. This is a big part of the reason she stays in bed. She believes she had a colonoscopy but can not recall when. She states she has a bit confused about everything she has had done. She feels her would be more informed about her medical care. She has been having some myoclonic jerking. No chest pain or palpitations. No shortness of breath. She has been treated for anemia with a transfusion and electrolyte repletion with potassium and magnesium as well as having a midline placed for access as she was very difficult to draw labs from. She was on chronic biologic agent for her severe eczema,Dexicent. This is known to cause chronic diarrhea. She has not had any clinical evidence of rectal bleeding before or during the hospitalization. She was being treated for urinary tract infection, this is of unclear contribution to her current situation. In talking to her she has been chronically debilitated for years. She adamantly declined intermediate facility. S: She was doing a little bit better, still weak. She denies any rectal bleeding since being in the hospital. No abdominal pain. Exam Vital Signs (past 8 hours): - 05/04/25 06:54 05/04/25 08:00 05/04/25 11:56 Temperature 97.9 F 98.2 F Pulse Rate 121 H 119 H 110 H Respiratory Rate 20 18 16 Blood Pressure 106/60 118/69 Pulse Oximetry 98 100 98 Oxygen Delivery Method Room Air Oxygen Flow Rate 0 Fraction of Inspired Oxygen 21 05/04/25 12:00 Temperature 98.2 F Pulse Rate 98 H Respiratory Rate 16 Blood Pressure 107/76 Pulse Oximetry 98 Oxygen Delivery Method Oxygen Flow Rate Fraction of Inspired Oxygen Fraction of Inspired Oxygen 21 SaO2/FiO2 Ratio 461 Oxygen Delivery Method Room Air Oxygen Flow Rate 0 Narrative Exam Narrative: Chronically ill, pale, slow speaking. Lungs are clear with normal effort Heart is regular without murmur Abdomen is soft, nontender Extremities with trace edema Multiple areas of ecchymosis especially the left upper arm from lab attempts. Objective Labs 05/05/25 03:50 05/05/25 03:50 Labs: Laboratory Results - last 24 hr 05/04/25 05/04/25 08:50 10:53 WBC 12.3 H RBC 2.62 L Hgb 9.1 L Hct 27.9 L MCV 106.5 H D MCH 34.8 H MCHC 32.7 RDW 19.0 H Plt Count 243 Sodium 146 H Potassium 4.7 Chloride 117 H Carbon Dioxide 14 L BUN 14 Creatinine 0.77 Estimated GFR > 60 BUN/Creatinine Ratio 18.2 Glucose 96 Calcium 8.5 Magnesium 1.2 L Total Bilirubin 0.9 AST 56 H ALT 20 Alkaline Phosphatase 151 H Total Protein 5.4 L Albumin 2.5 L Globulin 2.9 Albumin/Globulin Ratio 0.9 L [facility] Medical History Cerebral aneurysm Unspecified essential hypertension (06/25/02) Malignant neoplasm of breast (female), unspecified site (06/25/02) Surgical History H/O bilateral oophorectomy History of lumpectomy of right breast S/P coil embolization of cerebral aneurysm Family History Brother Cancer Mother Cerebral aneurysm Social History household members: spouse Smoking Status: Unknown if ever smoked alcohol intake: current Assessment & Plan Assessment & Plan narrative: 1. Severe hypomagnesemia, improved. 2. Severe hypocalcemia, improving. 3. BRANDON, improved. Her baseline creatinine appears to be around 0.8-0.97. 4. Macrocytic anemia, active. Quite possibly nutritional in etiology. B12 and folate are both well above normal ranges. MCV is 109.8. 5. Metabolic acidosis, improved. Likely due to GI losses. Anticipate this will improve with hydration. 6. Chronic diarrhea, chronic and active. Unclear etiology. Reportedly she has had some degree of workup, but is unable to give details as to when this was done. 7. Hypertension, stable. Holding antihypertensives as she has borderline low blood pressures. 8. Asthma/eczema, stable Takes Dupixent as an outpatient. 9. Somnolent secondary to benzodiazepine is given for agitation last night. Active. PLAN: -attempt to get labs -Monitor renal function and Hg. -Monitor electrolytes. Time-Based Coding :: [TOTAL MINUTES] spent with patient and on the chart (including review of chart, obtaining history, exam, reviewing outside data, placing orders, documenting exam and treatment plan, and counseling patient) on [DATE].
--- NOTE | 2025-05-04 15:20 | PT.IPTN ---
Current Diagnoses Hypomagnesemia (04/30/25) Physical Therapy Treatment Note M2 PT-IP Current Condition Start: 05/01/25 11:36 Freq: NEEDED Status: Active Protocol: Document 05/01/25 11:15 MB (Rec: 05/01/25 11:48 MB Desktop) Physical Therapy Current Condition Current Condition Evaluation Date 05/01/25 Treatment Diagnosis Abnormal labs, decreased mobility M3 PT-IP Subjective Start: 05/01/25 11:36 Freq: NEEDED Status: Active Protocol: Document 05/04/25 15:20 AB (Rec: 05/04/25 16:37 AB [id number]) Subjective Physical Therapy Visit Type Type Treatment Note Visit Start Time 15:20 Visit Stop Time 15:55 Number of PEDIATRIC PHYSICAL THERAPY ASSISTANT Visits 0 Physical Therapy Visit Comments Patient Comments agreeable to do PT M4 PT-IP Mobility and Gait Start: 05/01/25 11:36 Freq: NEEDED Status: Active Protocol: Document 05/04/25 15:20 AB (Rec: 05/04/25 16:37 AB [id number]) PT-Bed Mobility Assessment Supine to Sit Supine to Sit Maximum Assistance,1 Person Assistance,Head of Bed Elevated,Bedrails Scooting Scooting to Edge of Maximum Assistance Bed PT-Transfer Assessment Sit to and From Stand Sit to and from Maximum Assistance,1 Person Assistance,2 Person Stand Assistance,Use of Upper Extremities Equipment Transfer Assistive Gait Belt,Front Wheeled Walker Device Orthotic/Prosthetic No Devices or Brace: Transfers Transfer Destination Chair Transfer Technique Stand Step Pivot Transfer Ability Level of Assist Maximum Assistance,Use of Upper Extremities Comments Mobility Comments pt in bed asleep. woke pt up and agreed to get. up. supine to sit max A and max cues with HOB elevated. pt able to scoot to EOB max A and max cues. CGA for sitting balance on EOB. sit to stand from EOB requiring max A x 1-2 and max cues but only able to stand for ~ 2 sec and pt sat back down. pt agreed to stand again and required max A x 1-2 and max cues. pt able to step transfer to chair using FWW max A x 1-2 and max cues. max A for controlled descent to chair. (+) SOB. O2 sat: 97% HR: 118 . pt wants to stay up on the chair. positioned pt on the chair. call light and table placed within reach. M5 PT-IP Objective Assessments Start: 05/01/25 11:36 Freq: NEEDED Status: Active Protocol: Document 05/01/25 11:15 MB (Rec: 05/01/25 11:48 MB Desktop) Orientation Orientation/Cognition Level of Alertness Alert Orientation Name,Age,Birthday,Month,Year,Day of Week,Place Language Function No Deficits Noted Ability Safety Awareness Decreased Safety Awareness Memory Description Short Term Impaired,Intermediate Impaired Gross Range of Motion Upper Extremity ROM Impairments Defer to OT Lower Extremity ROM Assessment Bilaterally Impaired Impairments Left ankle with limited ROM and pt reports old fracture , left second toe is red and adducted over great toe Strength Lower Extremity Strength Knee 3/5 B knee extension Ankle Left ankle not tested and right DF 3+/5 Comments Strength Comments Limited B toe mobility Sensation Assessment Comments Sensation Comments NT, many areas of skin changes over her body, left brachial IV is red and swollen and nsg reports it is actually better Other Assessments Other Other Assessments Increased left PF tension and decreased ankle DF M6 PT-IP Treatment Start: 05/01/25 11:36 Freq: NEEDED Status: Active Protocol: Document 05/04/25 15:20 AB (Rec: 05/04/25 16:37 AB [id number]) Physical Therapy Treatment Education Education Provided Safety M7 PT-IP Assessment and Plan Start: 05/01/25 11:36 Freq: NEEDED Status: Active Protocol: Document 05/04/25 15:20 AB (Rec: 05/04/25 16:37 AB [id number]) PT Summary Assessment and Plan Potential Rehabilitation Fair Potential Summary Impairments Pain,ROM,Strength,Balance,Coordination,Sensation,Tone, Cognition,Bed Mobility,Transfers,Gait,Activity Tolerance Progress Towards Slow Progress due to Medical Issues,Slow Progress due Goals to Activity Tolerance,Slow Progress - Other Assessment Summary pt more alert and able to follow directions better today compared to yesterday. pt requiring max A x 1 for bed mobility and max A x 1-2 for transfers using FWW. pt will need 24/7 assist and will benefit from SNF rehab. will continue to assess.. Goals Bed Mobility Goal Independent Transfer Goal Standby Assistance,Front Wheeled Walker Gait Goal Standby Assistance,Front Wheel Walker Gait Distance 50 Days to Meet Goals 10 Frequency of Treatment Frequency Of Once a Day Treatment Treatment Plan Physical Therapy Bed Mobility Training,Transfer Training,Gait Training, Treatment Plan Therapeutic Exercise,Balance Retraining,Discharge Planning,Hot or Cold Pack,Neuromuscular Re-ed, Coordination Retraining,Manual Therapy Recommendations To Nursing Amount of Assist 2 Person Assist Needed Discharge Recommendations PT Discharge SNF Rehab Recommendations Transportation Needs Wheelchair/Cabulance at Discharge - PT assist 2
--- NOTE | 2025-05-04 16:48 | DI.CT.S_ITS ---
PROCEDURE: CT CHEST ABD PEL W CON INDICATIONS: anemia TECHNIQUE: After the administration of intravenous contrast, 5 mm thick sections acquired from the lung apices to the symphysis. 5 mm coronal and sagittal reformats were performed, with additional 7 mm MIP reformats through the lungs. For radiation dose reduction, the following was used: automated exposure control, adjustment of mA and/or kV according to patient size. COMPARISON: None. FINDINGS: Image quality: Excellent. CHEST: Lower Neck: No enlarged lymph nodes. Thyroid: No thyroid nodules which require sonographic follow up, per consensus guidelines. Axillae: No enlarged lymph nodes. Chest Wall: Unremarkable. Lungs and Pleura: Mild bilateral effusions with areas of superimposed consolidative opacity. Heart: Heart size is normal. No pericardial effusion. Thoracic Vessels: The aorta and pulmonary arteries demonstrate normal size. Mediastinum and Ernestina: No enlarged lymph nodes. Esophagus: No wall thickening. Mild hiatal hernia. ABDOMEN: Liver: No solid mass. Steatosis. Liver is prominent measuring 18 3 cm. Gallbladder: No radiopaque gallstones or wall thickening. Biliary ducts: No biliary dilation. Pancreas: No ductal dilation. Spleen: Size is within normal limits. Adrenal Glands: No adrenal nodules. Kidneys and Ureters: No hydronephrosis. No solid mass. No complex renal cystic lesion which requires follow up. Stomach and Bowel: Normal colonic caliber, without significant wall thickening. Scattered diverticula change Peritoneum: No abnormal intraperitoneal fluid. No free air. Ventral Wall: No significant ventral hernia. Abdominal Nodes: No retroperitoneal or mesenteric adenopathy by size criteria. Vessels: Aorta and inferior vena cava are normal in size. PELVIS: Pelvic Organs: Unremarkable. Bladder: Prominent air is present in the non dependent bladder. Pelvic Nodes: No enlarged lymph nodes. Miscellaneous: No inguinal hernias are seen. Bones: No aggressive osseous abnormality. Compression deformities are present T9 and L1. They appear chronic. IMPRESSION: Mild bilateral effusions with superimposed opacities. The latter may represent atelectasis versus developing pneumonia. Hepatomegaly with steatosis. Diverticulosis. Dictated by: Ama Gillis M.D. on 05/04/2025 at 17:31 Approved by: Ama Gillis M.D. on 05/04/2025 at 17:33
[2025-05-04] MEDS: MONTELUKAST 10 MG TABLET PO (17:07)
[2025-05-04] MEDS: THIAMINE 100 MG in SODIUM CHLORIDE 0.9% 100 ML 404 MG IV (17:32)
[2025-05-04 17:33] LABS: Hematocrit 26.8 % (36-46); Hemoglobin 9.0 g/dL (12.0-16.0)
[2025-05-04] MEDS: ACETAMINOPHEN 325 MG TABLET 650 MG PO (18:06)
[2025-05-04] MEDS: PEG3350/SOD SULF,BICARB,CL/KCL 4,000 ML SOLUTION 2000 ML PO (19:00)
[2025-05-04] MEDS: ATORVASTATIN 20 MG TABLET 80 MG PO (20:50)
[2025-05-05] VITALS: BP 106/52; PULSE 107; RESP 15; TEMP 36.2; O2SAT 96
[2025-05-05 04:00] VITALS: BP 99/60; PULSE 108; RESP 16; TEMP 36.4; O2SAT 100
--- NOTE | 2025-05-05 04:51 | PC.NURSE ---
Addendum entered by Kacie Fiore R.N. 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 Despite staffs constant reminders and encouragement, Patient desired sleep over taking the prescribed bowel prep (go-lytly).
[2025-05-05 04:53] LABS: Hematocrit 25.0 % (36-46); Hemoglobin 8.5 g/dL (12.0-16.0); Mean Corpuscular HGB Conc 34.2 % (30-36); Mean Corpuscular Hemoglobin 36.0 PG (26-34); Mean Corpuscular Volume 105.2 fL (80-100); Platelet Count 231 X10^3/uL (150-400)
[2025-05-05 05:07] LABS: Blood Urea Nitrogen 17 mg/dL (7-17); Calcium 8.3 mg/dL (8.4-10.2); Carbon Dioxide 21 mmol/L (22-32); Chloride 108 mmol/L (98-107); Estimated Glomerular Filt Rate > 60 mL/min (>60); Glucose 76 mg/dL (70-99); HEMOLYSIS < 15 (0-50); Magnesium 1.7 mg/dL (1.6-2.3); Potassium 4.3 mmol/L (3.4-5.1); Sodium 135 mmol/L (137-145)
[2025-05-05] MEDS: diphenhydrAMINE 25 MG TABLET 50 MG PO (05:57)
[2025-05-05] MEDS: PANTOPRAZOLE DR 20 MG TABLET PO (05:57)
[2025-05-05] MEDS: DEXTROSE 5% WATER 1,000 ML 84 ML IV (06:16)
[2025-05-05 08:00] VITALS: BP 107/65; PULSE 116; RESP 18; TEMP 35.9; O2SAT 92
--- NOTE | 2025-05-05 10:10 | OT.IPNOTE ---
Pt to have endoscopy today therefore hold therapy today.
--- NOTE | 2025-05-05 10:11 | PT-IP ANOTE ---
Pt's Hgb dropped. Pt discussed in rounds today and she is going for endoscopy to determine reason for blood loss per attending. Rec is to hold PT today and PT is in agreement as it appears she is doing worse functionally over the past few PT treatments in setting of acute medical presentation.
--- NOTE | 2025-05-05 10:33 | CM.DPC ---
DCP Cont. Reviewed EMR and team rounds for pt's status updates. Per Hospitalist, pt will be taken to the OR today for both upper and lower endoscropies due to continued internal bleeding. Anticipate home d/c in another 2-days back to [place]. Will likely need a ferry pass.
[2025-05-05] MEDS: MAGNESIUM OXIDE 400 MG TABLET PO (10:42)
[2025-05-05] MEDS: CALCIUM CARBONATE 500 MG TAB 1000 MG PO (10:42)
[2025-05-05] MEDS: ESCITALOPRAM 10 MG TABLET PO (10:43)
[2025-05-05] MEDS: THIAMINE 100 MG in SODIUM CHLORIDE 0.9% 100 ML 404 MG IV (10:43)
[2025-05-05] MEDS: ASPIRIN EC 81 MG TABLET PO (10:43)
[2025-05-05 12:27] VITALS: BP 117/79; PULSE 99; RESP 15; TEMP 36.1; O2SAT 100
--- NOTE | 2025-05-05 13:41 | PC.NURSE ---
Pt stated that she was seeing ants crawling along the edge of the bed and asked if I and pt's spouse could see them. Reoriented pt, pt shrugged and turned back to lunch. CIWA 4. No further information provided by patient when asked.
--- NOTE | 2025-05-05 14:58 | P.DS_ITS ---
History of Present Illness History of Present Illness Date Patient Seen: 05/05/25 Chief complaint: 4am call of Low level magnesium and calcium Narrative: Chief complaint: Severely low magnesium and electrolytes secondary to chronic diarrhea History of present illness: 04/30:69-year-old female with history of a left-sided cerebral aneurysms status post coiling remotely, hypertension, PTSD, hyperlipidemia, depression, history of left trimalleolar fracture status post repair last year, asthma and eczema on Dupixent who has been having chronic diarrhea over the last 9 months who was sent by her PCP to the ED for abnormal labs. She presented to the emergency department at about 4:00 a.m. this morning after her PCP contacted her about at abnormal labs. She was told her magnesium and calcium were very low and she should go to the emergency department. She would complained of feeling weak but had no other complaints. Specifically no chest pain or complaints of palpitations. In our emergency department, labs were repeated and revealed a magnesium level of less than 0.2. Mildly elevated AST of 44, mildly elevated alkaline phosphatase at 146. Albumin of 3.0. Calcium of 4.9. Creatinine of 1.57. Hemoglobin was low at 8.4, MCV 111.9, white count 11.3, platelets 322. In the emergency department she received 2 g of IV magnesium and 1 amp of calcium gluconate. Follow-up labs are presently pending. Patient reports that she has been in bed for most of the last year. She states that her appetite has been poor but she does not believe she is lost much weight. She states she does occasionally have nausea and vomiting. She does periodically dry heave. She states her diarrhea will just come out unexpectedly. She does not have control of her bowel function. This is a big part of the reason she stays in bed. Hospital course: 05/01-05/05: Patient gradually improved with repletion of electrolytes and fluids parenterally her diet was advanced to normal diet no longer having diarrhea and wants to go home. Review of systems: No fever or chills No diarrhea No abdominal pain No shortness a breath Physical exam: Elderly female alert very conversant and wanting to go home HEENT unremarkable No labored respirations Abdomen nondistended Extremities no edema Neuro nonfocal Assessment and plan: Severe hypomagnesemia with repletion to normal and electrolytes in satisfactory tolerating diet. Patient is bed-bound does transfer to wheelchair caregiver his . Disposition will discharge home and follow up with [facility] [facility] therapy for improving gait training and strengthening 35 minutes were involved in the management of this patient [id number] discussing disposition and goals of care reviewing previous notation labs and imaging Discharge Providers Provider Date of admission: 04/30/25 09:13 Discharge Date: 05/05/25 Consults: 04/30/25 09:18 Consult to Dietitian, Adult Routine Comment: Reason For Exam: Severe electrolyte derangement dt chronic diarrhea Consult to Physical Therapy Evaluate & Treat Comment: Physician Instructions: Evaluate and Treat 05/03/25 13:02 Consult to Occupational Therapy Evaluate & Treat Comment: Physician Instructions: Evaluate and treat Discharge provider: Martin Cannon MD Exam Vital Signs (past 8 hours): - 05/05/25 08:00 05/05/25 12:27 Temperature 96.6 F L 97.0 F L Pulse Rate 116 H 99 H Respiratory Rate 18 15 Blood Pressure 107/65 117/79 Pulse Oximetry 92 100 Oxygen Flow Rate 0 0 Fraction of Inspired Oxygen 21 SaO2/FiO2 Ratio 461 Oxygen Delivery Method Room Air Oxygen Flow Rate 0 Objective Labs 05/05/25 03:50 05/05/25 03:50 Labs: Laboratory Results - last 24 hr 05/04/25 05/05/25 17:27 03:50 WBC 8.8 RBC 2.37 L Hgb 9.0 L 8.5 L Hct 26.8 L 25.0 L MCV 105.2 H MCH 36.0 H MCHC 34.2 RDW 18.7 H Plt Count 231 Sodium 135 L D Potassium 4.3 Chloride 108 H Carbon Dioxide 21 L BUN 17 Creatinine 0.95 Estimated GFR > 60 BUN/Creatinine Ratio 17.9 Glucose 76 Calcium 8.3 L Magnesium 1.7 PFSH Medical History Cerebral aneurysm Unspecified essential hypertension (06/25/02) Malignant neoplasm of breast (female), unspecified site (06/25/02) Surgical History H/O bilateral oophorectomy History of lumpectomy of right breast S/P coil embolization of cerebral aneurysm Family History Brother Cancer Mother Cerebral aneurysm Social History household members: spouse alcohol intake: current Discharge Plan Discharge Plan Patient Disposition: Home Discharge orders & Medications Prescriptions: Continued propranolol 10 MG tablet 10 mg PO BID Qty: 180 1RF omeprazole 20 MG tablet,delayed release (DR/EC) 20 mg PO QDAY Qty: 90 1RF atorvastatin 80 mg tablet 80 mg PO DAILY amlodipine 5 mg tablet 5 mg PO DAILY albuterol sulfate 90 mcg/actuation HFA aerosol inhaler 2 puff INHALATION Q6H PRN (Reason: wheezing) spironolactone 25 MG tablet 25 mg PO DAILY losartan 100 mg tablet 100 mg PO DAILY aspirin 81 mg Tablet,Delayed Release (Dr/Ec) 81 mg PO BID Qty: 90 0RF polyethylene glycol 3350 17 gram Powder In Packet 17 g PO DAILY PRN (Reason: constipation) Qty: 100 0RF alprazolam 0.25 MG tablet 0.25 mg PO QDAYP PRN (Reason: anxiety) Qty: 14 0RF oxycodone 5 mg tablet 5 mg PO Q6H PRN (Reason: pain) Qty: 20 0RF alprazolam 0.25 mg tablet 0.25 mg PO BEDTIME PRN (Reason: anxiety) Qty: 14 0RF oxycodone 5 mg tablet 5 mg PO Q6H PRN (Reason: pain (scale score 4-6)) Qty: 20 0RF oxycodone 5 mg tablet 5 mg PO Q6H PRN (Reason: pain (scale score 4-6)) Qty: 30 0RF montelukast 10 mg tablet 10 mg PO QPM Atrovent HFA 17 mcg/actuation HFA aerosol inhaler 2 puff INHALATION 4XD Dupixent Syringe 300 mg/2 mL syringe 300 mg SUBCUT Q2W escitalopram oxalate 10 mg tablet 10 mg PO DAILY Visit Report/Discharge Packet Stand Alone Forms: Patient Portal/API, Stroke Signs & Symptoms
--- NOTE | 2025-05-05 15:23 | PC.NURSE ---
PIV removed by MICHAEL Garcia. Pt tolerated well. Provided discharge education on follow up and fall prevention. Pt stated all questions answered. All belongings with pt. No belongings in safe, pharmacy, or drawer. Pt escorted by MILES Baires and MICHAEL Garcia to POV, spouse driving home.
== END 2025-05-05 15:24 | disposition home or self-care (01) | DRG 641 ==
LOC: ED 09:13 → AC 09:14
PROVIDERS: Family Medicine; Hospitalist; Admitting Provider Family Medicine; Emergency Provider Family Medicine; Family Provider Family Medicine; Referring Provider Family Medicine; Visit Provider Family Medicine
DX: E83.42 Hypomagnesemia (principal); N17.9 Acute kidney failure, unspecified; E87.20 Acidosis, unspecified; E83.51 Hypocalcemia; D50.9 Iron deficiency anemia, unspecified; K52.9 Noninfective gastroenteritis and colitis, unspecified; I10 Essential (primary) hypertension; J45.909 Unspecified asthma, uncomplicated; L30.9 Dermatitis, unspecified; R45.1 Restlessness and agitation; E78.5 Hyperlipidemia, unspecified; F32.A Depression, unspecified; F43.10 Post-traumatic stress disorder, unspecified; Z86.79 Personal history of other diseases of the circulatory system
CPT/HCPCS: 36415; 36430; 71260; 74177; 80048; 80053; 81015; 82330; 82607; 82746; 83690; 83735; 85007; 85014; 85018; 85025; 85027; 86850; 86900; 86901; 87077; 87086; 87186; 93005; 94640; 96365; 96375; 97116; 97129; 97161; 97166; 97530; 97535; 99284; P9016; J0612; J0696; J3410; J3475; J7613; Q9967

== ENCOUNTER 2025-05-14 10:48 | Emergency (ER) | payer MEDICARE, SELFPAY ==
[2025-04-30 11:54] VITALS: BMI 22.6
[2025-05-14] VITALS (16 sets, daily range): BP systolic 114–122; BP diastolic 55–85; PULSE 60–71; RESP 14–25; TEMP 36.3; O2SAT 91–98; BMI 24.2
--- NOTE | 2025-05-14 11:37 | ED.NEUROSD ---
HPI - Neuro Symptoms/Deficit General Chief Complaint: Neuro Symptoms/Deficit Stated Complaint: Alt mental state (2days ago); EMS ruled out stroke Time Seen by Provider: 05/14/25 11:17 Source: patient and family Mode of arrival: Wheelchair History of Present Illness HPI Narrative: 69-year-old female with history of a left-sided cerebral aneurysms status post coiling remotely, hypertension, PTSD, hyperlipidemia, depression, history of left trimalleolar fracture status post repair last year, asthma and eczema on Dupixent who I saw on April 30, 2025 for low calcium and low magnesium and was admitted into the hospital. Patient presents with 2-3 days of confusion according to her son. The paramedics were out and evaluated the patient to did not determine that she had a stroke at that time. Today she comes in with confusion again but is alert and oriented x3 at the moment. Patient and her son deny any unilateral weakness or stroke-like symptoms. Her NIH scale is 0. Rest of her review of systems are negative as per HPI . On Anticoagulants: No Related Data Home Medications ?Medication ?Instructions ?Recorded ?Confirmed albuterol sulfate 90 mcg/actuation 2 puff inhalation Q6H PRN wheezing 07/13/24 04/30/25 aerosol inhaler amlodipine 5 mg tablet 5 mg PO DAILY 07/13/24 04/30/25 atorvastatin 80 mg tablet 80 mg PO DAILY 07/13/24 04/30/25 spironolactone 25 mg tablet 25 mg PO DAILY 07/13/24 04/30/25 losartan 100 mg tablet 100 mg PO DAILY 07/15/24 04/30/25 dupilumab 300 mg/2 mL subcutaneous 300 mg SUBCUT Q2W 04/30/25 04/30/25 syringe (Dupixent) escitalopram oxalate 10 mg tablet 10 mg PO DAILY 04/30/25 04/30/25 ipratropium bromide 17 2 puff inhalation 4XD 04/30/25 04/30/25 mcg/actuation HFA aerosol inhaler (Atrovent HFA) montelukast 10 mg tablet 10 mg PO QPM 04/30/25 04/30/25 Previous Rx's ?Medication ?Instructions ?Recorded propranolol 10 mg tablet 10 mg PO BID #180 tabs 02/26/17 omeprazole 20 mg tablet,delayed 20 mg PO QDAY #90 tabs 03/19/17 release alprazolam 0.25 mg tablet 0.25 mg PO BEDTIME PRN anxiety #14 07/16/24 tabs alprazolam 0.25 mg tablet 0.25 mg PO QDAYP PRN anxiety #14 07/16/24 tabs aspirin 81 mg tablet,delayed 81 mg PO BID #90 tabs 07/16/24 release oxycodone 5 mg tablet 5 mg PO Q6H PRN pain #20 tabs 07/16/24 oxycodone 5 mg tablet 5 mg PO Q6H PRN pain (scale score 07/16/24 4-6) #20 tabs polyethylene glycol 3350 17 gram 17 g PO DAILY PRN constipation 07/16/24 oral powder packet #100 ea oxycodone 5 mg tablet 5 mg PO Q6H PRN pain (scale score 07/18/24 4-6) #30 tabs Allergies Allergy/AdvReac Type Severity Reaction Status Date / Time meperidine (MEPERIDINE) Allergy Mild RASH Verified 05/14/25 11:04 lisinopril (LISINOPRIL) AdvReac Mild ough Verified 05/14/25 11:04 Review of Systems Review of Systems ROS Unobtainable: All systems reviewed & are unremarkable except as noted in HPI and below Hematologic/Lymphatic On Anticoagulants: No Patient History Medical History Cerebral aneurysm Unspecified essential hypertension (06/25/02) Malignant neoplasm of breast (female), unspecified site (06/25/02) Surgical History H/O bilateral oophorectomy History of lumpectomy of right breast S/P coil embolization of cerebral aneurysm Family History Brother Cancer Mother Cerebral aneurysm Social History household members: spouse Smoking Status: Unknown if ever smoked alcohol intake: current Smoking Status: Unknown if ever smoked alcohol intake frequency: 0-2 drinks per day Alcohol type: wine Exam Narrative Exam Narrative: General: Healthy appearing, in no acute distress. Able to give a complete and coherent history. Well-nourished well-developed HEENT: Moist mucous membranes, normal sclera with reactive pupils, pale conjunctiva Neck: No JVD, supple Respiratory: Lungs are clear to auscultation, no wheezing no rales no rhonchi. Full and symmetrical air movement Cardiac: Regular rate and rhythm no murmurs no bruits Abdomen: Soft, nontender, no rebound or guarding, no flank pain Skin: Warm and dry, no rashes Neurologic: Grossly neurologically intact with no obvious asymmetries or abnormalities Extremities: No trauma, well perfused Psych: Cooperative, appropriate insight and affect Initial Vital Signs Initial Vital Signs: Vital Signs Temperature 97.4 F L 05/14/25 10:49 Pulse Rate 60 05/14/25 10:49 Respiratory Rate 14 05/14/25 10:49 Blood Pressure 118/85 05/14/25 10:49 Pulse Oximetry 97 05/14/25 10:49 Oxygen Delivery Method Room Air 05/14/25 10:49 Course Course Course Narrative: We will workup the patient for altered mental status including labs and imaging. Patient is outside of the window for any thrombolytics. Orders Ordered: ED Orders 05/14/25 11:19 Urine Drug Screen, Rapid Stat Urine Microscopic Stat 05/14/25 11:39 UA dip [Urinalysis Screen (Dip Only)] Stat 05/14/25 12:00 CT angio head and neck Stat CT head/brain wo con Stat 05/14/25 12:30 CBC Auto Diff [Complete Blood Count AUTO DIFF] Stat CMP [Comprehensive Metabolic Panel] Stat Ethanol (ETOH) Stat Magnesium Stat PTT Partial Thromboplastin [place] Stat Prothrombin Time INR Stat Troponin & CK Cardiac Panel Stat Magnesium Sulfate (Magnesium Sulfate) 2 gm in 50 mls @ 25 mls/hr IV NOW ONE Stop: 05/14/25 15:24 Last Admin: 05/14/25 13:32 Dose: 25 mls/hr Documented By: [facility] Co-signed By: CTS Lactated Ringer's (Lactated Ringers) 500 mls @ 1,000 mls/hr IV BOLUS ONE Stop: 05/14/25 15:36 Reevaluation(s) Reevaluation #1: Upon re-evaluation, patient's mental status is much improved. Patient receiving 2 g of magnesium currently. Consultations Consultation #1: Stroke neurologist Dr. Rivera at [facility] was consulted who agreed that most likely there is no stroke occurring right now. She did suggest a possible MRI but due to the patient's coiling, the patient can not get an MRI done here. Consultation #2: After discussion with hospitalist Dr. Ulloa, he agreed that the patient most likely can go home for observation with strict return protocol since the CT and stroke workup so far is negative. Vital Signs Vital signs: Vital Signs - 8 hr 05/14/25 10:49 05/14/25 11:29 05/14/25 11:30 Temperature 97.4 F L Pulse Rate 60 60 Respiratory Rate 14 25 H Blood Pressure 118/85 118/62 Pulse Oximetry 97 96 Oxygen Delivery Method Room Air 05/14/25 11:30 05/14/25 12:00 05/14/25 12:30 Temperature Pulse Rate 61 62 61 Respiratory Rate 21 25 H Blood Pressure Pulse Oximetry 91 95 94 Oxygen Delivery Method 05/14/25 12:35 05/14/25 12:35 05/14/25 13:06 Temperature Pulse Rate 64 67 Respiratory Rate 25 H Blood Pressure 122/57 L Pulse Oximetry 92 Oxygen Delivery Method MDM - Neuro Symptoms/Deficit Differential Diagnosis Differential diagnosis: Likely delirium, cerebrovascular accident, transient cerebral ischemia and other (hypomagnesmia ) Lab Data 05/14/25 12:30 05/14/25 12:30 Labs: Lab Results 05/14/25 05/14/25 05/14/25 Range/Units 11:01 11:19 12:30 WBC 9.9 (4.5-11.0) X10^3/uL RBC 2.42 L (4.0-5.2) X10^6/uL Hgb 8.6 L (12.0-16.0) g/dL Hct 26.6 L (36-46) % MCV 109.9 H D (80-100) fL MCH 35.5 H (26-34) PG MCHC 32.3 (30-36) % RDW 17.7 H (11.6-14.8) % Plt Count 198 (150-400) X10^3/uL Neut % (Auto) 69.5 (50-75) % Lymph % (Auto) 10.2 L (25-40) % Jenkins % (Auto) 7.8 (3-14) % Eos % (Auto) 12.0 H (2-4) % Baso % (Auto) 0.5 (0-2) % Neut # (Auto) 6800 (0071-9899) /uL Lymph # (Auto) 1000 L (6054-4388) /uL Jenkins # (Auto) 800 (0-900) /uL Eos # (Auto) 1200 H (0-450) /uL Baso # (Auto) 100 (0-100) /uL PT 11.4 (9.4-12.5) SECONDS INR 1.0 (0.9-1.3) APTT 31 (25.1-36.5) SECONDS Sodium 138 (137-145) mmol/L Potassium 5.1 (3.4-5.1) mmol/L Chloride 113 H (98-107) mmol/L Carbon Dioxide 20 L (22-32) mmol/L BUN 13 (7-17) mg/dL Creatinine 0.82 (0.52-1.04) mg/dL Estimated GFR > 60 (>60) mL/min BUN/Creatinine Ratio 15.9 (6-22) Glucose 78 (70-99) mg/dL POC Whole Bld Glucose 75 (70-99) mg/dL Calcium 8.3 L (8.4-10.2) mg/dL Magnesium 1.0 L (1.6-2.3) mg/dL Total Bilirubin 0.5 (0.2-1.3) mg/dL AST 44 H (14-36) IU/L ALT 18 (<35) IU/L Alkaline Phosphatase 129 H (38-126) U/L Total Creatine Kinase 32 (30-135) U/L Troponin I < 0.012 (0.01-0.034) ng/mL Total Protein 6.0 L (6.3-8.2) g/dL Albumin 3.0 L (3.5-5.0) g/dL Globulin 3.0 (1.7-4.1) g/dL Albumin/Globulin Ratio 1.0 (1.0-2.8) Urine RBC 0-1/hpf (0-5/HPF) Urine WBC 1-5/hpf (0-5/HPF) Ur Squamous Epith Cells 5-10 /hpf H (0-5/HPF) Uric Acid Crystals Moderate H (None) Urine Bacteria Occasional (0-1) (None) Ur Culture Indicated? Cult not indicated Vol Urine Centrifuged 10ml (spun) U Opiates 300ng/mL cut Negative (Negative) Ur Oxycodone Screen Negative (Negative) Urine Methadone Screen Negative (Negative) Ur Barbiturates Screen Negative (Negative) U Tricyclic Antidepress Negative (Negative) Ur Phencyclidine Scrn Negative (Negative) Ur Amphetamines Screen Negative (Negative) U Methamphetamines Scrn Negative (Negative) Ur MDMA Scrn (Ecstasy) Negative (Negative) U Benzodiazepines Scrn Positive H (Negative) Urine Cocaine Screen Negative (Negative) U Marijuana (THC) Screen Positive H (Negative) Urine pH Normal (Normal) Urine Specific [place] Normal (Normal) Ethyl Alcohol < 10 (<10) mg/dL Ur Creatinine Normal (Normal) Point of Care Testing Glucose POC 75 Urine Dip Bedside Urine Glucose Negative Bedside Urine Bilirubin - Negative Bedside Urine Ketone - Negative Urine Specific [place] 1.015 Bedside Urine Occult Blood +/- Bedside Urine pH 6.0 Bedside Urine Protein - Negative Bedside Urine Urobilinogen - Negative Bedside Urine Nitrite - Negative Bedside Urine Leukocytes - Negative Esterase Imaging Data CTA - brain/neck: Radiologist's Impression: . No hemodynamically significant stenosis or aneurysm is seen in the intracranial circulation. Previous surgical choroidal in left side of anterior communicating artery. 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 2. Extensive atherosclerotic calcifications involving origins and proximal bilateral internal carotid arteries with up to 90% narrowing on the left side and 80% narrowing on the right side not significantly changed from prior study. No occlusion. 3. No other hemodynamically significant stenosis or aneurysm is seen in bilateral neck arteries. Any quantitative measurements of stenosis were performed using NASCET criteria. head ct showed following: No acute intracranial pathology. Moderate periventricular and deep white matter small vessel chronic ischemic changes and age related volume loss. Remote aneurysm coiling unchanged from prior study. ECG Data Interpretation: EKG showed normal sinus rhythm with low QRS voltage, normal axis, normal MN interval, septal infarct, age undetermined. Rate of 62 beats per minute Previous EKG showed an accelerated junctional rhythm with prolonged QT syndrome with STT wave changes. MDM Narrative Medical decision making narrative: Patient is back at her baseline after magnesium infusion and a bolus infusion of LR. Less likely stroke at this time. Advised if ever have any stroke-like symptoms to come right back to the ER. Discharge Plan Departure Patient Disposition: Home Clinical Impression: Hypomagnesemia Altered mental status Qualifiers: Altered mental status type: unspecified Qualified Code(s): R41.82 - Altered mental status, unspecified Instructions: DI for Altered Mental Status, DI for Hypomagnesemia Activity Restrictions/Additional Instructions: Take up to 400 mg of magnesium glycinate p.o. daily. Continue to monitor for any stroke symptoms such as one-sided weakness, slurred speech, any other stroke symptoms that come immediately to the ER if the symptoms appear. Prescriptions: No Action propranolol 10 MG tablet 10 mg PO BID Qty: 180 1RF omeprazole 20 MG tablet,delayed release (DR/EC) 20 mg PO QDAY Qty: 90 1RF atorvastatin 80 mg tablet 80 mg PO DAILY amlodipine 5 mg tablet 5 mg PO DAILY albuterol sulfate 90 mcg/actuation HFA aerosol inhaler 2 puff INHALATION Q6H PRN (Reason: wheezing) spironolactone 25 MG tablet 25 mg PO DAILY losartan 100 mg tablet 100 mg PO DAILY aspirin 81 mg Tablet,Delayed Release (Dr/Ec) 81 mg PO BID Qty: 90 0RF polyethylene glycol 3350 17 gram Powder In Packet 17 g PO DAILY PRN (Reason: constipation) Qty: 100 0RF alprazolam 0.25 MG tablet 0.25 mg PO QDAYP PRN (Reason: anxiety) Qty: 14 0RF oxycodone 5 mg tablet 5 mg PO Q6H PRN (Reason: pain) Qty: 20 0RF alprazolam 0.25 mg tablet 0.25 mg PO BEDTIME PRN (Reason: anxiety) Qty: 14 0RF oxycodone 5 mg tablet 5 mg PO Q6H PRN (Reason: pain (scale score 4-6)) Qty: 20 0RF oxycodone 5 mg tablet 5 mg PO Q6H PRN (Reason: pain (scale score 4-6)) Qty: 30 0RF montelukast 10 mg tablet 10 mg PO QPM Atrovent HFA 17 mcg/actuation HFA aerosol inhaler 2 puff INHALATION 4XD Dupixent Syringe 300 mg/2 mL syringe 300 mg SUBCUT Q2W escitalopram oxalate 10 mg tablet 10 mg PO DAILY Stand Alone Forms: Patient Portal/API
[2025-05-14 11:51] LABS: UR Morphine/Opiate cutoff 300 Negative (Negative); Ur Specific Gravity Normal (Normal); Urine MDMA Negative (Negative); Urine Methamphetamines Negative (Negative); Urine Tetrahydrocannabinol Positive (Negative); Urine Tricyclic Antidepressant Negative (Negative)
--- NOTE | 2025-05-14 12:00 | DI.CT.S_ITS ---
PROCEDURE: CT ANGIO HEAD AND NECK INDICATIONS: ams TECHNIQUE: After the administration of intravenous contrast, 1 mm thick sections acquired from the aortic arch through the [place]. 3-dimensional hqwvure-xvdwcshur-piobwnppkx (MIP) and/or volume rendering reformats were acquired of the central intracranial vasculature and neck separately. For radiation dose reduction, the following was used: automated exposure control, adjustment of mA and/or kV according to patient size. COMPARISON: [facility], CT, CT ANGIO HEAD AND NECK, 11/21/2021, 14:33. FINDINGS: Image quality: Diagnostic. Cerebral CT Angiogram: Internal carotid arteries: No acute findings. Intracranial ICA are patent with no significant stenosis. No occlusion. No aneurysm. Anterior cerebral arteries: Hypoplastic right A1 segment. No significant stenosis. No occlusion. No aneurysm. Surgical choroidal in the region of anterior communicating artery is seen Middle cerebral arteries: Unremarkable. No significant stenosis. No occlusion. No aneurysm. Posterior cerebral arteries: Unremarkable. No significant stenosis. No occlusion. No aneurysm. Basilar artery: Unremarkable. No significant stenosis. No occlusion. No aneurysm. Vertebral arteries: Unremarkable as visualized. Dural venous sinuses: Unremarkable given phase of enhancement. Other: Arterial phase appearance of the brain parenchyma is unremarkable. Neck CT Angiogram: Internal carotid arteries: Again noted are significant atherosclerotic calcifications involving origins of bilateral internal carotid arteries with up to 90% stenosis involving left internal carotid artery origin and up to 80% stenosis involving right internal carotid artery origin. More distal bilateral internal carotid arteries show no hemodynamically significant stenosis. No dissection or occlusion. Common carotid arteries: Unremarkable. No significant stenosis. No dissection or occlusion. External carotid arteries: Unremarkable. No occlusion. Vertebral arteries: Unremarkable. No significant stenosis. No dissection or occlusion. Aortic Arch and Mediastinum: Partially visualized aortic arch unremarkable without evidence of aneurysm. Origins of the great vessels unremarkable. Other: Arterial phase soft tissues of the neck and chest are unremarkable. Small to moderate bilateral pleural effusion is seen. IMPRESSION: 1. No hemodynamically significant stenosis or aneurysm is seen in the intracranial circulation. Previous surgical choroidal in left side of anterior communicating artery. 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 2. Extensive atherosclerotic calcifications involving origins and proximal bilateral internal carotid arteries with up to 90% narrowing on the left side and 80% narrowing on the right side not significantly changed from prior study. No occlusion. 3. No other hemodynamically significant stenosis or aneurysm is seen in bilateral neck arteries. Any quantitative measurements of stenosis were performed using NASCET criteria. Dictated by: Elpidio Jeff M.D. on 05/14/2025 at 13:18 Approved by: Elpidio Jeff M.D. on 05/14/2025 at 13:23
--- NOTE | 2025-05-14 12:00 | DI.CT.S_ITS ---
PROCEDURE: CT HEAD/BRAIN WO CON INDICATIONS: ams TECHNIQUE: Noncontrast 4.5 mm thick angled axial sections acquired from the foramen magnum to the vertex, with coronal and sagittal reformats. For radiation dose reduction, the following was used: automated exposure control, adjustment of mA and/or kV according to patient size. COMPARISON: 09/12/2023 FINDINGS: Image quality: Diagnostic. CSF spaces: Basal cisterns are patent. No extra-axial fluid collections. Remote cerebral aneurysm coiling unchanged from prior study. The ventricles are symmetric in size and shape. Brain: No intracranial bleeds or mass effect. There is cerebral volume loss, with resultant ventricular and sulcal prominence. There are periventricular and deep white matter chronic small vessel ischemic changes. There is intracranial internal carotid artery atherosclerosis. Skull and face: Calvarium and visualized facial bones appear intact, without suspicious lesions. Sinuses: Visualized sinuses and mastoids are clear. IMPRESSION: No acute intracranial pathology. Moderate periventricular and deep white matter small vessel chronic ischemic changes and age related volume loss. Remote aneurysm coiling unchanged from prior study. Dictated by: Elpidio Jeff M.D. on 05/14/2025 at 13:16 Approved by: Elpidio Jeff M.D. on 05/14/2025 at 13:17
[2025-05-14 12:12] LABS: Culture Indicated Urine Cult Not Indicated
[2025-05-14 12:41] LABS: Add Manual Diff / Slide Review NO; Hematocrit 26.6 % (36-46); Hemoglobin 8.6 g/dL (12.0-16.0); Lymphocytes Absolute Auto 1000 /uL (1100-4500); Mean Corpuscular HGB Conc 32.3 % (30-36); Mean Corpuscular Hemoglobin 35.5 PG (26-34); Mean Corpuscular Volume 109.9 fL (80-100); Platelet Count 198 X10^3/uL (150-400)
[2025-05-14 12:47] LABS: INR 1.0 (0.9-1.3); Prothrombin Time 11.4 SECONDS (9.4-12.5)
[2025-05-14 12:50] LABS: PTT Partial Thromboplastin Tim 31 SECONDS (25.1-36.5)
[2025-05-14 12:54] LABS: Creatine Kinase 32 U/L (30-135); Ethanol (ETOH) < 10 mg/dL (<10)
[2025-05-14 12:55] LABS: Alanine Aminotransferase 18 IU/L (<35); Albumin 3.0 g/dL (3.5-5.0); Albumin Globulin Ratio 1.0 (1.0-2.8); Alkaline Phosphatase 129 U/L (38-126); Blood Urea Nitrogen 13 mg/dL (7-17); Calcium 8.3 mg/dL (8.4-10.2); Carbon Dioxide 20 mmol/L (22-32); Chloride 113 mmol/L (98-107); Estimated Glomerular Filt Rate > 60 mL/min (>60); Globulin 3.0 g/dL (1.7-4.1); Glucose 78 mg/dL (70-99); HEMOLYSIS < 15 (0-50); Magnesium 1.0 mg/dL (1.6-2.3); Potassium 5.1 mmol/L (3.4-5.1); Sodium 138 mmol/L (137-145); Total Protein 6.0 g/dL (6.3-8.2)
[2025-05-14 13:07] LABS: Troponin I < 0.012 ng/mL (0.01-0.034)
[2025-05-14] MEDS: MAGNESIUM SULFATE 2 GM/50 ML PIGGYBACK IV (13:32)
[2025-05-14] MEDS: LACTATED RINGERS 500 ML 1000 ML IV (15:23)
== END 2025-05-14 16:28 | disposition home or self-care (01) ==
PROVIDERS: Emergency Provider Family Medicine; Family Provider Family Medicine
DX: E83.42 Hypomagnesemia (principal); R41.82 Altered mental status, unspecified
CPT/HCPCS: 36415; 70450; 70496; 70498; 80053; 80305; 80320; 81003; 81015; 82550; 82962; 83735; 84484; 85025; 85610; 85730; 96361; 96365; 99284; J3475; Q9967

== ENCOUNTER 2025-09-27 12:20 | Emergency (ER) | payer MEDICARE, SELFPAY ==
[2025-04-30 11:54] VITALS: BMI 22.6
[2025-09-27 13:13] VITALS: BP 124/57; PULSE 69; RESP 16; TEMP 36.3; O2SAT 100; BMI 21.3
--- NOTE | 2025-09-27 13:22 | ED_ITS ---
HPI - Recheck/Abnormal Lab/Rx <Ravin Gustafson MD - Last Filed: 09/27/25 14:54> General Chief Complaint: Recheck/Abnormal Lab/Rx Stated Complaint: DR Fierro concerned of intestine condition. Time Seen by Provider: 09/27/25 13:20 Source: patient Mode of arrival: Wheelchair History of Present Illness HPI narrative: Patient is sent here with for complaints of abnormal/low magnesium and calcium. She is asymptomatic. Patient states she would not have come here however they received a call outpatient laboratory studies were abnormal. Patient has no symptoms. She had blood work done by primary care with [facility]. She has had IV magnesium replacements in the past. She is on magnesium oral replacement at home. She has chronic lower abdominal discomfort vomiting and diarrhea which is not new. She states she was comfortable at home until she received the phone call from primary care to come here Related Data Home Medications ?Medication ?Instructions ?Recorded ?Confirmed albuterol sulfate 90 mcg/actuation 2 puff inhalation Q 6H PRN wheezing 07/13/24 04/30/25 aerosol inhaler amlodipine 5 mg tablet 5 mg PO DAILY 07/13/2404/30 atorvastatin 80 mg tablet 80 mg PO DAILY 07/13/2404/12 spironolactone 25 mg tablet 25 mg PO DAILY 07/13/24 losartan 100 mg tablet 100 mg PO DAILY 07/15/24 dupilumab 300 mg/2 mL subcutaneous 300 mg SUBCUT Q2W 0 04/30/25 04/30/25 syringe (Dupixent) escitalopram oxalate 10 mg tablet 10 mg PO DAILY 04/3004/30/25 ipratropium bromide 17 2 puff inhalation 4XD 04/30/25 mcg/actuation HFA aerosol inhaler (Atrovent HFA) montelukast 10 mg tablet 10 mg PO QPM 04/30/25 Previous Rx's ?Medication ?Instructions ?Recorded propranolol 10 mg tablet 10 mg PO BID #180 tabs 02/26 omeprazole 20 mg tablet,delayed 20 mg PO QDAY #90 tabs 03/19/17 release alprazolam 0.25 mg tablet 0.25 mg PO BEDTIME PRN anxie ty #14 10/04/24 tabs alprazolam 0.25 mg tablet 0.25 mg PO QDAYP PRN anxiety #14 07/16/24 tabs aspirin 81 mg tablet,delayed 81 mg PO BID #90 tabs 02/03 release oxycodone 5 mg tablet 5 mg PO Q6H PRN pain #20 tab s 07/16/24 oxycodone 5 mg tablet 5 mg PO Q6H PRN pain (scale score 07/16/24 4-6) #20 tabs polyethylene glycol 3350 17 gram 17 g PO DAILY PRN con stipation 07/16/24 oral powder packet #100 ea oxycodone 5 mg tablet 5 mg PO Q6H PRN pain (scale score 07/18/24 4-6) #30 tabs Allergies Allergy/AdvReac Type Severity Reaction Status Date / Time meperidine (MEPERIDINE) Allergy Mild RASH Verified 05/14/25 11:04 lisinopril (LISINOPRIL) AdvReac Mild ough Verified 05/14/25 11:04 Review of Systems <Ravin Gustafson MD - Last Filed: 09/27/25 14:54> Review of Systems Narrative: GENERAL: Negative chills, fatigue, malaise, fever, sweats. HEENT: Negative sinus pain, ear pain, sore throat RESPIRATORY: Negative dyspnea, cough CARDIOVASCULAR: Negative chest pain, palpitations GASTROINTESTINAL: Negative vomiting, nausea, abdominal pain : Negative dysuria, frequency, hematuria MUSCULOSKELETAL: Negative muscle or bony pain SKIN: Negative rash, skin lesions NEUROLOGIC: Negative weakness, numbness ROS Unobtainable: All systems reviewed & are unremarkable except as noted in HPI and below Patient History <Ravin Gustafson MD - Last Filed: 09/27/25 14:54> Medical History Cerebral aneurysm Unspecified essential hypertension (06/25/02) Malignant neoplasm of breast (female), unspecified site (06/25/02) Surgical History H/O bilateral oophorectomy History of lumpectomy of right breast S/P coil embolization of cerebral aneurysm Family History Brother Cancer Mother Cerebral aneurysm Social History household members: spouse alcohol intake: current alcohol intake frequency: 0-2 drinks per day Alcohol type: wine Exam <Ravin Gustafson MD - Last Filed: 09/27/25 14:54> Narrative Exam Narrative: GENERAL: in no distress, not toxic not dyspneic HEAD: Normocephalic. EYES: Pupils equal round ENT: Mucous membranes moist. NECK: Trachea midline. CARDIOVASCULAR: Regular rate and rhythm RESPIRATORY: Clear to auscultation. Breath sounds equal bilaterally. No wheezes, rales, or rhonchi. GASTROINTESTINAL: Abdomen soft, nontender BACK: No flank tenderness. EXTREMITIES: No gross deformities. NEURO: AOx4. Clear speech SKIN: Warm and dry PSYCH: Not anxious, is cooperative Initial Vital Signs Initial Vital Signs: Vital Signs Temperature 97.4 F L 09/27/25 13:13 Pulse Rate 69 09/27/25 13:13 Respiratory Rate 16 09/27/25 13:13 Blood Pressure 124/57 L 09/27/25 13:13 Pulse Oximetry 100 09/27/25 13:13 Oxygen Delivery Method Room Air 09/27/25 13:13 <Brent Drummond MD - Last Filed: 09/27/25 18:30> Initial Vital Signs Initial Vital Signs: Vital Signs Temperature 97.4 F L 09/27/25 13:13 Pulse Rate 69 09/27/25 13:13 Respiratory Rate 16 09/27/25 13:13 Blood Pressure 124/57 L 09/27/25 13:13 Pulse Oximetry 100 09/27/25 13:13 Oxygen Delivery Method Room Air 09/27/25 13:13 Course <Ravin Gustafson MD - Last Filed: 09/27/25 14:54> Orders Ordered: ED Orders 09/27/25 13:27 CBC Auto Diff [Complete Blood Count AUTO DIFF] Stat CMP [Comprehensive Metabolic Panel] Stat Magnesium Stat 09/27/25 15:58 CMP [Comprehensive Metabolic Panel] Stat Magnesium Stat Magnesium Sulfate (Magnesium Sulfate) 2 gm in 50 mls @ 25 mls/hr IV NOW ONE Stop: 09/27/25 18:47 Last Infusion: 09/27/25 17:45 Dose: Infused Documented By: [facility] Co-signed By: ESTEVAN Admin: 09/27/25 17:11 Dose: 25 mls/hr Documented By: Co-signed By: JULIAN Discontinued Medications Alprazolam (Alprazolam 0.25 Mg Tablet) 0.25 mg PO NOW ONE Stop: 09/27/25 15:09 Last Admin: 09/27/25 15:13 Dose: 0.25 mg Documented By: ESTEVAN(2) Magnesium Sulfate (Magnesium Sulfate) 2 gm in 50 mls @ 150 mls/hr IV NOW ONE Stop: 09/27/25 14:22 Last Infusion: 09/27/25 15:04 Dose: Infused Documented By: RLS(2) Co-signed By: JULIAN Admin: 09/27/25 14:42 Dose: 150 mls/hr Documented By: ESTEVAN(2) Co-signed By: JULIAN Calcium Gluconate 9.3 meq/ (Sodium Chloride) 70 mls @ 140 mls/hr IV NOW ONE Stop: 09/27/25 14:32 Last Infusion: 09/27/25 15:53 Dose: Infused Documented By: Admin: 09/27/25 15:03 Dose: 140 mls/hr Documented By: RLS(2) Sodium Chloride (Normal Saline 0.9%) 1,000 mls @ 1,000 mls/hr IV BOLUS ONE Stop: 09/27/25 15:04 Last Infusion: 09/27/25 15:54 Dose: Infused Documented By: Admin: 09/27/25 14:45 Dose: 1,000 mls/hr Documented By: RLS(2) Calcium Gluconate 9.3 meq/ (Sodium Chloride) 70 mls @ 140 mls/hr IV NOW ONE Stop: 09/27/25 17:17 Last Infusion: 09/27/25 17:56 Dose: Infused Documented By: Admin: 09/27/25 17:02 Dose: 140 mls/hr Documented By: Sodium Chloride (Normal Saline 0.9%) 1,000 mls @ 1,000 mls/hr IV BOLUS ONE Stop: 09/27/25 17:47 Last Infusion: 09/27/25 18:20 Dose: Infused Documented By: Admin: 09/27/25 17:10 Dose: 1,000 mls/hr Documented By: AB Vital Signs Vital signs: Vital Signs - 8 hr 09/27/25 13:13 Temperature 97.4 F L Pulse Rate 69 Respiratory Rate 16 Blood Pressure 124/57 L Pulse Oximetry 100 Oxygen Delivery Method Room Air <Brent Drummond MD - Last Filed: 09/27/25 18:30> Orders Ordered: ED Orders 09/27/25 13:27 CBC Auto Diff [Complete Blood Count AUTO DIFF] Stat CMP [Comprehensive Metabolic Panel] Stat Magnesium Stat 09/27/25 15:58 CMP [Comprehensive Metabolic Panel] Stat Magnesium Stat Magnesium Sulfate (Magnesium Sulfate) 2 gm in 50 mls @ 25 mls/hr IV NOW ONE Stop: 09/27/25 18:47 Last Infusion: 09/27/25 17:45 Dose: Infused Documented By: CARMEN Co-signed By: ESTEVAN Admin: 09/27/25 17:11 Dose: 25 mls/hr Documented By: Co-signed By: JULIAN Discontinued Medications Alprazolam (Alprazolam 0.25 Mg Tablet) 0.25 mg PO NOW ONE Stop: 09/27/25 15:09 Last Admin: 09/27/25 15:13 Dose: 0.25 mg Documented By: ESTEVAN(2) Magnesium Sulfate (Magnesium Sulfate) 2 gm in 50 mls @ 150 mls/hr IV NOW ONE Stop: 09/27/25 14:22 Last Infusion: 09/27/25 15:04 Dose: Infused Documented By: ESTEVAN(2) Co-signed By: JULIAN Admin: 09/27/25 14:42 Dose: 150 mls/hr Documented By: ESTEVAN(2) Co-signed By: JULIAN Calcium Gluconate 9.3 meq/ (Sodium Chloride) 70 mls @ 140 mls/hr IV NOW ONE Stop: 09/27/25 14:32 Last Infusion: 09/27/25 15:53 Dose: Infused Documented By: Admin: 09/27/25 15:03 Dose: 140 mls/hr Documented By: RLS(2) Sodium Chloride (Normal Saline 0.9%) 1,000 mls @ 1,000 mls/hr IV BOLUS ONE Stop: 09/27/25 15:04 Last Infusion: 09/27/25 15:54 Dose: Infused Documented By: Admin: 09/27/25 14:45 Dose: 1,000 mls/hr Documented By: RLS(2) Calcium Gluconate 9.3 meq/ (Sodium Chloride) 70 mls @ 140 mls/hr IV NOW ONE Stop: 09/27/25 17:17 Last Infusion: 09/27/25 17:56 Dose: Infused Documented By: Admin: 09/27/25 17:02 Dose: 140 mls/hr Documented By: AB Sodium Chloride (Normal Saline 0.9%) 1,000 mls @ 1,000 mls/hr IV BOLUS ONE Stop: 09/27/25 17:47 Last Infusion: 09/27/25 18:20 Dose: Infused Documented By: Admin: 09/27/25 17:10 Dose: 1,000 mls/hr Documented By: AB Vital Signs Vital signs: Vital Signs - 8 hr 09/27/25 13:13 Temperature 97.4 F L Pulse Rate 69 Respiratory Rate 16 Blood Pressure 124/57 L Pulse Oximetry 100 Oxygen Delivery Method Room Air MDM - Recheck/Abnormal Lab/Rx <Ravin Gustafson MD - Last Filed: 09/27/25 14:54> Lab Data 09/27/25 13:27 09/27/25 15:58 Labs: Lab Results 09/27/25 09/27/25 Range/Units 13:27 15:58 WBC 5.4 (4.5-11.0) X10^3/uL RBC 2.45 L (4.0-5.2) X10^6/uL Hgb 8.9 L (12.0-16.0) g/dL Hct 26.6 L (36-46) % MCV 108.8 H (80-100) fL MCH 36.5 H (26-34) PG MCHC 33.6 (30-36) % RDW 14.6 (11.6-14.8) % Plt Count 137 L (150-400) X10^3/uL Neut % (Auto) 71.4 (50-75) % Lymph % (Auto) 17.3 L (25-40) % [place] % (Auto) 7.9 (3-14) % Eos % (Auto) 2.1 (2-4) % Baso % (Auto) 1.3 (0-2) % Neut # (Auto) 3900 (9477-5701) /uL Lymph # (Auto) 900 L (7268-4293) /uL [place] # (Auto) 400 (0-900) /uL Eos # (Auto) 100 (0-450) /uL Baso # (Auto) 100 (0-100) /uL Sodium 135 L 135 L (137-145) mmol/L Potassium 4.3 4.2 (3.4-5.1) mmol/L Chloride 104 107 (98-107) mmol/L Carbon Dioxide 18 L 17 L (22-32) mmol/L BUN 21 H 20 H (7-17) mg/dL Creatinine 1.85 H 1.68 H (0.52-1.04) mg/dL Estimated GFR 29 L 32 L (>60) mL/min BUN/Creatinine Ratio 11.4 11.9 (6-22) Glucose 92 98 (70-99) mg/dL Calcium 6.8 L 7.3 L (8.4-10.2) mg/dL Magnesium 0.8 L* 1.3 L (1.6-2.3) mg/dL Total Bilirubin 0.6 0.6 (0.2-1.3) mg/dL AST 70 H 68 H (14-36) IU/L ALT 21 20 (<35) IU/L Alkaline Phosphatase 183 H 177 H (38-126) U/L Total Protein 6.5 6.1 L (6.3-8.2) g/dL Albumin 3.3 L 3.0 L (3.5-5.0) g/dL Globulin 3.2 3.1 (1.7-4.1) g/dL Albumin/Globulin Ratio 1.0 1.0 (1.0-2.8) MDM Narrative Medical decision making narrative: Patient is sent here with for complaints of abnormal/low magnesium and calcium. She is asymptomatic. Patient states she would not have come here however they received a call outpatient laboratory studies were abnormal. Patient has no symptoms. She had blood work done by primary care with [facility]. She has had IV magnesium replacements in the past. She is on magnesium oral replacement at home. She has chronic lower abdominal discomfort vomiting and diarrhea which is not new. She states she was comfortable at home until she received the phone call from primary care to come here MDM After history and exam, CBC CMP magnesium Differential considered: Includes but not limited to hypomagnesemia hypocalcemia Medical records reviewed: Discharge summary from this hospital May 05, 2025 for low calcium low magnesium Lab Test results independently reviewed as above. Pertinent findings: WBC 5.4 hemoglobin 8.9 sodium 135 potassium 4.3 BUN 21 creatinine 1.85 GFR 29 calcium 6.8 magnesium 0.8 Imaging studies independently reviewed: Consultations: Re-evaluations: Discussion: 3:[address] Gustafson: Sign-out to Dr. Ramirez, need repeat CMP and magnesium levels after infusion for replacement. May be able to be discharged home if improving. Patient is asymptomatic. Diagnosis: Hypomagnesemia hypocalcemia <Brent Drummond MD - Last Filed: 09/27/25 18:30> Lab Data Labs: Lab Results 09/27/25 09/27/25 Range/Units 13:27 15:58 WBC 5.4 (4.5-11.0) X10^3/uL RBC 2.45 L (4.0-5.2) X10^6/uL Hgb 8.9 L (12.0-16.0) g/dL Hct 26.6 L (36-46) % MCV 108.8 H (80-100) fL MCH 36.5 H (26-34) PG MCHC 33.6 (30-36) % RDW 14.6 (11.6-14.8) % Plt Count 137 L (150-400) X10^3/uL Neut % (Auto) 71.4 (50-75) % Lymph % (Auto) 17.3 L (25-40) % [place] % (Auto) 7.9 (3-14) % Eos % (Auto) 2.1 (2-4) % Baso % (Auto) 1.3 (0-2) % Neut # (Auto) 3900 (9046-9633) /uL Lymph # (Auto) 900 L (4711-8181) /uL [place] # (Auto) 400 (0-900) /uL Eos # (Auto) 100 (0-450) /uL Baso # (Auto) 100 (0-100) /uL Sodium 135 L 135 L (137-145) mmol/L Potassium 4.3 4.2 (3.4-5.1) mmol/L Chloride 104 107 (98-107) mmol/L Carbon Dioxide 18 L 17 L (22-32) mmol/L BUN 21 H 20 H (7-17) mg/dL Creatinine 1.85 H 1.68 H (0.52-1.04) mg/dL Estimated GFR 29 L 32 L (>60) mL/min BUN/Creatinine Ratio 11.4 11.9 (6-22) Glucose 92 98 (70-99) mg/dL Calcium 6.8 L 7.3 L (8.4-10.2) mg/dL Magnesium 0.8 L* 1.3 L (1.6-2.3) mg/dL Total Bilirubin 0.6 0.6 (0.2-1.3) mg/dL AST 70 H 68 H (14-36) IU/L ALT 21 20 (<35) IU/L Alkaline Phosphatase 183 H 177 H (38-126) U/L Total Protein 6.5 6.1 L (6.3-8.2) g/dL Albumin 3.3 L 3.0 L (3.5-5.0) g/dL Globulin 3.2 3.1 (1.7-4.1) g/dL Albumin/Globulin Ratio 1.0 1.0 (1.0-2.8) MDM Narrative Medical decision making narrative: Patient is sent here with for complaints of abnormal/low magnesium and calcium. She is asymptomatic. Patient states she would not have come here however they received a call outpatient laboratory studies were abnormal. Patient has no symptoms. She had blood work done by primary care with [facility]. She has had IV magnesium replacements in the past. She is on magnesium oral replacement at home. She has chronic lower abdominal discomfort vomiting and diarrhea which is not new. She states she was comfortable at home until she received the phone call from primary care to come here MDM After history and exam, CBC CMP magnesium Differential considered: Includes but not limited to hypomagnesemia hypocalcemia Medical records reviewed: Discharge summary from this hospital May 05, 2025 for low calcium low magnesium Lab Test results independently reviewed as above. Pertinent findings: WBC 5.4 hemoglobin 8.9 sodium 135 potassium 4.3 BUN 21 creatinine 1.85 GFR 29 calcium 6.8 magnesium 0.8 Imaging studies independently reviewed: Consultations: Re-evaluations: Discussion: 3:[address] Gustafson: Sign-out to Dr. Drummond, need repeat CMP and magnesium levels after infusion for replacement. May be able to be discharged home if improving. Patient is asymptomatic. Diagnosis: Hypomagnesemia hypocalcemia 15:00 Patient care transferred to mt at the change of shift by Dr. Fatima with magnesium and calcium infusions pending with follow up lab work. This is a 69-year-old female patient with a history of stroke, hypertension, anxiety, dyslipidemia, essential tremor, iron deficiency anemia and chronic problems with hypomagnesemia and hypocalcemia. She has had infusions of both of these in the past. She is asymptomatic but was sent to the ER because she had lab work revealing low magnesium and calcium. She is taking magnesium oral replenishment at home. Lab work to this point reveals anemia with a hemoglobin of 8.9 and hematocrit 26.6 with MCV 108.8. CMP reveals creatinine 1.85 with a BUN of 21 which is higher than her normal of creatinine 0.82. Her calcium is 6.8 and magnesium 0.8. Her albumin is slightly low at 3.3 which gives her a corrected calcium of over 7. She is currently receiving IV fluid replenishment for presumed volume depletion along with magnesium and calcium IV replenishment. 16:45 Patient's calcium after receiving IV calcium gluconate is 7.3, magnesium is 1.3. Creatinine is still elevated 1.65. After discussing her care with Dr. Duncan, hospitalist we will give her another L of normal saline and 2 g of magnesium sulfate and another 2 g of calcium gluconate. She can then continue her home treatment. Patient has received 2 rounds of IV calcium gluconate and magnesium sulfate along with 2 L of fluid for her dehydration. She was asymptomatic to begin with. She will be discharged home with instructions to continue her oral calcium and magnesium and follow up closely with her provider for recheck. Return to the ER if worse. Discharge Plan Departure Patient Disposition: Home Clinical Impression: Hypocalcemia, Hypomagnesemia, Volume depletion Instructions: Dehydration, DI for Hypocalcemia, DI for Hypomagnesemia Activity Restrictions/Additional Instructions: Plan: Hydration and supportive care. Continue magnesium and calcium supplements. Follow up with your doctor within a week for reassessment and to recheck lab values. Return to the ER if worse. Prescriptions: No Action propranolol 10 MG tablet 10 mg PO BID Qty: 180 1RF omeprazole 20 MG tablet,delayed release (DR/EC) 20 mg PO QDAY Qty: 90 1RF atorvastatin 80 mg tablet 80 mg PO DAILY amlodipine 5 mg tablet 5 mg PO DAILY albuterol sulfate 90 mcg/actuation HFA aerosol inhaler 2 puff INHALATION Q6H PRN (Reason: wheezing) spironolactone 25 MG tablet 25 mg PO DAILY losartan 100 mg tablet 100 mg PO DAILY aspirin 81 mg Tablet,Delayed Release (Dr/Ec) 81 mg PO BID Qty: 90 0RF polyethylene glycol 3350 17 gram Powder In Packet 17 g PO DAILY PRN (Reason: constipation) Qty: 100 0RF alprazolam 0.25 MG tablet 0.25 mg PO QDAYP PRN (Reason: anxiety) Qty: 14 0RF oxycodone 5 mg tablet 5 mg PO Q6H PRN (Reason: pain) Qty: 20 0RF alprazolam 0.25 mg tablet 0.25 mg PO BEDTIME PRN (Reason: anxiety) Qty: 14 0RF oxycodone 5 mg tablet 5 mg PO Q6H PRN (Reason: pain (scale score 4-6)) Qty: 20 0RF oxycodone 5 mg tablet 5 mg PO Q6H PRN (Reason: pain (scale score 4-6)) Qty: 30 0RF montelukast 10 mg tablet 10 mg PO QPM Atrovent HFA 17 mcg/actuation HFA aerosol inhaler 2 puff INHALATION 4XD Dupixent Syringe 300 mg/2 mL syringe 300 mg SUBCUT Q2W escitalopram oxalate 10 mg tablet 10 mg PO DAILY Referrals: Ivan Barnes PA-C [Primary Care Provider, Medical] Stand Alone Forms: Patient Portal/API
[2025-09-27 13:46] LABS: Add Manual Diff / Slide Review NO; Hematocrit 26.6 % (36-46); Hemoglobin 8.9 g/dL (12.0-16.0); Lymphocytes Absolute Auto 900 /uL (1100-4500); Mean Corpuscular HGB Conc 33.6 % (30-36); Mean Corpuscular Hemoglobin 36.5 PG (26-34); Mean Corpuscular Volume 108.8 fL (80-100); Platelet Count 137 X10^3/uL (150-400)
[2025-09-27 13:58] LABS: Alanine Aminotransferase 21 IU/L (<35); Albumin 3.3 g/dL (3.5-5.0); Albumin Globulin Ratio 1.0 (1.0-2.8); Alkaline Phosphatase 183 U/L (38-126); Blood Urea Nitrogen 21 mg/dL (7-17); Calcium 6.8 mg/dL (8.4-10.2); Carbon Dioxide 18 mmol/L (22-32); Chloride 104 mmol/L (98-107); Estimated Glomerular Filt Rate 29 mL/min (>60); Globulin 3.2 g/dL (1.7-4.1); Glucose 92 mg/dL (70-99); HEMOLYSIS < 15 (0-50); Potassium 4.3 mmol/L (3.4-5.1); Sodium 135 mmol/L (137-145); Total Protein 6.5 g/dL (6.3-8.2)
[2025-09-27 13:59] LABS: Magnesium 0.8 mg/dL (1.6-2.3)
[2025-09-27] MEDS: MAGNESIUM SULFATE 2 GM/50 ML PIGGYBACK IV ×2 (14:42→17:11)
[2025-09-27] MEDS: SODIUM CHLORIDE 0.9% 1,000 ML 1000 ML IV ×2 (14:45→17:10)
[2025-09-27] MEDS: CALCIUM GLUCONATE 9.3 MEQ in SODIUM CHLORIDE 0.9% 50 ML 140 MEQ IV ×2 (15:03→17:02)
[2025-09-27 16:17] LABS: Alanine Aminotransferase 20 IU/L (<35); Albumin 3.0 g/dL (3.5-5.0); Albumin Globulin Ratio 1.0 (1.0-2.8); Alkaline Phosphatase 177 U/L (38-126); Blood Urea Nitrogen 20 mg/dL (7-17); Calcium 7.3 mg/dL (8.4-10.2); Carbon Dioxide 17 mmol/L (22-32); Chloride 107 mmol/L (98-107); Estimated Glomerular Filt Rate 32 mL/min (>60); Globulin 3.1 g/dL (1.7-4.1); Glucose 98 mg/dL (70-99); HEMOLYSIS 20 (0-50); Magnesium 1.3 mg/dL (1.6-2.3); Potassium 4.2 mmol/L (3.4-5.1); Sodium 135 mmol/L (137-145); Total Protein 6.1 g/dL (6.3-8.2)
== END 2025-09-27 18:58 | disposition home or self-care (01) ==
PROVIDERS: Emergency Medicine; Emergency Provider Emergency Medicine; Family Provider Family Medicine; PCP Physician Assistant
DX: E83.51 Hypocalcemia (principal); E83.42 Hypomagnesemia; E86.9 Volume depletion, unspecified
CPT/HCPCS: 36415; 80053; 83735; 85025; 96365; 96366; 96367; 96368; 99284; J0612; J3475; J7030